=== PATIENT | male | born 1940 | race Caucasian/White ===

== ENCOUNTER 2022-12-09 07:28 | Day surgery (SDC) | payer MEDICARE, SELFPAY ==
[2022-12-09] MEDS: KETOROLAC OPHTH 0.5% 1 DROP EYE-LEFT ×2 (07:45→07:50)
[2022-12-09] MEDS: TETRACAINE 0.5% OPHTH 1 DROP EYE-LEFT ×2 (07:45→07:50)
[2022-12-09 07:49] VITALS: BMI 19.7
[2022-12-09 07:57] VITALS: BP 172/108; PULSE 64; RESP 16; TEMP 36.9; O2SAT 98
[2022-12-09] MEDS: SODIUM CHLORIDE 0.9 % (FLUSH) 10 ML SYRINGE IVF (08:00)
--- NOTE | 2022-12-09 08:11 | SUR.PREOP ---
The eye drops brought by the patient (Ketorolac and Prednisolone) are examined and I have determined they are labeled by the patient's pharmacy for this patient as prescribed by the surgeon. The bottles are intact, recently obtained and appear to be correct.
[2022-12-09] MEDS: TETRACAINE 0.5% OPHTH 2 DROP EYE-LEFT (08:41)
--- NOTE | 2022-12-09 08:42 | P.ANES_ITS ---
Anesthesia Charges Start Date/Time Anesthesia Start Date: 12/09/22 Anesthesia Start Time: 08:37 Stop Date/Time Anesthesia Stop Date: 12/09/22 Anesthesia Stop Time: 09:15 Summary Extremes of Age - Over 70 or under 1: OUTPATIENT PHYSICAL THERAPIST ASSISTANT
[2022-12-09] MEDS: BALANCED SALT IRRIG SOLN 15 ML EYE-LEFT (08:45)
--- NOTE | 2022-12-09 09:22 | W.ANESCHARGE ---
Anesthesia Charges Start Date/Time Anesthesia Start Date: 12/09/22 Anesthesia Start Time: 08:37 Stop Date/Time Anesthesia Stop Date: 12/09/22 Anesthesia Stop Time: 09:15
--- NOTE | 2022-12-09 09:23 | W.ANESCHARGE ---
Anesthesia Charges Start Date/Time Anesthesia Start Date: 12/09/22 Anesthesia Start Time: 08:37 Stop Date/Time Anesthesia Stop Date: 12/09/22 Anesthesia Stop Time: 09:15 Summary Extremes of Age - Over 70 or under 1: MDA
[2022-12-09 09:31] VITALS: BP 159/96; PULSE 69; RESP 16; TEMP 37.1; O2SAT 96
--- NOTE | 2022-12-09 10:15 | P.OPTPRC_ITS ---
Procedure Note Date of procedure: 12/09/22 Will [facility] bill your pro fee for this procedure?: Yes Procedure Description: SURGEON: Siria Alvarez MD PREOPERATIVE DIAGNOSIS: Nuclear sclerotic cataract, left eye. POSTOPERATIVE DIAGNOSIS: Nuclear sclerotic cataract, left eye. NAME OF OPERATION: Phacoemulsification of cataract with posterior chamber intraocular lens implantation in the left eye. ANESTHESIA: Topical. ESTIMATED BLOOD LOSS: Less than 2 cc. COMPLICATIONS: None. PATHOLOGY SPECIMEN: None. INDICATIONS: See consult note for details. The risks, benefits and alternatives of the procedure were explained to the patient, who elected to proceed and signed informed consent to do so. PROCEDURE: The patient was brought to the pre-holding area where the left eye was identified as the operative eye. I placed my initials above this eye. The patient received eye drops consisting of 0.5% tetracaine, 1% tropicamide, 10% phenylephrine, and 0.5% ketorolac. The patient was then brought to the operating room where the left eye was again identified as the operative eye. The eye was prepped with Betadine and draped in the usual sterile ophthalmic fashion. A #15 super-sharp blade was used to create a paracentesis site. 1% non-preserved intracameral lidocaine was injected into the anterior chamber. Endocoat was injected into the anterior chamber. A 2.4 mm keratome was used to create a three-plane self-sealing incision 1 mm anterior to the temporal limbus. A cystotome was used to create an anterior capsular leaflet. The Utrata forceps were used to extend this to form a continuous curvilinear capsulorrhexis. Hydrodissection was performed. The cataract was removed with phacoemulsification using the [id number] technique. The irrigation and aspiration tip was used to remove the remaining cortex. Healon was injected into the capsular bag. An COURTNEY ZCB00 intraocular lens of 18.5 diopters was injected into the capsular bag. The irrigation and aspiration tip was used to remove the remaining viscoelastic. Balanced salt solution on a cannula was used to hydrate the wound, and the wound was found to be watertight. The pupil was noted to be round. DISPOSITION: The patient was taken to the recovery room and discharged to home in stable condition. The patient was instructed to call me or go to the emergency department with any sudden change, including dramatic loss of vision, severe pain in the eye or eyebrow region, nausea, or vomiting. The patient will follow up in the clinic tomorrow morning.
== END 2022-12-09 10:00 | disposition home or self-care (01) ==
LOC: OR 07:30
PROVIDERS: PCP Family Medicine; Visit Provider Ophthalmology
PROC: (CPT 66984; principal; 2022-12-09 07:30)
DX: H25.12 Age-related nuclear cataract, left eye (principal)
CPT/HCPCS: 66984; 00142; 99100; A9270; J2250; J3010; V2632

== ENCOUNTER 2023-02-08 11:23 | Outpatient (CLI) | payer MEDICARE, SELFPAY | END 2023-02-08 11:24 | disposition home or self-care (01) | LOC: AMB 02-18 19:39 | PROVIDERS: PCP Family Medicine; Visit Provider Internal Medicine | DX: S59.901A Unspecified injury of right elbow, initial encounter (principal); W10.9XXA Fall (on) (from) unspecified stairs and steps, initial encounter; Y92.008 Other place in unspecified non-institutional (private) residence as the place of occurrence of the external cause | CPT/HCPCS: A0425; A0427 ==

== ENCOUNTER 2023-02-08 12:12 | Inpatient (IN) | payer MEDICARE, SELFPAY ==
[2023-02-08] VITALS (29 sets, daily range): BP systolic 122–150; BP diastolic 74–91; PULSE 72–82; RESP 16; TEMP 36.4–36.6; O2SAT 90–99; BMI 18.5; BMI 18.6
--- NOTE | 2023-02-08 | CRLHL7_ITS ---
For Patients: As a result of the Cures Act, medical imaging exams and procedure reports are released immediately into your electronic medical record. You may view this report before your referring provider. If you have questions, please contact your health care provider. INDICATION: Trauma. TECHNIQUE: CT cervical spine without contrast. COMPARISON: None. FINDINGS: Vertebrae: Alignment is normal. There are no fractures or suspicious bony lesions. Discs and facet joints: There are diffuse degenerative changes in the disc spaces and facet joints. Extraspinal findings: Paraspinous soft tissues are unremarkable. IMPRESSION: 1. No sign of acute injury. 2. Multilevel degenerative spondylosis. Please note that all CT scans at this facility use dose modulation, iterative reconstruction, and/or weight-based dosing when appropriate to reduce radiation dose to as low as reasonably achievable. Dictated by Jose Cruz Laurent MD @ 02/08/2023 1:27:41 PM (Electronically Signed)
--- NOTE | 2023-02-08 | CRLHL7_ITS ---
For Patients: As a result of the Century Cures Act, medical imaging exams and procedure reports are released immediately into your electronic medical record. You may view this report before your referring provider. If you have questions, please contact your health care provider. INDICATION: Trauma. TECHNIQUE: CT head without contrast. COMPARISON: None. FINDINGS: CSF spaces: Mild diffuse parenchymal volume loss. Brain parenchyma and extra-axial spaces: Moderate chronic white matter ischemic disease. The price-white differentiation is normal. No sign of mass, hemorrhage, or midline shift. No extra-axial fluid collection. Skull base and calvarium: The visualized paranasal sinuses and mastoid air cells demonstrate no acute or significant findings. The visualized orbits are grossly unremarkable. No skull fractures. IMPRESSION: No acute intracranial abnormality. Please note that all CT scans at this facility use dose modulation, iterative reconstruction, and/or weight-based dosing when appropriate to reduce radiation dose to as low as reasonably achievable. Dictated by Jose Cruz Laurent MD @ 02/08/2023 1:24:47 PM (Electronically Signed)
--- NOTE | 2023-02-08 | CRLHL7_ITS ---
For Patients: As a result of the 21st Century Cures Act, medical imaging exams and procedure reports are released immediately into your electronic medical record. You may view this report before your referring provider. If you have questions, please contact your health care provider. INDICATION: Trauma. TECHNIQUE: CT chest, abdomen and pelvis acquired with 74 cc Isovue 370 IV contrast. COMPARISON: CT abdomen/pelvis, December 19, 2017.. FINDINGS: CHEST: Cardiovascular structures: Heart size is normal. Coronary artery calcifications. Coronary artery calcifications. Thoracic aorta and main pulmonary artery are normal in caliber. Mediastinum and dillan: No mass or adenopathy. Lungs and pleura: Indeterminate 5.8 centimeter focal right upper lobe heterogeneous lesion, possibly loculated pleural effusion. Additional moderate right lower lobe loculated pleural effusion with pleural enhancement. Scattered atelectasis. No pneumothorax. Chest wall and axilla: No mass or adenopathy. Bones: Acute mild T12 compression fracture. ABDOMEN AND PELVIS: Liver: Unremarkable. No sign of acute injury. Gallbladder and bile ducts: Unremarkable. Pancreas: Unremarkable. Spleen: 10.1 centimeter cystic lesion arising from the superior aspect of the spleen Adrenal glands: Unremarkable. Kidneys: Tiny right renal cyst. GI tract: Unremarkable. Vascular structures: Unremarkable. Mesenteric arteries are patent. Lymph nodes: Unremarkable. Miscellaneous: Unremarkable. No free air or significant free fluid. Pelvic Organs: Moderately distended bladder. Bones: No acute fracture or dislocation. IMPRESSION: Acute mild T12 compression fracture. Recommend correlation with point tenderness. 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 Some internal hyperdensity which could suggest intracystic bleeding. Otherwise, no acute intra-abdominal/pelvic abnormality including large volume hemoperitoneum. Indeterminate 5.8 centimeter focal right upper lobe heterogeneous lesion, possibly loculated pleural effusion. Additional moderate right lower lobe loculated pleural effusion with pleural enhancement. Questionable connection between these TWO lesions which could suggest complex empyema. Sterility cannot be assessed by imaging. Right apical Pancoast tumor not entirely excluded. Recommend correlation with prior imaging if available. Consider outpatient non emergent PET CT or thoracentesis for tissue sampling if medically necessary. Case discussed with Hoang Blake at 1:50 p.m. on 02/08/2023. Please note that all CT scans at this facility use dose modulation, iterative reconstruction, and/or weight-based dosing when appropriate to reduce radiation dose to as low as reasonably achievable. Dictated by Jose Cruz Laurent MD @ 02/08/2023 1:48:26 PM (Electronically Signed)
[2023-02-08 13:00] LABS: Basophils Percent Auto 0.1 % (0.0-3.0); Eosinophils Percent Auto 0.2 % (0.0-7.0); Hematocrit 36.3 % (37.0-53.0); Hemoglobin* 12.5 gm/dL (13.5-17.5); Immature Granulocytes Pct Auto 0.4 %; Lymphocytes Percent Auto 50.4 % (20-44); Mean Corpuscular HGB Conc 34 gm/dL (32-36); Mean Corpuscular Hemoglobin 31 pg (26-34); Mean Corpuscular Volume 89 fL (80-100); Monocytes Percent Auto 2.8 % (0.0-11.0); Neutrophils Percent Auto 46.1 % (42.0-72.0); Platelet Count* 290 K/uL (140-440); RDW Coefficient of Variation % 13.7 % (11.5-15.5); Red Blood Count 4.06 m/uL (4.30-5.90); White Blood Count* 23.44 K/uL (4.50-11.00)
[2023-02-08 13:06] LABS: Slide Review Reflex Yes
[2023-02-08 13:11] LABS: Albumin* 3.9 g/dL (3.3-5.0)
[2023-02-08 13:12] LABS: Chloride* 83 mmol/L (96-114); Potassium* 3.9 mmol/L (3.6-5.1)
[2023-02-08 13:13] LABS: Prothrombin Time 13.8 Seconds
[2023-02-08 13:14] LABS: Anion Gap 9 mEq/L (7-15); Aspartate Amino Transferase* 37 U/L (12-35); Bilirubin Direct* 0.1 mg/dL (0.0-0.5); Bilirubin Total* 0.4 mg/dL (0.1-1.5); Carbon Dioxide* 30 mmol/L (20-32); Creatinine* 0.6 mg/dL (0.5-1.5); Est. Creatinine Clearance* 52.04; Estimated Glomerular Filt Rate 97 ml/min; Partial Thromboplastin Time* 32 Seconds (23-33); Total Protein* 6.4 g/dL (6.0-8.3)
[2023-02-08 13:15] LABS: Alanine Aminotransferase* 35 U/L (4-50); Alkaline Phosphatase* 94 U/L (40-150); Blood Urea Nitrogen* 12 mg/dL (7-30); Glucose* 88 mg/dL (60-115)
[2023-02-08 13:16] LABS: Ethanol* 0.25 % (0.01-0.03); Sodium* 122 mmol/L (135-149)
[2023-02-08 13:27] LABS: Troponin I* < 0.01 ng/mL (0.01-0.04)
[2023-02-08 13:28] LABS: Slide Review Acceptable Review (Acceptable)
[2023-02-08 13:28] LABS: Appearance Urine Clear (Clear); Bilirubin Urine Negative (Negative); Blood Urine 2+ (Negative); Color Urine Yellow (Yellow); Glucose Urine Negative (Negative); Ketones Urine Negative (Negative); Leukocyte Esterase Urine Negative (Negative); Nitrite Urine Negative (Negative); Protein Urine Trace (Negative); Urobilinogen Urine 0.2 (0.2-1.0)
[2023-02-08 13:55] LABS: RBC Urine 0-2 (0-2); WBC Urine 0-2 (0-5)
[2023-02-08 14:10] LABS: PCR FLU A Negative PCR FLU A (Negative); PCR FLU B Negative PCR FLU B (Negative); PCR RSV Negative PCR RSV (Negative)
[2023-02-08 14:13] LABS: SARS PCR* Negative SARS-CoV-2 (Negative)
--- NOTE | 2023-02-08 14:15 | ED_ITS ---
HPI - Fall General Date Seen: 02/08/23 Chief Complaint: Fall/Minor Trauma Stated Complaint: Fall down stairs Time Seen by Provider: 02/08/23 12:20 Source: patient, family and EMS Mode of arrival: EMS Limitations: no limitations History of Present Illness HPI Narrative: Patient is 83-year-old gentleman who presents here after a fall, he is brought in as a TTA be EMS. Patient has no complaints, tells me he is not in any pain. He by history slid down approximately 10-12 steps. Caught up and then was helped back up the stairs and then slid down the stairs also. He says he did really fall is more of a slide down the stairs. No loss of consciousness, but he has been very weak for the last 2-3 days, he has no history of fevers chills or sweats, no history of numbness tingling weakness, sore throat, diplopia double vision headaches. Or other issues. Is on aspirin, and on no other anticoagulants. He lives with his in the community, and there is son is also involved. Denies alcohol or drug use. MD complaint: fall Fall from: standing and down stairs (#) (10) Fall witnessed: yes, by family Place fall occurred: home Loss of consciousness: No Prolonged down time: no Symptoms prior to fall: other (Weakness) Associated symptoms (after fall): denies Related Data Home Medications Medication Instructions Recorded Confirmed aspirin 81 mg tablet,delayed 81 mg PO DAILY 11/24/22 02/08/23 release (Adult Low Dose Aspirin) chlorthalidone 25 mg tablet 25 mg PO DAILY 11/24/22 02/08/23 latanoprost 0.005 % eye drops 1 drp ophthalmic (eye) QPM 11/24/22 02/08/23 losartan 50 mg tablet 50 mg PO DAILY 11/24/22 02/08/23 lovastatin 40 mg tablet 20 mg PO HS 11/24/22 02/08/23 omeprazole 20 mg capsule,delayed 20 mg PO DAILY 11/24/22 02/08/23 release metoprolol succinate 100 mg 100 mg PO DAILY 02/08/23 02/08/23 tablet,extended release 24 hr timolol maleate 0.5 % eye drops 1 drp ophthalmic (eye) BID 02/08/23 02/08/23 Allergies Allergy/AdvReac Type Severity Reaction Status Date / Time No Known Drug Allergies Allergy Verified 02/08/23 13:13 Review of Systems Status of ROS: Reports: 10 or more systems reviewed and unremarkable except as noted in History and below [facility] Medical History Ganglion cyst ?M67.40 - Ganglion, unspecified site (ICD-10) Surgical History History of cataract extraction with lens replacement History of hernia repair ?Z98.890 - Other specified postprocedural states (ICD-10) ?Z87.19 - Personal history of other diseases of the digestive system (ICD-10) Social History Smoking Status: Never smoker Do you use any of these nicotine containing products: None How often do you have a drink containing alcohol: 2-3 times a week Alcohol type: beer How many standard drinks containing alcohol do you have on a typical day: 1 or 2 How often do you have six or more drinks on one occasion: Never AUDIT-C Alcohol total score: 3 Non-prescribed substance use: denies use Caffeine: Yes Little interest or pleasure in doing things: several days Feeling down, depressed, or hopeless: several days Exam Narrative: Exam Narrative: Patient is seen in room a, TT a is called. He is alert and oriented x3, GCS is 15/15 pupils equal round reactive to light there is no scleral icterus redness TMs normal no facial tenderness no swelling over his head or room back of his head. His neck is supple, he is in a C-collar, do not detect the alcohol on his breath. His chest is good air entry bilaterally with easy respirations he is very thin, heart sounds no clicks murmurs or gallops his abdomen is soft, there is no evidence of tenderness, is with his right posterior iliac crest, there is some bruising. Consistent with a very small external hematoma. Moves all extremities independently and well both right and left follows directions normally, proximal distal strength is assessed and normal, no palpable tenderness noted over his L-spine T-spine or C-spine on palpation percussion. Skin reveals no other petechiae rashes a not otherwise listed. Const: Vital Signs, click to edit/add: Vital Signs - 24 hr 02/08/23 12:24 02/08/23 12:53 Temperature 97.5 F L Pulse Rate [Left P ulse Oximeter] 72 Respiratory Rate 16 Blood Pressure [Le ft Upper Arm] 132/91 H Pulse Oximetry 95 95 Oxygen Delivery Me thod Room Air Documenting provider has reviewed patient's vital signs: yes Course Course ED Course: I spoke with the patient, his , son, he did want to stay in the hospital, but was unable to get out and walk. Given his safety concerns his strongly suggest he stay in the hospital, until he can at least ambulate on his own. I spoke to Inpatient physician who accepted him. 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 Which could be the reasoning behind his low-sodium. I also recommend the serial hemoglobins, to rule out a significant bleed. Vital Signs Vital signs: Initial Vital Signs Pulse Oximetry 95 02/08/23 12:24 Vital Signs Pulse Oximetry 95 02/08/23 12:24 Temperature 97.5 F L 02/08/23 12:53 Pulse Rate 72 02/08/23 12:53 Respiratory Rate 16 02/08/23 12:53 Blood Pressure 132/91 H 02/08/23 12:53 Pulse Oximetry 95 02/08/23 12:53 Oxygen Delivery Method Room Air 02/08/23 12:53 MDM - Fall MDM Narrative Medical decision making narrative: Life-threatening differential diagnosis is considered include: Subarachnoid hemorrhage, subdural hemorrhage, epidural hemorrhage. Other differential diagnosis considered include concussion, closed head injury, or neck fracture. Differential Diagnosis Differential diagnosis: Likely syncope Medical Records Attestation: I reviewed the patient's medical records. Lab Data Attestation: I reviewed the patient's lab results. Lab results narrative: Sodium is very low at 122, his white count is elevated which is consistent with his known chronic lymphocystic leukemia. Labs: Lab Results 02/08/23 02/08/23 02/08/23 Range/Units 12:52 13:20 Unknown WBC 23.44 H (4.50-11.00) K/uL RBC 4.06 L (4.30-5.90) m/uL Hgb 12.5 L (13.5-17.5) gm/dL Hct 36.3 L (37.0-53.0) % MCV 89 (80-100) fL MCH 31 (26-34) pg MCHC 34 (32-36) gm/dL RDW Coeff of Jocy 13.7 (11.5-15.5) % Plt Count 290 (140-440) K/uL Neut % (Auto) 46.1 (42.0-72.0) % Lymph % (Auto) 50.4 H (20-44) % [place] % (Auto) 2.8 (0.0-11.0) % Eos % (Auto) 0.2 (0.0-7.0) % Baso % (Auto) 0.1 (0.0-3.0) % Neut # (Auto) 10.80 H (1.7-7.0) K/uL Lymph # (Auto) 11.80 H (0.90-2.90) K/uL [place] # (Auto) 0.70 (0.00-0.90) K/UL Eos # (Auto) 0.00 (0.00-0.50) K/uL Baso # (Auto) 0.00 (0.00-0.30) K/uL Abs Immat Gran (auto) 0.10 (0.00-0.30) K/uL Imm/Tot Granulo (auto) 0.4 % Diff Slide Review Acceptable Review (Acceptable) INR 1.00 (0.91-1.10) APTT 32 (23-33) Seconds Sodium 122 L* (135-149) mmol/L Potassium 3.9 (3.6-5.1) mmol/L Chloride 83 L (96-114) mmol/L Carbon Dioxide 30 (20-32) mmol/L Anion Gap 9 (7-15) mEq/L BUN 12 (7-30) mg/dL Creatinine 0.6 (0.5-1.5) mg/dL Estimated Creat Clear 52.04 Estimated GFR 97 ml/min Glucose 88 (60-115) mg/dL Calcium 8.0 L (8.4-10.6) mg/dL Total Bilirubin 0.4 (0.1-1.5) mg/dL Direct Bilirubin 0.1 (0.0-0.5) mg/dL AST 37 H (12-35) U/L ALT 35 (4-50) U/L Alkaline Phosphatase 94 (40-150) U/L Troponin I < 0.01 L (0.01-0.04) ng/mL Total Protein 6.4 (6.0-8.3) g/dL Albumin 3.9 (3.3-5.0) g/dL Urine Color Yellow (Yellow) Urine Appearance Clear (Clear) Urine pH 7.0 (5.0-8.5) Ur Specific [place] 1.020 (1.000-1.030) Urine Protein Trace A (Negative) Urine Glucose (UA) Negative (Negative) Urine Ketones Negative (Negative) Urine Blood 2+ A (Negative) Urine Nitrite Negative (Negative) Urine Bilirubin Negative (Negative) Urine Urobilinogen 0.2 (0.2-1.0) Ur Leukocyte Esterase Negative (Negative) Urine RBC 0-2 (0-2) Urine WBC 0-2 (0-5) Ur Squamous Epith Cells None (None-Few) Urine Bacteria None (None) Urine Yeast Few A (None) Ethyl Alcohol 0.25 H (0.01-0.03) % SARS-CoV-2 (PCR) Negative SARS-CoV-2 (Negative) Influenza Type A (PCR) Negative PCR FLU A (Negative) Influenza Type B (PCR) Negative PCR FLU B (Negative) RSV (PCR) Negative PCR RSV (Negative) Imaging Data CT scan - head: Attestation: I have reviewed the pertinent imaging results. My impression: Patient: LEA SALAZAR Facility:?[facility] Patient ID:?[id number] Site Patient ID:?[id number]. Site :?[id number] Study:?CT Spine Cervical CODE TRAUMA - W/O-02/08/2023 12:43:41 PM Ordering Physician:Cristina Bolton Final Report: INDICATION: Trauma. TECHNIQUE: CT cervical spine without contrast. COMPARISON: None. FINDINGS: Vertebrae: Alignment is normal. There are no fractures or suspicious bony lesions. Discs and facet joints: There are diffuse degenerative changes in the disc spaces and facet joints. Extraspinal findings: Paraspinous soft tissues are unremarkable. IMPRESSION: 1. No sign of acute injury. 2. Multilevel degenerative spondylosis. Please note that all CT scans at this facility use dose modulation, iterative reconstruction, and/or weight-based dosing when appropriate to reduce radiation dose to as low as reasonably achievable. Dictated by Jose Cruz Laurent MD @ 02/08/2023 1:27:41 PM (Electronic Signature) Patient: [facility] Facility:?[facility] Patient ID:?[id number] Site Patient ID:?[id number]. Site :?[id number] Study:?CT Head CODE TRAUMA - W/O-02/08/2023 12:45:06 PM Ordering Physician:Cristina Bolton Final Report: INDICATION: Trauma. TECHNIQUE: CT head without contrast. COMPARISON: None. FINDINGS: CSF spaces: Mild diffuse parenchymal volume loss. Brain parenchyma and extra-axial spaces: Moderate chronic white matter ischemic disease. The price-white differentiation is normal. No sign of mass, hemorrhage, or midline shift. No extra-axial fluid collection. Skull base and calvarium: The visualized paranasal sinuses and mastoid air cells demonstrate no acute or significant findings. The visualized orbits are grossly unremarkable. No skull fractures. IMPRESSION: No acute intracranial abnormality. Please note that all CT scans at this facility use dose modulation, iterative reconstruction, and/or weight-based dosing when appropriate to reduce radiation dose to as low as reasonably achievable. Dictated by Jose Cruz Laurent MD @ 02/08/2023 1:24:47 PM (Electronic Signature) Patient: [facility] Facility:?[facility] Patient ID:?[id number] :?1940 Study:?CT Chest/Abd/Pelvis CODE TRAUMA - W/ 74CC [id number]/1/2024 12:45:56 PM Ordering Physician:Cristina Bolton Final Report: INDICATION: Trauma. TECHNIQUE: CT chest, abdomen and pelvis acquired with 74 cc Isovue 370 IV contrast. COMPARISON: CT abdomen/pelvis, December 19, 2017.. FINDINGS: CHEST: Cardiovascular structures: Heart size is normal. Coronary artery calcifications. Coronary artery calcifications. Thoracic aorta and main pulmonary artery are normal in caliber. Mediastinum and dillan: No mass or adenopathy. Lungs and pleura: Indeterminate 5.8 centimeter focal right upper lobe heterogeneous lesion, possibly loculated pleural effusion. Additional moderate right lower lobe loculated pleural effusion with pleural enhancement. Scattered atelectasis. No pneumothorax. Chest wall and axilla: No mass or adenopathy. Bones: Acute mild T12 compression fracture. ABDOMEN AND PELVIS: Liver: Unremarkable. No sign of acute injury. Gallbladder and bile ducts: Unremarkable. Pancreas: Unremarkable. Spleen: 10.1 centimeter cystic lesion arising from the superior aspect of the spleen Adrenal glands: Unremarkable. Kidneys: Tiny right renal cyst. GI tract: Unremarkable. Vascular structures: Unremarkable. Mesenteric arteries are patent. Lymph nodes: Unremarkable. Miscellaneous: Unremarkable. No free air or significant free fluid. Pelvic Organs: Moderately distended bladder. Bones: No acute fracture or dislocation. IMPRESSION: Acute mild T12 compression fracture. Recommend correlation with point tenderness. 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 Some internal hyperdensity which could suggest intracystic bleeding. Otherwise, no acute intra-abdominal/pelvic abnormality including large volume hemoperitoneum. Indeterminate 5.8 centimeter focal right upper lobe heterogeneous lesion, possibly loculated pleural effusion. Additional moderate right lower lobe loculated pleural effusion with pleural enhancement. Questionable connection between these TWO lesions which could suggest complex empyema. Sterility cannot be assessed by imaging. Right apical Pancoast tumor not entirely excluded. Recommend correlation with prior imaging if available. Consider outpatient non emergent PET CT or thoracentesis for tissue sampling if medically necessary. Case discussed with Hoang Blake at 1:50 p.m. on 02/08/2023. Please note that all CT scans at this facility use dose modulation, iterative reconstruction, and/or weight-based dosing when appropriate to reduce radiation dose to as low as reasonably achievable. Dictated by Jose Cruz Laurent MD @ 02/08/2023 1:48:26 PM (Electronic Signature) Discharge Plan Discharge Clinical Impression: Pleural effusion, Splenic cyst, Acute hyponatremia, Chronic lymphocytic leukemia, Weakness, Fall Patient Disposition: Admitted As Inpatient Condition: Guarded
[2023-02-08 17:43] LABS: Alanine Aminotransferase* 35 U/L (4-50); Creatine Kinase* 94 U/L (54-186)
[2023-02-08] MEDS: 0.9 % SODIUM CHLORIDE 1000 ml 1,000 ML 125 ML IV (17:46)
[2023-02-08] MEDS: THIAMINE 100 MG TABLET PO (17:46)
--- NOTE | 2023-02-08 18:43 | PM.IMHP1 ---
Hospitalist- H&P: HPI History of Present Illness Date Seen: 02/08/23 Chief complaint: Fall down stairs Narrative: Butch Musa is a 83 year old man presents to the hospital emergency department via EMS for evaluation of being unsteady on his feet in having slid down the stairs in his home. In his home he went upstairs to get some coffee in on his weight down he slipped and slid down the steps. Did not strike his head. No loss of consciousness. Right side of his arm and buttock area did strike the steps. No pain. insisted that he come in for further assessment. On assessment in the emergency department serum sodium is low at 122. CT scan of head and cervical spine is unremarkable. CT scan of chest, abdomen, pelvis also obtained and demonstrated from an acute mild T12 compression fracture, presumably from the fall. CT scan also demonstrated a 10 cm cystic lesion arising from the superior aspect of the spleen. Lastly the CT scan of the chest demonstrated an indeterminate 5.8 cm focal right upper lobe heterogeneous lesion possibly a loculated pleural effusion. Moderate right lower lobe loculated pleural effusion with pleural enhancement also suggested. There was concern whether not these 2 lesions could suggest a complex empyema. Mention is made that a right apical Pancoast tumor is not entirely excluded and that consideration be given to an outpatient nonemergent PET-CT or thoracentesis for tissue sampling. Toxicology testing in the emergency department demonstrates a blood alcohol level of 0.25. Patient tells me that he has been drinking about 3 shots of vodka daily since finding out his son was diagnosed with Parkinson's about 2-3 months ago. He tells me he is drinking this on the slide I, that his does not know he is drinking this. Denies drinking large volumes of water. Review of Systems Status of ROS: Reports: 10 or more systems reviewed and unremarkable except as noted in History and below Narrative: Denies fevers, rigors, diaphoresis. Denies night sweats or weight loss. Denies cough, dyspnea at rest, paroxysmal nocturnal dyspnea. Denies chest heaviness, pressure, tightness, or pain. Denies syncope or near-syncope. Denies loss of consciousness. Denies lower extremity edema. Denies nausea or vomiting. Denies abdominal pain. [facility] Medical History (Updated 02/08/23 @ 19:16 by Inocencio Palomino MD) Chronic lymphocytic leukemia ?C91.10 - Chronic lymphocytic leukemia of B-cell type not having achieved remission (ICD-10) Hyperlipidemia ?E78.5 - Hyperlipidemia, unspecified (ICD-10) GERD (gastroesophageal reflux disease) ?K21.9 - Gastro-esophageal reflux disease without esophagitis (ICD-10) HTN (hypertension) ?I10 - Essential (primary) hypertension (ICD-10) Cataract ?H26.9 - Unspecified cataract (ICD-10) Spleen hematoma ?S36.029A - Unspecified contusion of spleen, initial encounter (ICD-10) Ganglion cyst ?M67.40 - Ganglion, unspecified site (ICD-10) Surgical History History of cataract extraction with lens replacement History of hernia repair ?Z98.890 - Other specified postprocedural states (ICD-10) ?Z87.19 - Personal history of other diseases of the digestive system (ICD-10) Social History What is your current living situation?: I presently have a place to live Problems where you live: no known problems Problems where you live details: NA In the past 12 months, utilities in danger of being shut off: no In past 12 months, lack of transportation kept you from medical appts, meetings, work, or getting things needed for daily living: no In the past 12 mos, have been you worried that your food would run out before you had money to buy more?: never true In the past 12 mos, the food you bought just didn't last and you didn't have money to buy more?: never true Highest level of school completed/degree received: high school graduate Smoking Status: Never smoker Do you use any of these nicotine containing products: None Second hand tobacco smoke exposure: No How many standard drinks containing alcohol do you have on a typical day: 1 or 2 How often do you have six or more drinks on one occasion: Never AUDIT-C Alcohol total score: 0 Non-prescribed substance use: denies use Caffeine: Yes How often does anyone, including family, friends and others, physically hurt you: never How often does anyone, including family, friends and others, insult or talk down to you: never How often does anyone, including family, friends and others, threaten you with harm: never How often does anyone, including family, friends and others, scream or curse at you: never Little interest or pleasure in doing things: several days Feeling down, depressed, or hopeless: several days service: No Meds Home Medications and Allergies Home Medications Medication Instructions Recorded Confirmed Type aspirin 81 mg tablet,delayed 81 mg PO DAILY 11/24/22 02/08/23 History release (Adult Low Dose Aspirin) chlorthalidone 25 mg tablet 25 mg PO DAILY 11/24/22 02/08/23 History latanoprost 0.005 % eye drops 1 drp ophthalmic (eye) QPM 11/24/22 02/08/23 History losartan 50 mg tablet 50 mg PO DAILY 11/24/22 02/08/23 History lovastatin 40 mg tablet 20 mg PO HS 11/24/22 02/08/23 History omeprazole 20 mg capsule,delayed 20 mg PO DAILY 11/24/22 02/08/23 History release metoprolol succinate 100 mg 100 mg PO DAILY 02/08/23 02/08/23 History tablet,extended release 24 hr timolol maleate 0.5 % eye drops 1 drp ophthalmic (eye) BID 02/08/23 02/08/23 History Allergies Allergy/AdvReac Type Severity Reaction Status Date / Time No Known Drug Allergies Allergy Verified 02/08/23 13:13 Exam Narrative: Exam Narrative: Examined patient in the hospital room. He appears comfortable no acute distress. Vision and hearing are grossly normal. Alert and oriented to self, place, time. Asks me several times the same question including why he has a low-sodium, what can be done to treat the low-sodium, does he have a tumor, what can be done to further assess or treat that, and so forth. Friendly, articulate, cooperative. Cranial nerves 3-12 are grossly normal. Moves all 4 extremities. Lungs clear to auscultation. Heart tones with regular rhythm. Grade 2/6 systolic murmur across precordium. Abdomen is thin with active bowel sounds, soft, nontender. Skin with some ecchymoses noted in right arm and right side of torsum. Const: Vital Signs, click to edit/add: Vital Signs - 24 hr 02/08/23 12:24 02/08/23 12:50 02/08/23 12:51 Temperature Pulse Rate 78 Pulse Rate [Left P ulse Oximeter] Pulse Rate [Pulse Oximeter] Respiratory Rate 16 Blood Pressure 131/84 126/75 Blood Pressure [Le ft Upper Arm] Blood Pressure [Ri ght Arm] Pulse Oximetry 95 95 Oxygen Delivery [facility] Room Air 02/08/23 12:52 02/08/23 12:53 02/08/23 13:00 Temperature 97.5 F L Pulse Rate 78 78 Pulse Rate [Left P ulse Oximeter] 72 Pulse Rate [Pulse Oximeter] Respiratory Rate 16 Blood Pressure Blood Pressure [Le ft Upper Arm] 132/91 H Blood Pressure [Ri ght Arm] Pulse Oximetry 93 95 93 Oxygen Delivery [facility] Room Air 02/08/23 13:02 02/08/23 13:11 02/08/23 13:15 Temperature Pulse Rate 81 80 79 Pulse Rate [Left P ulse Oximeter] Pulse Rate [Pulse Oximeter] Respiratory Rate Blood Pressure 128/83 132/75 Blood Pressure [Le ft Upper Arm] Blood Pressure [Ri ght Arm] Pulse Oximetry 94 96 94 Oxygen Delivery [facility] 02/08/23 13:22 02/08/23 13:30 02/08/23 13:32 Temperature Pulse Rate 79 82 78 Pulse Rate [Left P ulse Oximeter] Pulse Rate [Pulse Oximeter] Respiratory Rate Blood Pressure 126/82 141/85 H Blood Pressure [Le ft Upper Arm] Blood Pressure [Ri ght Arm] Pulse Oximetry 95 99 94 Oxygen Delivery [facility] 02/08/23 13:42 02/08/23 13:45 02/08/23 13:52 Temperature Pulse Rate 79 76 Pulse Rate [Left P ulse Oximeter] Pulse Rate [Pulse Oximeter] Respiratory Rate Blood Pressure 126/79 135/84 Blood Pressure [Le ft Upper Arm] Blood Pressure [Ri ght Arm] Pulse Oximetry 94 92 Oxygen Delivery [facility] 02/08/23 14:00 02/08/23 14:01 02/08/23 14:11 Temperature Pulse Rate 80 81 80 Pulse Rate [Left P ulse Oximeter] Pulse Rate [Pulse Oximeter] Respiratory Rate Blood Pressure 140/80 H 127/86 Blood Pressure [Le ft Upper Arm] Blood Pressure [Ri ght Arm] Pulse Oximetry 95 95 94 Oxygen Delivery [facility] 02/08/23 14:15 02/08/23 14:22 02/08/23 14:30 Temperature Pulse Rate 80 79 82 Pulse Rate [Left P ulse Oximeter] Pulse Rate [Pulse Oximeter] Respiratory Rate Blood Pressure 122/74 Blood Pressure [Le ft Upper Arm] Blood Pressure [Ri ght Arm] Pulse Oximetry 93 95 95 Oxygen Delivery Vt thod 02/08/23 14:31 02/08/23 14:42 02/08/23 14:51 Temperature Pulse Rate 78 78 Pulse Rate [Left P ulse Oximeter] Pulse Rate [Pulse Oximeter] Respiratory Rate 16 Blood Pressure 127/77 129/84 122/74 Blood Pressure [Le ft Upper Arm] Blood Pressure [Ri ght Arm] Pulse Oximetry 95 93 [facility] 02/08/23 15:30 02/08/23 15:30 02/08/23 16:27 Temperature 97.9 F 97.9 F Pulse Rate Pulse Rate [Left P ulse Oximeter] Pulse Rate [Pulse Oximeter] 77 77 Respiratory Rate 16 16 16 Blood Pressure Blood Pressure [Le ft Upper Arm] Blood Pressure [Ri ght Arm] 147/84 H 147/84 H Pulse Oximetry 90 90 90 [facility] Room Air Room Air Hospitalist - H&P: Result Labs Labs: Short CBC 02/08/23 Range/Units 12:52 WBC 23.44 H (4.50-11.00) K/uL Hgb 12.5 L (13.5-17.5) gm/dL Hct 36.3 L (37.0-53.0) % Plt Count 290 (140-440) K/uL BMP 02/08/23 12:52 Sodium 122 L* Potassium 3.9 Chloride 83 L Carbon Dioxide 30 BUN 12 Creatinine 0.6 Glucose 88 Calcium 8.0 L Cardiac Enzymes 02/08/23 02/08/23 Range/Units 12:52 12:53 Total Creatine Kinase 94 (54-186) U/L Troponin I < 0.01 L (0.01-0.04) ng/mL Liver Function 02/08/23 02/08/23 Range/Units 12:52 12:53 Total Bilirubin 0.4 (0.1-1.5) mg/dL Direct Bilirubin 0.1 (0.0-0.5) mg/dL AST 37 H (12-35) U/L ALT 35 35 (4-50) U/L Alkaline Phosphatase 94 (40-150) U/L Albumin 3.9 (3.3-5.0) g/dL Urine 02/08/23 Range/Units Unknown Urine Color Yellow (Yellow) Urine Appearance Clear (Clear) Urine pH 7.0 (5.0-8.5) Ur Specific [place] 1.020 (1.000-1.030) Urine Protein Trace A (Negative) Urine Glucose (UA) Negative (Negative) Assessment and Plan Assessment and plan (1) Fall: Status: Acute (2) Weakness: Problem comment: -physical therapy to assess and treat Status: Acute (3) Acute hyponatremia: Problem comment: -most likely related to alcohol abuse -stop the chlorthalidone -2000 mL fluid restriction -normal saline IV -monitor serum sodium Status: Acute (4) Alcohol intoxication: Status: Acute (5) Alcohol abuse: Problem comment: -he tells me he is drinking 3 shots of vodka daily, unbeknownst to his , and does not want his medical providers to tell his -monitor for alcohol withdrawal in cover with [facility] protocol Status: Acute (6) Chronic lymphocytic leukemia: Status: Acute (7) Pleural effusion: Problem comment: -CT scan of chest on 02/08/2023 demonstrates: Indeterminate 5.8 centimeter focal right upper lobe heterogeneous lesion, possibly loculated pleural effusion. Additional moderate right lower lobe loculated pleural effusion with pleural enhancement. Questionable connection between these TWO lesions which could suggest complex empyema. Sterility cannot be assessed by imaging. Right apical Pancoast tumor not entirely excluded. Recommend correlation with prior imaging if available. Consider outpatient non emergent PET CT or thoracentesis for tissue sampling if medically necessary. 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 Some internal hyperdensity which could suggest intracystic bleeding. Otherwise, no acute intra-abdominal/pelvic abnormality including large volume hemoperitoneum. Status: Acute (9) Impaired cognition: Problem comment: -he asks the same question multiple times. -unclear if this is acute or chronic -OT to assess cognition Status: Acute (10) T12 compression fracture: Problem comment: -possible, based on CT scan findings from 02/08/2023 but without symptoms on the patient's part: Acute mild T12 compression fracture. Status: Acute Plan 1. Reviewed impression with patient. Answered his questions. 2. Patient is agreeable with above stated plans and recommendations.
[2023-02-08 20:13] LABS: Sodium* 121 mmol/L (135-149)
[2023-02-08] MEDS: GABAPENTIN 300 MG CAPSULE PO (20:30)
[2023-02-08] MEDS: LATANOPROST 0.005% OPHTH 1 DROP EYE-BOTH (20:30)
[2023-02-08] MEDS: SODIUM CHLORIDE 0.9 % (FLUSH) 10 ML SYRINGE 5 ML IVF (20:30)
[2023-02-08] MEDS: timoloL maleate 0.5 % 1 DROP EYE-BOTH (20:34)
[2023-02-08] MEDS: SODIUM CHLORIDE 1 GM TABLET PO (21:33)
--- NOTE | 2023-02-08 22:21 | PC.NURSE ---
Pt arrived to floor at 1500 from ED.?Pt alert and oriented. Pt pleasant and cooperative. Pt had no complaints of pain. Pt has bruises throughout body; mainly on the right side. Pt is SBA with gait belt and walker. Pt using call light appropriately. Pt is currently on Q4 CWAW?s; scores as follows: 1,0,0.?
[2023-02-09] VITALS (9 sets, daily range): BP systolic 131–165; BP diastolic 90–115; PULSE 63–115; RESP 16–18; TEMP 36.7–36.8; O2SAT 92–96; BMI 18.7
[2023-02-09] MEDS: MELATONIN 3 MG TABLET PO ×2 (00:09→20:08)
[2023-02-09] MEDS: ACETAMINOPHEN 325 MG TABLET 650 MG PO ×2 (00:27→20:07)
[2023-02-09] MEDS: 0.9 % SODIUM CHLORIDE 1000 ml 1,000 ML 125 ML IV ×3 (01:41→17:15)
[2023-02-09] MEDS: OMEPRAZOLE 20 MG CAPSULE DR PO (07:01)
[2023-02-09 07:12] LABS: Hematocrit 35.4 % (37.0-53.0); Hemoglobin* 12.6 gm/dL (13.5-17.5); Mean Corpuscular HGB Conc 36 gm/dL (32-36); Mean Corpuscular Hemoglobin 31 pg (26-34); Mean Corpuscular Volume 87 fL (80-100); Platelet Count* 284 K/uL (140-440); Red Blood Count 4.07 m/uL (4.30-5.90); White Blood Count* 17.64 K/uL (4.50-11.00)
[2023-02-09 07:28] LABS: Albumin* 3.9 g/dL (3.3-5.0); Chloride* 84 mmol/L (96-114); Potassium* 3.1 mmol/L (3.6-5.1); Slide Review Reflex No
[2023-02-09 07:30] LABS: Creatinine* 0.5 mg/dL (0.5-1.5); Est. Creatinine Clearance* 52.78; Estimated Glomerular Filt Rate 102 ml/min
[2023-02-09 07:31] LABS: Anion Gap 13 mEq/L (7-15); Aspartate Amino Transferase* 36 U/L (12-35); Blood Urea Nitrogen* 11 mg/dL (7-30); Calcium* 8.2 mg/dL (8.4-10.6); Carbon Dioxide* 25 mmol/L (20-32); Creatine Kinase* 129 U/L (54-186); Glucose* 79 mg/dL (60-115); Phosphorus* 3.3 mg/dL (2.5-4.5)
--- NOTE | 2023-02-09 07:39 | PC.NURSE ---
Pt alert and oriented x3. Afebrile. Pt reports 3/10 pain in lower back pain managed with PRN medications. Pt CIWA scores 0-1. Pt denies SOB, chest pain, and N/V. Pt is up SBA with walker and gait belt. Pt slept poorly overnight, PRN melatonin given with little relief.
[2023-02-09 07:44] LABS: Sodium* 122 mmol/L (135-149)
[2023-02-09] MEDS: MULTIVITAMIN/MINERALS 1 TABLET 1 TAB PO (09:26)
[2023-02-09] MEDS: SODIUM CHLORIDE 0.9 % (FLUSH) 10 ML SYRINGE 5 ML IVF ×2 (09:26→20:10)
[2023-02-09] MEDS: GABAPENTIN 300 MG CAPSULE PO ×2 (09:26→20:08)
[2023-02-09] MEDS: LOSARTAN POTASSIUM 50 MG TABLET PO (09:26)
[2023-02-09] MEDS: SODIUM CHLORIDE 1 GM TABLET PO ×3 (09:26→17:14)
[2023-02-09] MEDS: METOPROLOL SUCCINATE (XL) 100 MG TAB PO (09:26)
[2023-02-09] MEDS: FOLIC ACID 1 MG TABLET PO (09:26)
[2023-02-09] MEDS: timoloL maleate 0.5 % 1 DROP EYE-BOTH ×2 (09:27→20:10)
--- NOTE | 2023-02-09 13:59 | PC.NURSE ---
End of shift: Patient has been up with assist of 1 and walker a few times today. PIV intact. Lung sounds clear. Denies nausea/vomiting. CIWAs are 0-4 range. Has mentioned many times I don't want my to know about the blood alcohol result. I am going to stop drinking. I have just had a lot of things going on in my life and this helps take the edge off. Patient also requested some Ativan for anxiety. MD was notified of this. Patient voiding. LBM was a few days ago but states that is normal and does not feel uncomfortable. Pt on a 2L fluid restriction and regular diet. Appetite is poor but forcing himself to eat. PT/OT following patient. Will do a MOCA once sodium is better. Patient concerned about the spot that was found on his lung. Patient aware that this will be looked more into in the outpatient setting. and daughter in law were here this morning but gone now.
--- NOTE | 2023-02-09 14:39 | PM.IMPN1 ---
Progress Note: A&P Assessment and plan (1) Fall: Problem details: -while intoxicated, resulting in to T12 fracture -PT/OT Status: Acute (2) Weakness: Problem details: -in setting of alcohol use and hyponatremia -physical therapy to assess and treat Status: Acute (3) Acute hyponatremia: Problem details: -most likely related to alcohol abuse -stop the chlorthalidone -decrease to 1800 mL fluid restriction -normal saline IV as he appears a bit dry -monitor serum sodium Status: Acute (4) Alcohol intoxication: Problem details: -blood alcohol 0.25 on admission. CIWA protocol Status: Acute (5) Alcohol abuse: Problem details: -he tells me he is drinking 3 shots of vodka daily, unbeknownst to his , and does not want his medical providers to tell his -monitor for alcohol withdrawal in cover with CIWA protocol Status: Acute (6) Chronic lymphocytic leukemia: Problem details: -noted. Stable leukocytosis Status: Acute (7) Pleural effusion: Problem details: -CT scan of chest on 02/08/2023 demonstrates: Indeterminate 5.8 centimeter focal right upper lobe heterogeneous lesion, possibly loculated pleural effusion. Additional moderate right lower lobe loculated pleural effusion with pleural enhancement. Questionable connection between these TWO lesions which could suggest complex empyema. Sterility cannot be assessed by imaging. Right apical Pancoast tumor not entirely excluded. Recommend correlation with prior imaging if available. Consider outpatient non emergent PET CT or thoracentesis for tissue sampling if medically necessary. -patient very anxious about incidental finding. Daughter would like to assist in setting up outpatient PET scan. Discussed follow up with PCP Status: Acute (8) Splenic cyst: Problem details: -CT scan of abdomen on 02/08/2023 demonstrates: Large 10.1 centimeter cystic lesion arising from the superior aspect of the spleen, possibly chronic hematoma in this patient with splenic hematoma seen on prior CT performed December 19, 2017. Some internal hyperdensity which could suggest intracystic bleeding. Otherwise, no acute intra-abdominal/pelvic abnormality including large volume hemoperitoneum. -outpatient follow up with PCP Status: Acute (9) Impaired cognition: Problem details: -he asks the same question multiple times. -unclear if this is acute or chronic -OT to assess cognition -1/2: Hard to assess if improving. Patient very focused on incidental pulmonary findings, repeating same questions regarding plan of care moving forward Status: Acute (10) T12 compression fracture: Problem details: -possible, based on CT scan findings from 02/08/2023 but without symptoms on the patient's part: Acute mild T12 compression fracture. Status: Acute (11) Hypokalemia: Problem details: -potassium 3.1 today. Replace with oral potassium b.i.d. times 6 doses, monitoring daily, adjusting as necessary Status: Acute (12) Anxiety: Problem details: -Patient reports using alcohol to cope with anxiety over son's current state of health. Told nurse he could give up drinking but requesting Ativan instead. Tells her his has some at home -no ativan recommended, except what is needed during CIWA scoring Status: Acute Time Spent With Patient Total time spent: Total time spent caring for the patient today was 45 minutes. This includes time spent for the visit reviewing the chart, time spent during the visit, time spent after the visit and documentation and planning in coordination of care. Subjective Date Seen: 02/09/23 Exam Const: Vital Signs, click to edit/add: Vital Signs - 24 hr 02/08/23 14:42 02/08/23 14:51 02/08/23 15:30 Temperature 97.9 F Pulse Rate 78 Pulse Rate [Pulse Oximeter] 77 Pulse Rate [orthos tatic lying Pulse Oximeter] Pulse Rate [orthos tatic sitting Puls e Oximeter] Pulse Rate [orthos tatic standing Pul se Oximeter] Respiratory Rate 16 16 Blood Pressure 129/84 122/74 Blood Pressure [Ri ght Arm] 147/84 H Blood Pressure [or thostatic lying Le ft Arm] Blood Pressure [or thostatic sitting Left Arm] Blood Pressure [or thostatic standing Left Arm] Pulse Oximetry 93 90 Oxygen Delivery Me thod Room Air Room Air 02/08/23 15:30 02/08/23 16:27 02/08/23 17:30 Temperature 97.9 F 97.9 F Pulse Rate Pulse Rate [Pulse Oximeter] 77 77 Pulse Rate [orthos tatic lying Pulse Oximeter] Pulse Rate [orthos tatic sitting Puls e Oximeter] Pulse Rate [orthos tatic standing Pul se Oximeter] Respiratory Rate 16 16 16 Blood Pressure Blood Pressure [Ri ght Arm] 147/84 H 147/84 H Blood Pressure [or thostatic lying Le ft Arm] Blood Pressure [or thostatic sitting Left Arm] Blood Pressure [or thostatic standing Left Arm] Pulse Oximetry 90 90 95 Oxygen Delivery Me thod Room Air Room Air Room Air 02/08/23 19:00 02/08/23 23:20 02/08/23 23:20 Temperature 97.8 F 97.6 F Pulse Rate Pulse Rate [Pulse Oximeter] 78 75 72 Pulse Rate [orthos tatic lying Pulse Oximeter] Pulse Rate [orthos tatic sitting Puls e Oximeter] Pulse Rate [orthos tatic standing Pul se Oximeter] Respiratory Rate 16 16 16 Blood Pressure Blood Pressure [Ri ght Arm] 150/89 H 148/79 H Blood Pressure [or thostatic lying Le ft Arm] Blood Pressure [or thostatic sitting Left Arm] Blood Pressure [or thostatic standing Left Arm] Pulse Oximetry 95 90 Oxygen Delivery Or thod Room Air Room Air 02/08/23 23:20 02/09/23 03:30 02/09/23 08:10 Temperature 98.3 F 98.1 F Pulse Rate Pulse Rate [Pulse Oximeter] 80 96 Pulse Rate [orthos tatic lying Pulse Oximeter] Pulse Rate [orthos tatic sitting Puls e Oximeter] Pulse Rate [orthos tatic standing Pul se Oximeter] Respiratory Rate 16 18 16 Blood Pressure Blood Pressure [Ri ght Arm] 152/90 H 163/95 H Blood Pressure [or thostatic lying Le ft Arm] Blood Pressure [or thostatic sitting Left Arm] Blood Pressure [or thostatic standing Left Arm] Pulse Oximetry 93 92 94 Oxygen Delivery Or thod Room Air Room Air Room Air 02/09/23 08:44 02/09/23 10:47 02/09/23 11:50 Temperature 98.1 F Pulse Rate Pulse Rate [Pulse Oximeter] 79 Pulse Rate [orthos tatic lying Pulse Oximeter] 100 Pulse Rate [orthos tatic sitting Puls e Oximeter] 105 H Pulse Rate [orthos tatic standing Pul se Oximeter] 115 H Respiratory Rate 16 Blood Pressure Blood Pressure [Ri ght Arm] 157/94 H Blood Pressure [or thostatic lying Le ft Arm] 163/95 H Blood Pressure [or thostatic sitting Left Arm] 165/104 H Blood Pressure [or thostatic standing Left Arm] 144/115 H Pulse Oximetry 96 94 Oxygen Delivery Me thod Room Air Room Air Labs Labs: Laboratory Results - last 24 hr 02/08/23 02/08/23 02/08/23 12:52 12:53 17:05 WBC RBC Hgb Hct MCV MCH MCHC Plt Count Sodium Potassium Chloride Carbon Dioxide Anion Gap BUN Creatinine Estimated Creat Clear Estimated GFR Glucose Calcium Phosphorus AST ALT 35 Total Creatine Kinase 94 Albumin Lab Acknowledgement Test Added Blood Type O Positive Antibody Screen NEGATIVE 02/08/23 02/09/23 19:48 06:20 WBC 17.64 H RBC 4.07 L Hgb 12.6 L Hct 35.4 L MCV 87 MCH 31 MCHC 36 Plt Count 284 Sodium 121 L* 122 L* Potassium 3.1 L Chloride 84 L Carbon Dioxide 25 Anion Gap 13 BUN 11 Creatinine 0.5 Estimated Creat Clear 52.78 Estimated GFR 102 Glucose 79 Calcium 8.2 L Phosphorus 3.3 AST 36 H ALT Total Creatine Kinase 129 Albumin 3.9 Lab Acknowledgement Blood Type Antibody Screen
[2023-02-09] MEDS: POTASSIUM CHLORIDE 10 MEQ CAPSULE ER 20 MEQ PO (17:12)
[2023-02-09] MEDS: THIAMINE 100 MG TABLET PO (17:14)
[2023-02-09 18:16] LABS: Alanine Aminotransferase* 28 U/L (4-50)
[2023-02-09] MEDS: LATANOPROST 0.005% OPHTH 1 DROP EYE-BOTH (20:09)
--- NOTE | 2023-02-09 23:00 | PC.NURSE ---
End of shift [id number] - Pt alert, oriented, cooperative, and soft spoken. Pt using urinal at bedside appropriately. Up to chair with standby assistance. Tolerating RA, regular diet, fluid restriction. VSS, afebrile. Pt denies SOB, nausea, dizziness. PT scored 1 on CIWA rating, no tremors noted, pt denies perspiration, sensory/tactile disruptions. Pt reported difficulty sleeping. During conversation about sleep, pt asked RN for lorazepam, specifically, to help with sleep because he has a lot on his mind. RN provided emotional support and education regarding patient's feelings, current stressors, and coping mechanisms. RN explained that melatonin was available as a sleep aid and pt agreed to try it. RN recommended pt follow up with regular doctor upon d/c for continued concerns regarding his sleep and stress. Pt observed to sleep, appears to be resting comfortably at end of shift.
[2023-02-10] VITALS (7 sets, daily range): BP systolic 126–152; BP diastolic 77–93; PULSE 63–76; RESP 16–20; TEMP 36.8–37.2; O2SAT 90–93
[2023-02-10] MEDS: 0.9 % SODIUM CHLORIDE 1000 ml 1,000 ML 125 ML IV ×3 (00:40→16:27)
[2023-02-10] MEDS: OMEPRAZOLE 20 MG CAPSULE DR PO (05:55)
--- NOTE | 2023-02-10 06:36 | PC.NURSE ---
SHIFT NOTE : Pt pleasant and cooperative, A&O, CIWA score 4 overnight, no Ativan needed per protocol. Pt denies pain, SOB, CP, and N/V. His only concern was inability to sleep, PRN Melatonin given without relief, updated for possible PRN sleeping med, no new orders received. Pt using urinal in bed, otherwise up SBA. VSS on RA.
[2023-02-10 07:21] LABS: Hematocrit 33.4 % (37.0-53.0); Hemoglobin* 11.5 gm/dL (13.5-17.5); Mean Corpuscular HGB Conc 34 gm/dL (32-36); Mean Corpuscular Hemoglobin 31 pg (26-34); Mean Corpuscular Volume 90 fL (80-100); Platelet Count* 228 K/uL (140-440); White Blood Count* 14.09 K/uL (4.50-11.00)
[2023-02-10 07:24] LABS: Slide Review Reflex No
[2023-02-10 07:40] LABS: Chloride* 90 mmol/L (96-114)
[2023-02-10 07:41] LABS: Albumin* 3.2 g/dL (3.3-5.0); Potassium* 3.3 mmol/L (3.6-5.1); Sodium* 126 mmol/L (135-149)
[2023-02-10 07:43] LABS: Anion Gap 6 mEq/L (7-15); Blood Urea Nitrogen* 10 mg/dL (7-30); Carbon Dioxide* 30 mmol/L (20-32); Creatinine* 0.5 mg/dL (0.5-1.5); Est. Creatinine Clearance* 53.71; Estimated Glomerular Filt Rate 102 ml/min
[2023-02-10 07:44] LABS: Aspartate Amino Transferase* 29 U/L (12-35); Calcium* 8.1 mg/dL (8.4-10.6); Glucose* 94 mg/dL (60-115); Phosphorus* 2.7 mg/dL (2.5-4.5)
[2023-02-10] MEDS: LOSARTAN POTASSIUM 50 MG TABLET PO (08:42)
[2023-02-10] MEDS: MULTIVITAMIN/MINERALS 1 TABLET 1 TAB PO (08:42)
[2023-02-10] MEDS: SODIUM CHLORIDE 1 GM TABLET PO ×3 (08:42→18:18)
[2023-02-10] MEDS: FOLIC ACID 1 MG TABLET PO (08:42)
[2023-02-10] MEDS: GABAPENTIN 300 MG CAPSULE PO ×2 (08:43→20:56)
[2023-02-10] MEDS: METOPROLOL SUCCINATE (XL) 100 MG TAB PO (08:43)
[2023-02-10] MEDS: POTASSIUM CHLORIDE 10 MEQ CAPSULE ER 20 MEQ PO ×2 (08:43→18:18)
[2023-02-10] MEDS: SODIUM CHLORIDE 0.9 % (FLUSH) 10 ML SYRINGE 5 ML IVF (08:44)
[2023-02-10] MEDS: timoloL maleate 0.5 % 1 DROP EYE-BOTH ×2 (08:44→20:56)
[2023-02-10] MEDS: THIAMINE 100 MG TABLET PO (16:27)
--- NOTE | 2023-02-10 16:44 | PM.IMPN1 ---
Progress Note: A&P Assessment and plan (1) Fall: Problem details: -while intoxicated, resulting in T12 fracture -PT/OT Status: Acute (2) Weakness: Problem details: -in setting of alcohol use and hyponatremia -physical therapy to assess and treat, walking with walker Status: Acute (3) Acute hyponatremia: Problem details: -most likely related to alcohol abuse -stop the chlorthalidone -decrease to 1800 mL fluid restriction, continue gentle IV hydration with normal saline -monitor serum sodium, improved to 126 from 122, appropriately so Status: Acute (4) Alcohol intoxication: Problem details: -blood alcohol 0.25 on admission. CIWA protocol, score 4 overnight Status: Acute (5) Alcohol abuse: Problem details: -he tells me he is drinking 3 shots of vodka daily, unbeknownst to his , and does not want his medical providers to tell his -monitor for alcohol withdrawal in cover with CIWA protocol -patient does admit to drinking 1 pint vodka prior to admission. States he has no plan to return to drinking Status: Acute (6) Chronic lymphocytic leukemia: Problem details: -noted. Stable leukocytosis Status: Acute (7) Pleural effusion: Problem details: -CT scan of chest on 02/08/2023 demonstrates: Indeterminate 5.8 centimeter focal right upper lobe heterogeneous lesion, possibly loculated pleural effusion. Additional moderate right lower lobe loculated pleural effusion with pleural enhancement. Questionable connection between these TWO lesions which could suggest complex empyema. Sterility cannot be assessed by imaging. Right apical Pancoast tumor not entirely excluded. Recommend correlation with prior imaging if available. Consider outpatient non emergent PET CT or thoracentesis for tissue sampling if medically necessary. -patient very anxious about incidental finding. Daughter would like to assist in setting up outpatient PET scan. Discussed follow up with PCP Status: Acute (8) Splenic cyst: Problem details: -CT scan of abdomen on 02/08/2023 demonstrates: Large 10.1 centimeter cystic lesion arising from the superior aspect of the spleen, possibly chronic hematoma in this patient with splenic hematoma seen on prior CT performed December 19, 2017. Some internal hyperdensity which could suggest intracystic bleeding. Otherwise, no acute intra-abdominal/pelvic abnormality including large volume hemoperitoneum. -outpatient follow up with PCP Status: Acute (9) Impaired cognition: Problem details: -he asks the same question multiple times. -unclear if this is acute or chronic -OT to assess cognition -/2: Hard to assess if improving. Patient very focused on incidental pulmonary findings, repeating same questions regarding plan of care moving forward Status: Acute (10) T12 compression fracture: Problem details: -possible, based on CT scan findings from 02/08/2023 but without symptoms on the patient's part: Acute mild T12 compression fracture. Status: Acute (11) Hypokalemia: Problem details: -potassium 3.3 today. Replace with oral potassium b.i.d. times 6 doses, monitoring daily, adjusting as necessary Status: Acute (12) Anxiety: Problem details: -Patient reports using alcohol to cope with anxiety over son's current state of health. Told nurse he could give up drinking but requesting Ativan instead. Tells her his has some at home -no ativan recommended, except what is needed during CIWA scoring -suggested outpatient managment but patient not currently interested Status: Acute Subjective Date Seen: 02/10/23 Interval history: Patient continues to feel better. Still a bit tired. Sodium slowly, appropriately, coming up. Ambulating. Tolerating orals. No nausea, vomiting. Tells me he no longer wants to drink. Isn't sure how to manage his current worries but is not interested in outpatient help. Exam Narrative: Exam Narrative: PHYSICAL EXAM General: Pleasant, conversant, NAD HEENT: Normocephalic, atraumatic, sclera white, EOMI, oral mucosa moist Cardiovascular: RRR, S1S2. No pitting edema Pulmonary: CTA bilaterally without rhonchi, rales, expiratory wheezes. No dyspnea Abdominal: Soft, nondistended, NTTP Neurological: Alert, answering questions appropriately, cranial nerves intact, no focal findings Extremities: No gross joint deformity or swelling. AROMI. Neurovascularly intact Skin: Warm, dry. Const: Vital Signs, click to edit/add: Vital Signs - 24 hr 02/09/23 19:00 02/09/23 19:00 02/09/23 23:00 Temperature 98.1 F 98.1 F 98.1 F Pulse Rate [Pulse Oximeter] 75 75 63 Respiratory Rate 16 16 16 Blood Pressure [Ri ght Arm] 145/94 H 145/94 H 131/93 H Pulse Oximetry 94 94 93 Oxygen Delivery Me thod Room Air Room Air Room Air 02/10/23 00:20 02/10/23 00:20 02/10/23 03:00 Temperature 98.3 F Pulse Rate [Pulse Oximeter] 63 69 Respiratory Rate 16 16 16 Blood Pressure [Ri ght Arm] 152/85 H Pulse Oximetry 93 90 Oxygen Delivery Me thod Room Air Room Air 02/10/23 03:00 02/10/23 08:06 02/10/23 08:06 Temperature 98.3 F 98.3 F Pulse Rate [Pulse Oximeter] 69 71 Respiratory Rate 16 20 Blood Pressure [Ri ght Arm] 152/85 H 144/81 H Pulse Oximetry 90 91 91 Oxygen Delivery Me thod Room Air Room Air Room Air 02/10/23 08:06 02/10/23 12:44 02/10/23 15:24 Temperature 99.0 F 98.7 F Pulse Rate [Pulse Oximeter] 76 70 Respiratory Rate 16 16 Blood Pressure [Ri ght Arm] 126/77 135/93 H Pulse Oximetry 91 90 92 Oxygen Delivery Me thod Room Air Room Air 02/10/23 15:24 Temperature Pulse Rate [Pulse Oximeter] Respiratory Rate Blood Pressure [Ri ght Arm] Pulse Oximetry 92 Oxygen Delivery Me thod Room Air Labs Labs: Laboratory Results - last 24 hr 02/09/23 02/10/23 17:30 05:50 WBC 14.09 H RBC 3.70 L Hgb 11.5 L Hct 33.4 L MCV 90 MCH 31 MCHC 34 Plt Count 228 Sodium 126 L Potassium 3.3 L Chloride 90 L Carbon Dioxide 30 Anion Gap 6 L BUN 10 Creatinine 0.5 Estimated Creat Clear 53.71 Estimated GFR 102 Glucose 94 Calcium 8.1 L Phosphorus 2.7 AST 29 ALT 28 Albumin 3.2 L
[2023-02-10 18:12] LABS: Alanine Aminotransferase* 25 U/L (4-50)
[2023-02-10] MEDS: LATANOPROST 0.005% OPHTH 1 DROP EYE-BOTH (20:56)
[2023-02-10] MEDS: MELATONIN 3 MG TABLET PO (21:02)
[2023-02-11] MEDS: 0.9 % SODIUM CHLORIDE 1000 ml 1,000 ML 125 ML IV (01:04)
[2023-02-11 03:00] VITALS: BP 171/108; PULSE 77; RESP 16; TEMP 36.9; O2SAT 91
--- NOTE | 2023-02-11 05:50 | PC.NURSE ---
Shift note: CIWA 0, pt is up with SBA, he is voiding. Pt denies pain, afebrile, no c/o of nausea, lightheadedness or dizziness.
[2023-02-11] MEDS: OMEPRAZOLE 20 MG CAPSULE DR PO (06:30)
[2023-02-11 06:35] LABS: Hematocrit 32.8 % (37.0-53.0); Mean Corpuscular HGB Conc 34 gm/dL (32-36); Mean Corpuscular Hemoglobin 31 pg (26-34); Mean Corpuscular Volume 93 fL (80-100); Platelet Count* 217 K/uL (140-440); Red Blood Count 3.54 m/uL (4.30-5.90); White Blood Count* 13.38 K/uL (4.50-11.00)
[2023-02-11 06:41] LABS: Slide Review Reflex No
[2023-02-11 06:50] LABS: Albumin* 3.3 g/dL (3.3-5.0); Chloride* 97 mmol/L (96-114); Sodium* 131 mmol/L (135-149)
[2023-02-11 06:51] LABS: Potassium* 3.9 mmol/L (3.6-5.1)
[2023-02-11 06:53] LABS: Anion Gap 5 mEq/L (7-15); Aspartate Amino Transferase* 24 U/L (12-35); Blood Urea Nitrogen* 10 mg/dL (7-30); Carbon Dioxide* 29 mmol/L (20-32); Creatinine* 0.4 mg/dL (0.5-1.5); Est. Creatinine Clearance* 55.45; Estimated Glomerular Filt Rate 110 ml/min; Glucose* 104 mg/dL (60-115); Phosphorus* 2.2 mg/dL (2.5-4.5)
[2023-02-11 06:54] LABS: Calcium* 8.2 mg/dL (8.4-10.6)
[2023-02-11 07:57] VITALS: RESP 16; O2SAT 92
[2023-02-11] MEDS: SODIUM CHLORIDE 1 GM TABLET PO (08:00)
[2023-02-11] MEDS: POTASSIUM CHLORIDE 10 MEQ CAPSULE ER 20 MEQ PO (08:00)
[2023-02-11] MEDS: MULTIVITAMIN/MINERALS 1 TABLET 1 TAB PO (08:51)
[2023-02-11] MEDS: GABAPENTIN 300 MG CAPSULE PO (08:51)
[2023-02-11] MEDS: LOSARTAN POTASSIUM 50 MG TABLET PO (08:51)
[2023-02-11] MEDS: METOPROLOL SUCCINATE (XL) 100 MG TAB PO (08:51)
[2023-02-11] MEDS: FOLIC ACID 1 MG TABLET PO (08:51)
[2023-02-11] MEDS: SODIUM CHLORIDE 0.9 % (FLUSH) 10 ML SYRINGE 5 ML IVF (08:52)
[2023-02-11] MEDS: timoloL maleate 0.5 % 1 DROP EYE-BOTH (08:52)
--- NOTE | 2023-02-11 16:30 | P.DS_ITS ---
DS: Providers Provider Date Seen: 02/11/23 Date of admission: 02/08/23 16:17 Primary care physician: Sebastien Pollock MD Admitting Clinician: Marisol Alvares MD Consults: 02/08/23 16:22 Consult to Nutrition [CONS] Routine Comment: Reason for consult:: Miscellaneous Comment: hyponatremia Consult to Physical Therapy [CONS] Routine Comment: Reason(s) for PT Consult:: Evaluate and Treat Any Restrictions?:: No Restrictions 02/08/23 16:26 Consult to Occupational Therapy [CONS] Routine Comment: Reason(s) for OT Consult:: Evaluate and Treat Any Restrictions?:: No Restrictions Comment: cognition... 02/08/23 18:33 Consult to Occupational Therapy [CONS] Routine Comment: Reason(s) for OT Consult:: Evaluate and Treat Any Restrictions?:: No Restrictions Consult to Physical Therapy [CONS] Routine Comment: Reason(s) for PT Consult:: Evaluate and Treat Any Restrictions?:: No Restrictions Attending Physician on discharge: Rhiannon Stearns [facility] Date of Discharge: 02/11/23 DS: Diagnosis Discharge Diagnosis (1) Fall: Status: Acute Problem details: -while intoxicated, resulting in T12 fracture. Symptomatic management (2) Weakness: Status: Acute Problem details: -in setting of alcohol use and hyponatremia Improved back to baseline with therapy. (3) Acute hyponatremia: Status: Acute Problem details: -most likely related to alcohol abuse Chlorthalidone was held during hospitalization to be resumed on discharge. Improved to 131 prior to discharge. Follow-up with PCP (4) Alcohol intoxication: Status: Acute Problem details: -blood alcohol 0.25 on admission Discussed abstinence with patient including consideration of other coping mechanisms for his current worries, pain. (5) Alcohol abuse: Status: Acute Problem details: -he tells me he is drinking 3 shots of vodka daily, unbeknownst to his , and does not want his medical providers to tell his -patient does admit to drinking 1 pint vodka prior to admission. States he has no plan to return to drinking (6) Chronic lymphocytic leukemia: Status: Acute Problem details: -noted. Stable leukocytosis (7) Pleural effusion: Status: Acute Problem details: -CT scan of chest on 02/08/2023 demonstrates: Indeterminate 5.8 centimeter focal right upper lobe heterogeneous lesion, possibly loculated pleural effusion. Additional moderate right lower lobe loculated pleural effusion with pleural enhancement. Questionable connection between these TWO lesions which could suggest complex empyema. Sterility cannot be assessed by imaging. Right apical Pancoast tumor not entirely excluded. Recommend correlation with prior imaging if available. Consider outpatient non emergent PET CT or thoracentesis for tissue sampling if medically necessary. -patient very anxious about incidental finding. Daughter would like to assist in setting up outpatient PET scan. Discussed follow up with PCP 0 patient follow-up with PCP for further diagnostic imaging and evaluation. (8) Splenic cyst: Status: Acute Problem details: -CT scan of abdomen on 02/08/2023 demonstrates: Large 10.1 centimeter cystic lesion arising from the superior aspect of the spleen, possibly chronic hematoma in this patient with splenic hematoma seen on prior CT performed December 19, 2017. Some internal hyperdensity which could suggest intracystic bleeding. Otherwise, no acute intra-abdominal/pelvic abnormality including large volume hemoperitoneum. -outpatient follow up with PCP for further workup (9) Impaired cognition: Status: Acute Problem details: Improving back towards baseline prior to discharge. I think he would benefit from neurocognitive testing however as there may be an underlying impairment. (10) T12 compression fracture: Status: Acute Problem details: Acute mild T12 compression fracture. Symptomatic cares (11) Hypokalemia: Status: Acute Problem details: Resolved following oral supplement (12) Anxiety: Status: Acute Problem details: -Patient reports using alcohol to cope with anxiety over son's current state of health. Told nurse he could give up drinking but requesting Ativan instead. Tells her his has some at home -suggested outpatient management but patient not currently interested DS: Summary Hospital Course Hospital Course: [age] year old male past medical history significant for hypertension, GERD, sciatic pain was admitted to the medical floor for further management during acute intoxication. Course of care and details as noted above. Remainder of chronic medical comorbidities were monitored and managed with home medications. Status at Discharge Overall status at discharge: patient is progressing back to baseline Time Spent with Patient Time attestation: Total time spent providing and/or coordinating discharge services: Time spent: Greater than 30 minutes Exam Narrative: Exam Narrative: PHYSICAL EXAM General: Pleasant, conversant, NAD Cardiovascular: RRR Pulmonary: No dyspnea Neurological: Alert, answering questions appropriately Skin: Warm, dry. Const: Vital Signs, click to edit/add: Vital Signs - 24 hr 02/10/23 19:00 02/10/23 23:00 02/10/23 23:00 Temperature Pulse Rate [Pulse Oximeter] 70 68 72 Respiratory Rate 16 16 16 Blood Pressure [Ri ght Arm] 135/93 H Pulse Oximetry 92 92 Oxygen Delivery Me thod Room Air Room Air 02/10/23 23:00 02/11/23 03:00 02/11/23 07:57 Temperature 98.4 F Pulse Rate [Pulse Oximeter] 77 Respiratory Rate 16 16 16 Blood Pressure [Ri ght Arm] 171/108 H Pulse Oximetry 90 91 92 Oxygen Delivery Me thod Room Air Room Air Room Air 02/11/23 07:57 Temperature Pulse Rate [Pulse Oximeter] Respiratory Rate Blood Pressure [Ri ght Arm] Pulse Oximetry 92 Oxygen Delivery Me thod DS: Data Data Completed and Pending Labs on day of discharge: Labs from last 24 hours 02/11/23 02/10/23 06:01 16:45 WBC 13.38 H RBC 3.54 L Hgb 11.0 L Hct 32.8 L MCV 93 MCH 31 MCHC 34 Plt Count 217 Sodium 131 L Potassium 3.9 Chloride 97 Carbon Dioxide 29 Anion Gap 5 L BUN 10 Creatinine 0.4 L Estimated Creat Clear 55.45 Estimated GFR 110 Glucose 104 Calcium 8.2 L Phosphorus 2.2 L AST 24 ALT 25 Albumin 3.3 Discharge Plan Discharge Disposition: Home, Self-Care Date of Admission: 02/08/23 16:17 Attending Provider on Discharge: Rhiannon Stearns Primary Care Provider: Sebastien Pollock Condition: Guarded Anticipated Discharge Date/Time: 02/11/23 12:10 Discharge Medications: New gabapentin 300 mg Capsule 300 mg PO BID Qty: 60 0RF Continued losartan 50 mg tablet 50 mg PO DAILY chlorthalidone 25 mg tablet 25 mg PO DAILY aspirin [Adult Low Dose Aspirin] 81 mg tablet,delayed release (DR/EC) 81 mg PO DAILY omeprazole 20 mg capsule,delayed release(DR/EC) 20 mg PO DAILY latanoprost 0.005 % drops 1 drp ophthalmic (eye) QPM lovastatin 40 mg tablet 20 mg PO HS metoprolol succinate 100 mg tablet extended release 24 hr 100 mg PO DAILY timolol maleate 0.5 % drops 1 drp ophthalmic (eye) BID Discharge Orders: Discharge Order (Routine); Ordered 02/11/23 Ordered By: Rhiannon Stearns Patient Education: Gabapentin (By mouth), Hyponatremia (DC), Fall Prevention (DC) Additional Instructions: Follow up with PCP on 03/01/2023 as previously scheduled. Follow up hyponatremia, pain - sciatica. Continue gabapentin. Continue a regular diet. We discussed abstaining from alcohol use. Recommend outpatient follow up for more effective coping mechanisms. Follow up for further imaging or work up of CT findings. Activity Level: Activity as Tolerated Discharge Diet: Regular Follow Up Appointments: Sebastien Pollock MD [Primary Care Provider] - (Previously scheduled on 03/01: Follow up for chronic pain - sciatica, pleural effusion with further studies, anxiety - coping mechanisms. F/u CT findings: Indeterminate 5.8 centimeter focal right upper lobe heterogeneous lesion, possibly loculated pleural effusion. Additional moderate right lower lobe loculated pleural effusion with pleural enhancement. Questionable connection between these TWO lesions which could suggest complex empyema. Sterility cannot be assessed by imaging. Right apical Pancoast tumor not entirely excluded. Recommend correlation with prior imaging if available. Consider outpatient non emergent PET CT or thoracentesis for tissue sampling if medically necessary) Forms: [facility] Inst[facility]
== END 2023-02-11 12:40 | disposition home or self-care (01) | DRG 897 ==
LOC: ED 14:00 → MEDSURG 15:00
PROVIDERS: Admitting Provider Internal Medicine; Emergency Provider Family Medicine; PCP Family Medicine; Visit Provider Family Medicine
DX: F10.129 Alcohol abuse with intoxication, unspecified (principal); E87.1 Hypo-osmolality and hyponatremia; S22.080A Wedge compression fracture of T11-T12 vertebra, initial encounter for closed fracture; J90 Pleural effusion, not elsewhere classified; C91.10 Chronic lymphocytic leukemia of B-cell type not having achieved remission; Z68.1 Body mass index [BMI] 19.9 or less, adult; Y90.8 Blood alcohol level of 240 mg/100 ml or more; F41.9 Anxiety disorder, unspecified; E87.6 Hypokalemia; M54.30 Sciatica, unspecified side; J98.4 Other disorders of lung; G31.84 Mild cognitive impairment of uncertain or unknown etiology; R53.1 Weakness; W10.9XXA Fall (on) (from) unspecified stairs and steps, initial encounter; Y92.018 Other place in single-family (private) house as the place of occurrence of the external cause; D73.4 Cyst of spleen; I10 Essential (primary) hypertension; K21.9 Gastro-esophageal reflux disease without esophagitis; E78.5 Hyperlipidemia, unspecified
CPT/HCPCS: 36415; 70450; 71260; 72125; 74177; 80048; 80069; 80076; 81001; 82077; 82550; 84295; 84450; 84460; 84484; 85025; 85027; 85610; 85730; 86850; 86900; 86901; 87631; 93005; 94761; 97110; 97116; 97161; 97165; 97530; 97535; 99284; 99285; 99291; A9153; A9270; G0390; J7030; Q9967

== ENCOUNTER 2024-06-01 11:26 | Emergency (ER) | payer MEDICARE, SELFPAY ==
--- OUTSIDE RECORDS SUMMARY | 2024-06-01 11:29 | XMS_ITS | Clinical Summary ---
Author Organization [facility] [facility] Address [facility] [place] [address] Care Team Providers Care Ordnance Keeper Name Role Phone Ashlie Andrew Butch Pack DO Primary Care Provid er Allergies No known active allergies Medications ascorbic acid, vitamin C, (VITAMIN C) 500 mg tablet Take 1 tablet by mouth once daily. 09/04/2009 Active cholecalciferol (VITAMIN D3) 1,000 unit tablet Take 1,000 Units by mouth once daily. 09/04/2009 Active Cinnamon Bark 500 mg capsule Take 1 capsule by mouth once daily. 12/07/2014 Active lovastatin (MEVACOR) 40 mg tablet TAKE ONE-HALF TABLET BY MOUTH EVERY DAY 05/26/2017 Active pyridoxine, vitamin B6, (VITAMIN B6) 100 mg tablet Take 1 tablet by mouth once daily. 09/04/2009 Active selenium 200 mcg tab Take 200 mcg by mouth once daily. 09/04/2009 Active Zinc Gluconate 30 mg tablet Take 30 mg by mouth once daily. 09/04/2009 Active chlorthalidone (HYGROTON) 25 mg tablet Take 25 mg by mouth once daily. 11/22/2018 8 Active metoprolol succinate (TOPROL XL) 100 mg Sustained-Relea se tablet Take 100 mg by mouth once daily. 02/14/2019 Active omeprazole (PRILOSEC) 20 mg Delayed-Release capsule Take 20 mg by mouth once daily before a meal. 10/31/2018 Active aspirin chewable 81 mg chewable tablet Take 81 mg by mouth once daily. Active sennosides-docu sate, 8.6-50 mg, (SENOKOT S) 8.6-50 mg tabletIndicatio ns:S/P left inguinal hernia repair Take 1 tablet by mouth 2 times daily if needed for Constipation . 20 tablet 09/22/2019 Active Active Problems Problem Noted Date Diagnosed Date Splenic hemorrhage 12/20/2017 CLL (chronic lymphocytic leukemia) 12/20/2017 HTN (hypertension) 12/20/2017 Impaired fasting glucose 12/20/2017 Leukocytosis Tachycardia Immunizations Immunization Administration Dates Next Due Influenza, High-dose Inactivated 11/20/2017,11/08,11/20/2015,12/07/2014 Social History Tobacco Use Types Packs/Day Years Used Date Smoking Tobacco: Former Smokeless Tobacco: Never Alcohol Use Standard Drinks/Week Comments Yes 0 (1 standard drink = 0.6 oz pur e alcohol) 1 beer 4x week Sex and Gender Information Value Date Recorded Sex Assigned at Not on file Legal Sex Male 6:53 AM [employer]ILD[employer] Gender Identity Not on file Sexual Orientation Not on file Obstetrics History Last Filed Vital Signs Vital Sign Reading Time Taken Comments Blood Pressure 140/80 09/22/2019 1:45 PM CDT Pulse 82 09/22/2019 1:45 PM CDT Temperature 36.8 C (98.2 F) 09/22/2019 1:45 PM CDT Respiratory Rate 16 09/22/2019 1:45 PM CDT Oxygen Saturation 98% 09/22/2019 1:45 PM CDT Inhaled Oxygen Concentration - - Weight 68.4 kg (150 lb 11.2 oz) 09/22/2019 8:26 AM CDT Height 188 cm (6' 2) 09/22/2019 8:28 AM CDT Body Mass Index 19.35 09/22/2019 8:26 AM CDT Plan of Treatment Health Maintenance Due Date Last Done Comments Tdap 1951 Depression screening for age 12+ 1954 BMI (ht and wt on same day) for age 18+ 01/02/1960 Pneumococcal series for age 50+ (1 of 2 - PCV) 1961 Zoster (shingles) series for age 50+ (1 of 2) 1961 Tetanus booster 1962 RSV vaccine for adults or (1 - 1-dose 75+ series) 2017 COVID-19 vaccine series ( season) 2023 10/03/2020, 04/22/2020, 03/29/2020 Influenza Vaccine (Season Ended) 2024 11/20/2017, 11/18/2016, 11/20/2015, Additional history exists Medical Devices Implanted Type Area Prison Classification Counselor Device Identifier Shelf Expiration Date Model / Serial / Lot Parietex Hydrophilic Anatomical Mesh Implanted:Qty: 1 on 09/22/2019 by Marlo Albert MD at [facility] General Surgery Implants Left: Inguinal COVIDIEN 04/07/2024 [id number] / / [id number] Insurance MEDICARE PART A HB ONLY [employer] MED[employer]ARE ADVANTAGE Advance Directives * Full Code (Latest Code Status on File) Date Activated Date Inactivated Comments 09/22/2019 7:59 AM 09/22/2019 4:21 PM * Full Code Date Activated Date Inactivated Comments 12/19/2017 6:37 PM 12/24/2017 4:23 PM * Full Code Date Activated Date Inactivated Comments 12/14/2017 10:58 AM 12/14/2017 4:00 PM Care Teams Ordnance Keeper Relationship Specialty Start Date End Date Andrew Dailey DO [address] [place] [id number] PCP - General Internal Medicine 12/08/17
[2024-06-01 11:36] VITALS: BP 157/86; PULSE 74; RESP 16; TEMP 37.2; O2SAT 94; BMI 20.7
--- NOTE | 2024-06-01 14:22 | ED_ITS ---
HPI - General Adult General Date Seen: 06/01/24 Chief complaint: Back Injury/Pain Stated complaint: back pain Time Seen by Provider: 06/01/24 14:03 History of Present Illness HPI narrative: A 84-year-old male presenting to the ER today for evaluation of low back pain. Patient reports that he fell last year and had a lumbar fracture. About 10 days ago his pain worsened. He has been trying to take Tylenol and Aleve but is not helping. 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 He notes that he had his fall last year with the resulting T12 fracture but mostly that fracture is healed. He does not really have long-term back problem. He does recall that a history of sciatica a year to ago but is not having any symptoms of pain or numbness radiating down his legs currently. He notes for about the past 10 days he has developed a new pain located more low in his back, just above the sacrum in the midline. This does not really radiate from there. Bowel and bladder function have been normal. He has not had any fevers. No weight loss. He does have a history of CLL, 1st diagnosed in 1994, but is not on active treatment for that. No other known cancer. Per medical record he was seen in the ER on 02/08/[address] head of his head and C-spine were normal. CT of his chest/abdomen/pelvis showed an acute mild T12 compression fracture. Also a large 10 cm cystic lesion on the superior spleen (possibly a chronic hematoma). Also showed a possible complex right upper lobe lesion (possibly loculated pleural effusion) and a right lower lobe loculated pleural effusion). Related Data Home Medications ?Medication ?Instructions ?Recorded ?Confirmed aspirin 81 mg tablet,delayed 81 mg PO DAILY 11/24/22 06/01/24 release (Adult Low Dose Aspirin) chlorthalidone 25 mg tablet 25 mg PO DAILY 11/24/22 06/01/24 latanoprost 0.005 % eye drops 1 drp ophthalmic (eye) QPM 11/24/22 06/01/24 losartan 50 mg tablet 50 mg PO DAILY 11/24/22 06/01/24 lovastatin 40 mg tablet 20 mg PO HS 11/24/22 06/01/24 omeprazole 20 mg capsule,delayed 20 mg PO DAILY 11/24/22 06/01/24 release metoprolol succinate 100 mg 100 mg PO DAILY 02/08/23 06/01/24 tablet,extended release 24 hr timolol maleate 0.5 % eye drops 1 drp ophthalmic (eye) BID 02/08/23 06/01/24 Previous Rx's ?Medication ?Instructions ?Recorded gabapentin 300 mg capsule 300 mg PO BID #60 caps 02/11/23 furosemide 20 mg tablet 20 mg PO DAILY #3 tabs 06/01/24 hydrocodone 5 mg-acetaminophen 325 1 tab PO Q6H PRN pain #10 tabs 06/01/24 mg tablet Allergies Allergy/AdvReac Type Severity Reaction Status Date / Time No Known Drug Allergies Allergy Verified 06/01/24 11:41 [facility] Medical History (Updated 06/01/24 @ 17:15 by Jordon Schaeffer MD) Anxiety ?F41.9 - Anxiety disorder, unspecified (ICD-10) Alcohol abuse ?F10.10 - Alcohol abuse, uncomplicated (ICD-10) Fall ?W19.XXXA - Unspecified fall, initial encounter (ICD-10) Splenic cyst ?D73.4 - Cyst of spleen (ICD-10) Chronic lymphocytic leukemia ?C91.10 - Chronic lymphocytic leukemia of B-cell type not having achieved remission (ICD-10) Hyperlipidemia ?E78.5 - Hyperlipidemia, unspecified (ICD-10) GERD (gastroesophageal reflux disease) ?K21.9 - Gastro-esophageal reflux disease without esophagitis (ICD-10) HTN (hypertension) ?I10 - Essential (primary) hypertension (ICD-10) Cataract ?H26.9 - Unspecified cataract (ICD-10) Spleen hematoma ?S36.029A - Unspecified contusion of spleen, initial encounter (ICD-10) Ganglion cyst ?M67.40 - Ganglion, unspecified site (ICD-10) Surgical History History of cataract extraction with lens replacement History of hernia repair ?Z98.890 - Other specified postprocedural states (ICD-10) ?Z87.19 - Personal history of other diseases of the digestive system (ICD-10) Social History What is your current living situation?: I presently have a place to live Problems where you live: no known problems Problems where you live details: NA In the past 12 months, utilities in danger of being shut off: no In past 12 months, lack of transportation kept you from medical appts, meetings, work, or getting things needed for daily living: no In the past 12 mos, have been you worried that your food would run out before you had money to buy more?: never true In the past 12 mos, the food you bought just didn't last and you didn't have money to buy more?: never true Highest level of school completed/degree received: high school graduate Smoking Status: Never smoker Do you use any of these nicotine containing products: None Second hand tobacco smoke exposure: No How many standard drinks containing alcohol do you have on a typical day: 1 or 2 How often do you have six or more drinks on one occasion: Never AUDIT-C Alcohol total score: 0 Non-prescribed substance use: denies use Caffeine: Yes How often does anyone, including family, friends and others, physically hurt you : never How often does anyone, including family, friends and others, insult or talk down to you: never How often does anyone, including family, friends and others, threaten you with harm: never How often does anyone, including family, friends and others, scream or curse at you: never service: No Exam Narrative: Exam Narrative: Constitutional: Appears well-developed and well-nourished. Alert. Conversant. Very polite . Non toxic. HENT: Head: Atraumatic. Nose: Nose normal. Mouth/Throat: Oral mucosa is clear and moist. no trismus. Pharynx normal. Tonsils symmetric. Eyes: Conjunctivae normal. EOM normal. Pupils equal, round, and reactive to light. No scleral icterus. Neck: Normal range of motion. Neck supple. No tracheal deviation present. Cardiovascular: Normal rate, regular rhythm. No gallop. No friction rub. No murmur heard. Pulmonary/Chest: Effort normal. No stridor. No respiratory distress. No wheezes. No rales. No rhonchi . Abdominal: Soft. Bowel sounds normal. No distension. No mass. No tenderness. No rebound. No guarding. Musculoskeletal: RUE: Normal range of motion. No tenderness. No deformity LUE: Normal range of motion. No tenderness. No deformity RLE: Normal range of motion. No edema. No tenderness. No deformity LLE: Normal range of motion. No edema. No tenderness. No deformity Neurological: Alert and oriented to person, place, and time. Normal strength. CN II-VII intact. No sensory deficit. GCS eye subscore is 4. GCS verbal subscore is 5. GCS motor subscore is 6. Normal coordination Sensory: Normal light touch sensation bilaterally on the anteromedial thigh (L3), medial malleolus (L4), dorsal first web space (L5), lateral malleolus (S1). Strength: 5/5 strength hip flexors (L3) on the rig ht and left 5/5 strength in the quadriceps (L4) on t he right and left 5/5 strength in the tibialis anterior 5/5 strength in the EHL (L5) on the righ t and left 5/5 strength in the gastrocnemius (S1) o n the right and left 5/5 strength in the hamstring on the rig ht and left Negative straight leg raise bilaterally. Skin: Skin is warm and dry. No rash noted. No pallor. Normal capillary refill. Psychiatric: Normal mood. Normal affect. Const: Vital Signs, click to edit/add: Vital Signs - 24 hr 06/01/24 11:36 06/01/24 15:27 06/01/24 15:29 Temperature 98.9 F Pulse Rate 71 Pulse Rate [Pulse Oximeter] 74 74 Respiratory Rate 16 16 Blood Pressure 149/81 H Blood Pressure [Ri ght Upper Arm] 157/86 H 148/87 H Pulse Oximetry 94 96 95 Oxygen Delivery Me thod Room Air Room Air Course Vital Signs Vital signs: Initial Vital Signs Temperature 98.9 F 06/01/24 11:36 Temperature Source Temporal Artery Scan 06/01/24 11:36 Pulse Rate 74 06/01/24 11:36 Respiratory Rate 16 06/01/24 11:36 Blood Pressure 157/86 H 06/01/24 11:36 Blood Pressure Mean 109 H 06/01/24 11:36 Blood Pressure Position Sitting 06/01/24 11:36 Pulse Oximetry 94 06/01/24 11:36 Oxygen Delivery Method Room Air 06/01/24 11:36 Vital Signs Temperature 98.9 F 06/01/24 11:36 Pulse Rate 74 06/01/24 11:36 Respiratory Rate 16 06/01/24 11:36 Blood Pressure 157/86 H 06/01/24 11:36 Pulse Oximetry 94 06/01/24 11:36 Oxygen Delivery Method Room Air 06/01/24 11:36 Temperature 98.9 F 06/01/24 11:36 Pulse Rate 71 06/01/24 15:29 Respiratory Rate 16 06/01/24 15:27 Blood Pressure 149/81 H 06/01/24 15:29 Pulse Oximetry 95 06/01/24 15:29 Oxygen Delivery Method Room Air 06/01/24 15:27 Medical Decision Making MDM Narrative Medical decision making narrative: This patient presented with back pain. Broad differential considered. Although he has no recent trauma, he does have a history of compression fractures. Given age and history of CLL, we did feel that imaging was indicated. Unfortunately I do not have access to get an emergent MRI today. I did order CT scan of his lumbar spine as well as abdomen and bony pelvis. CT scans do show evidence for the previous T12 fracture and also a new lumbar for fracture which I think would correlate anatomically with his symptoms. Fortunately he is neurologically inta ct. No evidence for spinal cord injury, lumbar radiculopathy. The patient has not had a fever, saddle/perineal anesthesia, bilateral foot numbness, or bowel or bladder dysfunction. There is no clinical evidence of cauda equina syndrome, discitis, spinal/epidural space hematoma or epidural abscess. At this point I do not think he needs to be admitted for MR imaging. He is eager to be discharged home. He declines pain meds here in the ER. 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 Will provide him with a prescription for [place]. We reviewed opiate precautions. The patient will be discharged with pain medications to use as directed. Ice or heat to the back and stretching exercises. No heavy lifting, bending or twisting. Return if increasing pain, numbness, weakness, or bowel or bladder dysfunction. Incidentally he notes a history of bilateral lower extremity edema for which he wears compression stockings chronically. He has gotten worse over the past few days any asks for short prescription for diuretic. I felt it is reasonable to provide that so will provide a prescription for Lasix 20 mg daily for 3 days. However, patient advised he should follow up with PCP for recheck within 2-3 days to make sure the edema is getting better and for potential further workup with labs to look at kidney function. The patient was advised to schedule follow-up with their primary doctor within 2-3 days to re-assess symptoms. Return precautions reviewed and questions answered. Imaging Data CT scan - abdomen: Attestation: I have reviewed the pertinent imaging results. Radiologist's impression: IMPRESSION: 1. T12 and L4 compression fractures as above. These are new since 02/08/2023. There is some mild retropulsion of the posterior cortex at L4 without central canal stenosis. 2. Very large stool burden. 3. Several other chronic findings detailed above. Discharge Plan Discharge Clinical Impression: Closed compression fracture of L4 vertebra, Edema, peripheral Patient Disposition: Home, Self-Care Condition: Stable Instructions: Vertebral Compression Fracture (ED), Leg Edema (ED) Additional Instructions: As we discussed, please follow-up with your regular doctor for a checkup by Wednesday. If you have worsening symptoms such as uncontrolled pain, new numbness or weakness or pain radiating down her legs, fever, worsening swelling in her legs or trouble breathing, please come back to the ER right away Use the prescription pain killer, [place], as needed for your back pain. Be careful because [place] causes dizziness, drowsiness, constipation and can be addictive. Use the water pill (furosemide) once daily in the morning to help reduce the swelling in your legs. Prescriptions: New hydrocodone-acetaminophen 5-325 mg tablet 1 tab PO Q6H PRN (Reason: pain) Qty: 10 0RF furosemide 20 mg tablet 20 mg PO DAILY Qty: 3 0RF No Action losartan 50 mg tablet 50 mg PO DAILY chlorthalidone 25 mg tablet 25 mg PO DAILY aspirin [Adult Low Dose Aspirin] 81 mg tablet,delayed release (DR/EC) 81 mg PO DAILY omeprazole 20 mg capsule,delayed release(DR/EC) 20 mg PO DAILY latanoprost 0.005 % drops 1 drp ophthalmic (eye) QPM lovastatin 40 mg tablet 20 mg PO HS metoprolol succinate 100 mg tablet extended release 24 hr 100 mg PO DAILY timolol maleate 0.5 % drops 1 drp ophthalmic (eye) BID gabapentin 300 mg Capsule 300 mg PO BID Qty: 60 0RF Follow Up/Referrals: Sebastien Pollock MD [Primary Care Provider] - Stand Alone Forms: [employer] Instructions
--- NOTE | 2024-06-01 14:34 | CRLHL7_ITS ---
For Patients: As a result of the Century Cures Act, medical imaging exams and procedure reports are released immediately into your electronic medical record. You may view this report before your referring provider. If you have questions, please contact your health care provider. INDICATION: Lower back pain, posterior pelvic and sacral pain. COMPARISON: Same day CT of the abdomen and pelvis and prior CT of the abdomen and pelvis 02/08/2023 TECHNIQUE: CT of the lumbar spine without contrast. Multiplanar axial, coronal, and sagittal reformats were reconstructed. FINDINGS: There are 5 [id number] lumbar type vertebral bodies. There is a T12 compression fracture with almost complete loss of the vertebral body height. The posterior cortex is intact without retropulsion. There is an L4 vertebral body fracture. There is 4 millimeters retropulsion of the superior endplate. There is effacement of the thecal sac but not any severe central canal narrowing. Normal alignment. Multilevel disc degenerative change. Multilevel facet arthritis. No severe osseous neural foraminal narrowing. No severe central canal stenosis. No focally destructive bone lesions. Bone mineralization appears low. Consider correlation with DEXA if not previously performed. Please see same day CT of the abdomen and pelvis for soft tissue details. IMPRESSION: T12 and L4 compression fractures as above. Please note that all CT scans at this facility use dose modulation, iterative reconstruction, and/or weight-based dosing when appropriate to reduce radiation dose to as low as reasonably achievable. Dictated by Mimi Bullard MD @ 06/01/2024 3:46:17 PM (Electronically Signed)
--- NOTE | 2024-06-01 14:34 | CRLHL7_ITS ---
For Patients: As a result of the 21st Century Cures Act, medical imaging exams and procedure reports are released immediately into your electronic medical record. You may view this report before your referring provider. If you have questions, please contact your health care provider. INDICATION: Posterior pelvic and sacral pain. COMPARISON: 02/08/2023, 12/19/2017 TECHNIQUE: CT of the abdomen and pelvis without intravenous contrast. Multiplanar axial, coronal, and sagittal reformats were reconstructed. Contrast: None. FINDINGS: Lung bases: Chronic loculated right pleural effusion appears about the same as the previous exam. Chronic scarring and distortion in the right lung is also unchanged. Mild left basilar atelectasis or scarring is similar. Liver: Normal noncontrast liver. Gallbladder and bile ducts: Normal gallbladder. Bile ducts not well evaluated. Pancreas: Limited assessment of the pancreas on noncontrast exam. Spleen: There is a large thick walled irregular splenic collection that is unchanged. Internal hyperdensity/calcification. Measures 10 x 8.5 x 8.5 centimeters. Embolization coils at the splenic hilum. Adrenal glands: No right adrenal mass. Left adrenal gland not well seen. Kidneys: Normal renal size and position. Right lower pole renal cyst. No calculi. No urinary tract dilation. Urinary bladder: Partially filled. Pelvis: No cyst or mass. Vessels: Atherosclerosis. Bowel: No dilated small bowel. The appendix is not discretely seen. Large hyperdense inspissated stool burden. Lymph nodes: There are some mildly enlarged inguinal lymph nodes that are similar to previous exams. Peritoneum: No ascites. No free air. Abdominal wall: No hernia. No abdominal wall collection. Bones: T12 compression fracture with vertebra plana. This is new since 02/08/2023. Posterior cortex is not significantly retropulsed. L4 superior endplate compression fracture with significant endplate disruption and mild retropulsion of the posterior cortex is also new since 02/08/2023. Multilevel disc and facet degeneration. Bilateral hip and sacroiliac osteoarthritis. No focal worrisome bone lesions. IMPRESSION: 1. T12 and L4 compression fractures as above. These are new since 02/08/2023. There is some mild retropulsion of the posterior cortex at L4 without central canal stenosis. 2. Very large stool burden. 3. Several other chronic findings detailed above. Please note that all CT scans at this facility use dose modulation, iterative reconstruction, and/or weight-based dosing when appropriate to reduce radiation dose to as low as reasonably achievable. Dictated by Mimi Bullard MD @ 06/01/2024 3:40:51 PM (Electronically Signed)
[2024-06-01 15:27] VITALS: BP 148/87; PULSE 74; RESP 16; O2SAT 96
[2024-06-01 15:29] VITALS: BP 149/81; PULSE 71; O2SAT 95
--- OUTSIDE RECORDS SUMMARY | 2024-06-01 16:20 | XMS_ITS | Clinical Summary ---
Author Organization [facility] Address [facility] [place] [address] Care Team Providers Care Chief Of Surgery Name Role Phone Ashlie Andrew Butch Pack [...] on file Legal Sex Male 6:53 AM [employer] Gender Identity Not on file Sexual Orientation [...] history exists Medical Devices Implanted Type Area Coin Box Inspector Device Identifier Shelf Expiration Date Model / Serial / Lot Parietex Hydrophilic Anatomical Mesh Implanted:Qty: 1 on 09/22/2019 by Marlo Albert MD at [facility] General Surgery Implants Left: Inguinal COVIDIEN 04/07/2024 [id number] / / [id number] Insurance MEDICARE PART A HB ONLY [employer] MED[employer]ARE ADVANTAGE Advance Directives * Full Code (Latest Code Status on File) Date Activated Date Inactivated Comments 09/22/2019 7:59 AM 09/22/2019 4:21 PM * Full Code Date Activated Date Inactivated Comments 12/19/2017 6:37 PM 12/24/2017 4:23 PM * Full Code Date Activated Date Inactivated Comments 12/14/2017 10:58 AM 12/14/2017 4:00 PM Care Teams Chief Of Surgery Relationship Specialty Start Date End Date Andrew Dailey DO [address] [place] [id number] PCP - General Internal Medicine 12/08/17
== END 2024-06-01 17:30 | disposition home or self-care (01) ==
PROVIDERS: Emergency Provider Emergency Medicine; PCP Family Medicine
DX: S32.049A Unspecified fracture of fourth lumbar vertebra, initial encounter for closed fracture (principal); R60.9 Edema, unspecified; W19.XXXA Unspecified fall, initial encounter
CPT/HCPCS: 72131; 74176; 99283; 99284

== ENCOUNTER 2024-07-12 14:23 | Outpatient (CLI) | payer MEDICARE, SELFPAY | END 2024-07-12 14:24 | disposition home or self-care (01) | LOC: AMB 07-13 12:55 | PROVIDERS: PCP Family Medicine; Visit Provider Family Medicine | DX: R53.1 Weakness (principal); R10.9 Unspecified abdominal pain; M54.9 Dorsalgia, unspecified | CPT/HCPCS: A0425; A0427 ==

== ENCOUNTER 2024-07-12 14:48 | Inpatient (IN) | payer MEDICARE, SELFPAY ==
[2024-07-12] VITALS (52 sets, daily range): BP systolic 77–119; BP diastolic 46–94; PULSE 69–120; RESP 5–25; TEMP 36.3–36.4; O2SAT 81–94; BMI 19.9
--- OUTSIDE RECORDS SUMMARY | 2024-07-12 14:50 | XMS_ITS | Clinical Summary ---
Author Organization [facility] Address [facility] [place] [address] Care Team Providers Care Asphalt Engineer Name Role Phone Andrew Dailey DO Primary Care Provid er Allergies No known active allergies Medications ascorbic acid, vitamin C, (VITAMIN C) 500 mg tablet Take 1 tablet by mouth once daily. 0 Active cholecalciferol (VITAMIN D3) 1,000 unit tablet Take 1,000 Units by mouth once daily. 0 Active Cinnamon Bark 500 mg capsule Take 1 capsule by mouth once daily. 5 Active lovastatin (MEVACOR) 40 mg tablet TAKE ONE-HALF TABLET BY MOUTH EVERY DAY 8 Active pyridoxine, vitamin B6, (VITAMIN B6) 100 mg tablet Take 1 tablet by mouth once daily. 0 Active selenium 200 mcg tab Take 200 mcg by mouth once daily. 0 Active Zinc Gluconate 30 mg tablet Take 30 mg by mouth once daily. 0 Active chlorthalidone (HYGROTON) 25 mg tablet Take 25 mg by mouth once daily. 9 01/03/20 28 Active metoprolol succinate (TOPROL XL) 100 mg Sustained-Relea se tablet Take 100 mg by mouth once daily. 0 Active omeprazole (PRILOSEC) 20 mg Delayed-Release capsule Take 20 mg by mouth once daily before a meal. 9 Active aspirin chewable 81 mg chewable tablet Take 81 mg by mouth once daily. Active sennosides-docu sate, 8.6-50 mg, (SENOKOT S) 8.6-50 mg tabletIndicatio ns:S/P left inguinal hernia repair Take 1 tablet by mouth 2 times daily if needed for Constipation . 20 tablet 0 Active mirtazapine 7.5 mg tablet Take 7.5 mg by mouth at bedtime. Active losartan 50 mg tablet Take 50 mg by mouth once daily. Active amLODIPine 10 mg tablet Take 10 mg by mouth once daily. Active torsemide 20 mg tabletIndicatio ns:Bilateral lower extremity edema Take 1 Tablet (20 mg) by mouth once daily. 30 Tablet 5 Active celecoxib 200 mg capsuleIndicati ons:Severe back pain Take 1 Capsule (200 mg) by mouth once daily with a meal. 90 Capsule 5 Active cyclobenzaprine 10 mg tabletIndicatio ns:Severe back pain Take 1 Tablet (10 mg) by mouth at bedtime if needed for Muscle Spasm. 30 Tablet 5 Active furosemide 20 mg tablet Take 1 Tablet by mouth once daily. 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 Thrombocythemia 01/30/2020 Other specified postprocedural states 09/29/2019 High serum ferritin 09/12/2019 Other diseases of spleen 12/20/2017 HTN (hypertension) 12/20/2017 Impaired fasting glucose 12/20/2017 Asymptomatic varicose veins of right lower extre mity 03/28/2014 Dyspepsia 05/06/2013 Overview (07/04/2024): Dyspepsia and other specified disorders of function of stomach Hypertensive chronic kidney disease with stage 1 through stage 4 chronic kidney disease, or unspecified chronic kidney disease 05/06/2013 Overview (07/04/2024): Benign Essential Hypertension Essential hypertension, benign Anxiety 02/24/2011 Erectile dysfunction 02/25/2010 Hyperglycemia 04/13/2008 Hypercholesterolemia 08/13/2006 Overview (07/04/2024): Pure hypercholesterolemia 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 Overview (07/04/2024): 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 Tachycardia Encounters Date Type Department Care Team Description 07/04/2024 2:05 PM CDT Office Visit [facility] [address] [place] [address] Nestor Schwab, Back Pain (Was seen at [facility] and they did CT scan - wondering about pain medication ); Leg Swelling (Has been having bilateral leg swelling - was on 3 days of lasix ) 07/04/2024 Travel from Last 3 Months Immunizations Immunization Administration Dates Next Due INFLUENZA, IIV3 PF (AGE >= 6 MO) 020,11/06/2008,12/15/2007,12/13 Influenza A (H1N1), Inactiva katie (Age 6-35 Mos) 01/25/2009 Influenza Virus, Unspecified 11/14/2013, 11/22/2012,11/17/2011,11/23,12/03/2000,12/09/1998,11/21/1997 ,12/06/1995 Influenza, High-dose Inactivated 024,11/20/2017,11/18/2016,11/19,12/07/2014 Influenza, High-dose Quadriv alent Inactivated 12/15/2022,11/26/2021,11/25/2020 Influenza, IIV3 (Age >=3 years) 11/25/19 11,11/29/2009,11/26/2005,11/18,11/16/2003,12/13/2002,11/23/2001 ,12/03/2000 Influenza, IIV4 11/10/2012 Influenza, Inactivated AIIV4 (Age 65+ Years) Preserv Free 11/24/2019 Influenza, Inactivated IIV3 (Age 65+ Years) Preserv Free 11/18/2018 Influenza, split (incl. giovani fied surface antigen) 11/26/2005,11/18/2004,11/16/2003,12/13 Pneumococcal Conj 20-valent (Prevnar 20) 01/31/2024 Pneumococcal Poly,23-Valent (Pneumovax) 11/20/2015,04/03/2002 Pneumococcal conj 13-Valent (Prevnar 13) 04/05/2014 RSV, Recombinant ADJ Reconst ituted (Arexvy 120MCG/0.5mL) 01/31/2024 TD, UNSPECIFIED 02/21/2008 Td, Preservative Free (age >= 7 Years) 9 Tdap 10/03/2014 Zoster (Shingrix-RZV, recombinant) 07/11/2021, Zoster (Zostavax-ZVL, live) 08/17/2007 Social History Tobacco Use Types Packs/Day Years Used Date Smoking Tobacco: Former Smokeless Tobacco: Never Tobacco Cessation:Counseling Given: Yes Alcohol Use Standard Drinks/Week Comments Yes 0 (1 standard drink = 0.6 oz pur e alcohol) 1 beer 4x week Sex and Gender Information Value Date Recorded Sex Assigned at Not on file 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 Gender Identity Not on file Sexual Orientation Not on file Obstetrics History Last Filed Vital Signs Vital Sign Reading Time Taken Comments Blood Pressure 146/87 07/04/2024 2:25 PM CDT Pulse 74 07/04/2024 2:25 PM CDT Temperature 36.8 C (98.2 F) 09/22/2019 1:45 PM CDT Respiratory Rate 16 09/22/2019 1:45 PM CDT Oxygen Saturation 97% 07/04/2024 2:25 PM CDT Inhaled Oxygen Concentration - - Weight 66.7 kg (147 lb 1.6 oz) 07/04/2024 2:25 P M CDT Height 188 cm (6' 2) 09/22/2019 8:28 AM CDT Body Mass Index 18.89 09/22/2019 8:28 AM CDT Plan of Treatment Health Maintenance Due Date Last Done Comments Depression screening for age 12+ 1954 BMI (ht and wt on same day) for age 18+ 01/02/1960 Medicare Wellness for age 65+ 2007 COVID-19 vaccine series (10 - Pfizer risk season) 2024 01/04/2024, 07/07/2023, 12/15/2022, Additional history exists Tetanus booster 10/03/2024 10/03/2014, 02/08, 02/21/2008 Tdap Completed 10/03/2014 Zoster (shingles) series for age 50+ Completed 07/11/2021, 03/05/2021, 08/17/2007 Influenza Vaccine Completed 01/04/2024, , 11/20/2019, Additional history exists Pneumococcal series for age 50+ Completed 01/31/2024, 11/20/2015, 04/05/2014, Additional history exists RSV vaccine for adults or Completed 01/31/2024 Hepatitis B series for 19+ Aged Out N o longer eligible based on patient's age to complete this topic Medical Devices Implanted Type Area Athletic Equipment Custodian Device Identifier Shelf Expiration Date Model / Serial / Lot Parietex Hydrophilic Anatomical Mesh Implanted:Qty: 1 on 09/22/2019 by Marlo Albert MD at [facility] General Surgery Implants Left: Inguinal COVIDIEN 04/07/2024 [id number] / / [id number] Insurance MEDICARE PART A HB ONLY [employer] MEDICARE ADVANTAGE Advance Directives * Full Code (Latest Code Status on File) Date Activated Date Inactivated Comments 09/22/2019 7:59 AM 09/22/2019 4:21 PM * Full Code Date Activated Date Inactivated Comments 12/19/2017 6:37 PM 12/24/2017 4:23 PM * Full Code Date Activated Date Inactivated Comments 12/14/2017 10:58 AM 12/14/2017 4:00 PM Care Teams Asphalt Engineer Relationship Specialty Start Date End Date Andrew Dailey DO [address] [place] [phone] PCP - General Internal Medicine 12/08/17
--- OUTSIDE RECORDS SUMMARY | 2024-07-12 14:50 | XMS_ITS | Encounter Summary ---
Author Organization [facility] Address [address] [place] [address] Care Team Providers Care Plaque Maker Name Role Phone Andrew Dailey D.O. Primary Care Provider [phone]- [phone] Reason for Visit * Reason Comments Med Refill [facility] Encounter Details Date Type Department Care Team (Late st Contact Info) Description 06/15/2024 Refill Department of Internal Medicine in [place], [place] [address] [phone] Lizzie Gonzalez APRN, C.N.P., D.N.P., M.S.N. [address] [phone] Med Refill ([facility] ) Social History Tobacco Use Types Packs/Day Years Used Date Smoking Tobacco: Former Cigarettes Q uit: 12/23/1978 Passive Smoke Exposure: Past Smokeless Tobacco: Never Alcohol Use Standard Drinks/Week Comments Yes 1 (1 standard drink = 0.6 oz pur e alcohol) occasional beer [facility] Utilities Answer Date Recorded In the past 12 months has e electric, gas, oil, or water company threatened to shut off services in your home? No 04/23/2023 Humiliation, Afraid, Rape, and Kick questionnair e Answer Date Recorded Within the last year, have y ou been afraid of your partner or ex-partner? No 04/23/2023 Within the last year, have y ou been humiliated or emotionally abused in other ways by your partner or ex-partner? No Within the last year, have y ou been kicked, hit, slapped, or otherwise physically hurt by your partner or ex-partner? No 04/23/2023 Within the last year, have y ou been raped or forced to have any kind of sexual activity by your partner or ex-partner? No 04/23/2023 PHQ-2 Answer Date Recorded PHQ-2 Score 0 04/23/2023 Exercise Vital Sign Answer Date Recorde d On average, how many days pe r week do you engage in moderate to strenuous exercise (like a brisk walk)? 2 days 04/23/2023 On average, how many minutes do you engage in exercise at this level? 20 min 04/23/2023 Hunger Vital Sign Answer Date Recorded Within the past 12 months, y ou worried that your food would run out before you got the money to buy more. Never true 04/23/19 Within the past 12 months, t he food you bought just didn't last and you didn't have money to get more. Never true 04/23/2023 PRAPARE - Transportation Answer Date Re corded In the past 12 months, has l ack of transportation kept you from medical appointments or from getting medications? No 04/08 In the past 12 months, has l ack of transportation kept you from meetings, work, or from getting things needed for daily living? No 04/23/2023 Nutrition Answer Date Recorded On average, how many serving s of fruits and vegetables do you eat per day (serving size is equal to 1 cup or approximately the size of a tennis ball)? 3-5 04/23/2023 Dental Answer Date Recorded Dental: Regular Dentist Yes 04/23/19 Employment Answer Date Recorded Employment status Retired 04/23/2023 Housing Stability Answer Date Recorded What is your living situation today? 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 - 06/20/2024 4:15 PM CDT SUBJECTIVE CHIEF COMPLAINT / REASON FOR CALL Questions/Recommendations INFORMATION DISCUSSED Relayed providers recommendations as noted below: we typically try to wean narcotic type medications the farther out from the injury. Given that it has been a couple of weeks since the initial scan and probably longer since the injury I think we should be able to get him off of the narcotics. If he does not think he can do this then he should be coming in for another appointment to further evaluate. PLAN Disposition/Recommendation: N/A Information: patient/caller able to repeat back in their own words Caller agreeable to plan of care: yes The following references were used: provider Dr Dailey * Telephone Encounter - Xin Swann LKennedyP.N. - 06/19/2024 1:05 PM CDT SUBJECTIVE CHIEF COMPLAINT / REASON FOR CALL Med Refill ([facility] ) Information Discussed Patient contacted and stated my back is so painful especially in the AM when getting out of bed. It's devastating to get up. The pain is 6/10 all the time but with movement it will get worse. They did a CT at the [facility] and said it was something with a vertebra or something like that. 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 I keep my legs up but right now I am not using the compression socks because they are to hard to get on. I don't think the pain pill that was given to me is strong enough and I really think maybe I need something a little stronger or a different pain pill PLAN Disposition/Recommendation: notified provider and awaiting recommendations Information/Education: patient/caller able to teach back Caller agreeable to plan of care: yes The following references were used: other per patient * Telephone Encounter - Adam Nicole - 06/19/2024 11:56 AM CDT Needs Review: Med Refill Team is unable to forward request to provider. Controlled Substance - Rx prescribed for acute pain Primary Provider: Andrew Dailey D.O. Requested Prescriptions Pending Prescriptions Disp Refills HYDROcodone-acetaminophen ([facility]) 5-325 mg per tablet [Pharmacy Med Name: HYDROcodone-AcetaminophenOral Tablet 5-325 MG] 10 tablet 0 Sig: TAKE ONE TABLET BY MOUTH EVERY SIX HOURS NEEDED FOR PAIN documented in this encounter Plan of Treatment Not on file documented as of this encounter Visit Diagnoses Not on filedocumented in this encounter Additional Health Concerns Assessment Noted Time PHQ-9 Depression Total Score: 0 09/02/19 12 9:09 AM CDT documented as of this encounter Care Teams Plaque Maker Relationship Specialty Start Date End Date Andrew Dailey D.O. [address] [phone] PCP - General 07/23/16 documented as of this encounter
--- OUTSIDE RECORDS SUMMARY | 2024-07-12 14:50 | XMS_ITS | Encounter Summary ---
Author Organization [facility] Address [address] [place] [address] Care Team Providers Care Yard Caller Name Role Phone Andrew Dailey D.O. Primary Care Provider [phone]- [phone] Encounter Details Date Type Department Care Team (Late st Contact Info) Description 05/19/2024 Clinical Communication Department of Internal Medicine in [place], [place] [address] [phone] Andrew Dailey D.O. [address] [place] [phone] Social History Tobacco Use Types Packs/Day Years Used Date Smoking Tobacco: Former Cigarettes Q uit: 12/23/1978 Passive Smoke Exposure: Past Smokeless Tobacco: Never Alcohol Use Standard Drinks/Week Comments Yes 1 (1 standard drink = 0.6 oz pur e alcohol) occasional beer [facility] Utilities Answer Date Recorded In the past 12 months has [place], oil, or water [employer] threatened to shut off services in your [...] your living situation today? 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 [address] [place] [phone] PCP - General 07/23/16 documented as of this encounter
--- OUTSIDE RECORDS SUMMARY | 2024-07-12 14:50 | XMS_ITS | Clinical Summary ---
Author Organization [facility] Address [address] [place] [address] Care Team Providers Care Hand Alterations Tailor Name Role Phone Andrew Dailey D.O. Primary Care Provider [phone]- [phone] Source Comments Patient records contain information from all sites at [facility]. For routine questions regarding patient records, call [phone] during business hours, M-F 8:00 AM - 5:00 PM Central Time. Record requests for emergency care only can be directed to [phone] at any time.[facility] Allergies No known active allergies Medications blood sugar diagnostic strips 1 test. Checks occasionally 3 Active aspirin 81 mg chewable tablet Chew 81 mg daily. Active latanoprost (XALATAN) 0.005 % ophthalmic solution Administer 1 drop into both eyes at bedtime. 3 Active ibuprofen (ADVIL,MOTRIN) 200 mg tablet Take 400 mg by mouth every 6 (six) hours as needed for pain. Active timolol (TIMOPTIC) 0.5 % ophthalmic solution INSTILL ONE DROP INTO EACH EYE TWICE DAILY* 3 Active mirtazapine (Remeron) 7.5 mg tablet take one tablet by mouth one time daily at bedtime 90 tablet 3 4 Active omeprazole (PriLOSEC) [address] capsule take one capsule by mouth one time daily 90 capsule 3 4 Active metoprolol succinate (Toprol XL) 100 mg 24 hr tablet TAKE ONE TABLET BY MOUTH ONE TIME DAILY 90 tablet 3 4 Active losartan (Cozaar) 50 mg tablet TAKE ONE TABLET BY MOUTH ONE TIME DAILY 90 tablet 3 5 Active amLODIPine (Norvasc) 10 mg tablet TAKE ONE TABLET BY MOUTH ONE TIME DAILY 90 tablet 3 5 Active lovastatin (Mevacor) 40 mg tablet TAKE HALF TABLET BY MOUTH DAILY 45 tablet 3 5 Active HYDROcodone-stacia taminophen ([place]) 5-325 mg per tabletIndicatio ns:Acute Pain Exception Take 1 tablet by mouth every 6 (six) hours as needed for pain Indication: Acute Pain Exception. 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 Disease, Or Unspecified Chronic Kidney Disease 05/06/2013 Overview (06/30/2016): Benign Essential Hypertension Essential hypertension, benign Dyspepsia 05/06/2013 Overview (07/14/2019): Dyspepsia and other specified disorders of function of stomach Anxiety 02/24/2011 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 Hyperglycemia 04/13/2008 Hypercholesterolemia 08/13/2006 Overview (07/14/2019): Pure hypercholesterolemia 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 Overview (07/14/2019): 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 Med Refill ([place] ) 06/05/2024 Refill Department of Internal Medicine in [place], [place] [address] [place] [address], [place] [address] Andrew Dailey D.O. Med Refill 05/29/2024 Clinical Communication Department of Internal Medicine in [place], [place] [address] [place] [address], [place] [address] Andrew Dailey D.O. Urgent Appt Request 05/19/2024 Clinical Communication Department of Internal Medicine in [address] [place] [address] Andrew Dailey D.O. 05/17/2024 Orders Only [facility] Andrew Dailey D.O. 05/10/2024 Refill Department of Internal Medicine in [place], [place] [address] [place] [address], [place] [address] Andrew Dailey D.O. Med Refill from Last 3 Months Immunizations Immunization Administration Dates Next Due HZV (ZOSTAVAX) 08/17/2007 Influenza Split 11/26/2005, 5,11/16/2003,2002 Influenza TIV (IM) 11/18/2018 Influenza high dose QV(65 ye ars or older) (PF) 12/15/2022,11/26/2021,11/25/2020 Influenza, Seasonal, Injectable 11/25/19 11,11/29/2009,11/26/2005,2004,11/16/2003,12/13/2002,11/23/2001,1 Influenza, Unspecified 11/14/2013,2012,11/17/2011,2001,12/03/2000,12/09/1998,11/21/1997,1 PCV13 04/05/2014 PPSV23 11/20/2015,04/03/2002 RZV (SHINGRIX) 07/11/2021,03/05/2021 SARS-COV-2 (COVID-19) - PFIZ ER (Discontinued)(12 years or older) 10/03/2020,04/22/2020,03/29/2020 Td (Adult), adsorbed 02/21/2008,08/03/2001,03/01 Td, (Adult) Unspecified 02/21/2008 Tdap 10/03/2014 influenza trivalent high dos e (HD)(PF) 11/20/2017,11/18/2016,11/20/2015,2014 influenza trivalent vaccine (6 months and older)(PF) 11/20/2019,11/06/2008,12/15/2007,2006 influenza vaccine quad (FLUZONE/FLUARIX) (6 months and older)(PF) 11/24/2019,11/20/2019,11/18/2018,2017,11/14/2013,11/22/2012,11/24/2010,1 ,01/25/2009,11/06/2008, 008,12/13/2006,11/26/2005,11/18/2004,,12/13/2002,11/23/2001,12/04/19 01 Family History Medical History Relation Name Comments Hypertension Brother Curt Prostate cancer Brother Curt Leukemia Mother minimal details known Hypertension Son David Anesthesia problems Neg Hx Relation Name Status Comments Brother Curt Father Mother Son David Social History Tobacco Use Types Packs/Day Years Used Date Smoking Tobacco: Former Cigarettes Q uit: 12/23/1978 Passive Smoke Exposure: Past Smokeless Tobacco: Never Tobacco Cessation:Counseling Given: Not Answered Alcohol Use Standard Drinks/Week Comments Yes 1 (1 standard drink = 0.6 oz pur e alcohol) occasional beer [employer] Utilities Answer Date Recorded In the past 12 months has [employer], oil, or water [employer] threatened to shut off services in your [...] your living situation today? 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 on file Not on file Last Filed Vital Signs Vital Sign Reading Time Taken Comments Blood Pressure 131/77 09/03/2023 3:56 PM CDT Pulse 74 09/03/2023 3:56 PM CDT Temperature 36.7 C (98.1 F) 09/03/2023 3:56 PM CDT Respiratory Rate 16 04/23/2023 1:57 PM CDT Oxygen Saturation 94% 09/03/2023 3:56 PM CDT Inhaled Oxygen Concentration - - Weight 69.6 kg (153 lb 7 oz) 09/03/2023 3:56 PM CDT Height 179.8 cm (5' 10.79) 08/03/2023 3:43 PM C DT Body Mass Index 21.53 08/03/2023 3:43 PM CDT Plan of Treatment Health Maintenance Due Date Last Done Comments Depression Screening (Annual PHQ-2) 02/09/2024 Fall Risk Screen (Annual) 02/09/2024 Visit: Medicare Annual Wellness 04/23/2024 04/23/2023 COVID-19 Vaccine ( season) 2024 01/04/2024, 07/07/2023, 12/15/2022, Additional history exists Visit: Chronic Disease, age 18+ 08/02/2024 08/03/2023 Office Visit for Blood Pressure Check / Re-check 09/02/2024 09/03/2023 DTaP,Tdap,and Td Vaccines (2 - Td or Tdap) 10/03/2024 10/03/2014, 02/21/2008, 02/21/2008, Additional history exists Creatinine Level (Kidney Function Test) 03/01/2025 03/01/2024, 09/01/2023, 04/08/2023, Additional history exists Fasting Glucose for Diabetes Screening 03/01/2025 03/01/2024, 09/01/2023, 03/25/2023, Additional history exists Potassium Level 03/01/2025 03/01/2024, 08/09, 04/08/2023, Additional history exists Sodium Level 03/01/2025 03/01/2024, 08/09, 04/08/2023, Additional history exists Colonoscopy Discontinued 12/13/2017, 10/24/2007 Colorectal Cancer Surveillance Discontinued Zoster Vaccines Completed 07/11/2021, 02/09, 08/17/2007 Influenza Vaccine Completed 01/04/2024, , 11/26/2021, Additional history exists Pneumococcal vaccine (50+ years) Completed 01/31/2024, 11/20/2015, 04/05/2014, Additional history exists RSV vaccine - (32-36 weeks) or 60+ years Completed 01/31/2024 CT Colonography Discontinued Cologuard Discontinued HPV Vaccines Aged Out No longer eligi ble based on patient's age to complete this topic IPV Vaccines Aged Out No longer eligi ble based on patient's age to complete this topic Procedures Procedure Name Priority Date/Time Associated Diagnosis Comments BASIC METABOLIC PANEL, S/P Routine 03/01/2024 12:12 PM CAN HANDLER Hypertensive Chronic Kidney Disease With Stage 1 Through Stage 4 Chronic Kidney Disease, Or Unspecified Chronic Kidney Disease 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 (HCC) from Last 3 Months or Most Recently Relevant to Health Maintenance Results * (ABNORMAL) Basic Metabolic Panel (03/01/2024 12:12 PM CAN HANDLER) Potassium, P 4.6 3.6 - 5.2 mmol/L 03/01/2024 4:10 PM CAN HANDLER AUST Sodium, P 140 135 - 145 mmol/L 03/01/2024 4:10 PM CAN HANDLER AUST Chloride, P 101 98 - 107 mmol/L 03/01/2024 4:10 PM CAN HANDLER AUST Bicarbonate, P 30(H) 22 - 29 mmol/L 03/01/2024 4:10 PM CAN HANDLER AUST Anion Gap, P 9 7 - 15 03/01/2024 4:10 PM CAN HANDLER AUST BUN (Blood Urea Nitrogen), P 15 8 - 24 mg/dL 03/01/2024 4:10 PM CAN HANDLER AUST Creatinine 0.80 0.74 - 1.35 mg/dL 03/01/2024 4:10 PM CAN HANDLER AUST Estimated GFR (eGFR) 88 >=60 mL/min/BSA 03/01/2024 4:10 PM CAN HANDLER AUST Comment: Estimated GFR calculated using the 2020 CKD_EPI creatinine equation. Calcium, Total, P 9.4 8.8 - 10.2 mg/dL 03/01/2024 4:10 PM CAN HANDLER AUST Glucose, P 105 70 - 140 mg/dL 03/01/2024 4:10 PM CAN HANDLER AUST Blood (Blood, Venous) 03/01/2024 12:12 PM CAN HANDLER 03/01/2024 12:15 PM CAN HANDLER us Andrew Dailey D.O. LAB BLOOD ADD-ON Final Res ult [facility] [address] [place] [address], [facility] [address] [place] [address] from Last 3 Months or Most Recently Relevant to Health Maintenance Insurance [facility] Advance Directives For more information, please contact: [phone] Documents on File Type Date Recorded Patient Mowing Machine Operator Expl anation Advance Directives 09/07/2011 12:00 AM Leg acy document. See document viewer. Care Teams Hand Alterations Tailor Relationship Specialty Start Date End Date Andrew Dailey D.O. [address] [place] [address] [phone] (work) [facility] - General 07/23/16
--- OUTSIDE RECORDS SUMMARY | 2024-07-12 14:50 | XMS_ITS | Encounter Summary ---
Author Organization [facility] Address [address] [place] [address] Care Team Providers Care Metallurgical Engineer Name Role Phone Andrew Dailey D.O. Primary Care Provider [phone]- [phone] Reason for Visit * Reason Onset Date Comments Urgent Appt Request 05/29/2024 Encounter Details Date Type Department Care Team (Latest Contact Info) Description 05/29/2024 Clinical Communication Department of Internal Medicine in [place], [place] [address] [address] Andrew Dailey D.O. [address] [address] Urgent Appt Request Social History Tobacco Use Types Packs/Day Years Used Date Smoking Tobacco: Former Cigarettes Q uit: 12/23/1978 Passive Smoke Exposure: Past Smokeless Tobacco: Never Alcohol Use Standard Drinks/Week Comments Yes 1 (1 standard drink = 0.6 oz pur e alcohol) occasional beer [employer] Utilities Answer Date Recorded In the past 12 months has [employer], gas, oil, or water [employer] threatened to shut off services in your [...] your living situation today? 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 - 05/31/2024 2:53 PM CDT SUBJECTIVE CHIEF COMPLAINT / REASON FOR CALL Questions PLAN The following information was provided: Per Summer, pt was going to go to ER tomorrow possibly. She is going to try to get him to go see a provider in [place]. If anything further is needed from us she will let us know. Information/Education: patient/caller able to teach back The following references were used: nursing clinical judgement documented in this encounter Plan of Treatment Not on file documented as of this encounter Visit Diagnoses Not on filedocumented in this encounter Additional Health Concerns Assessment Noted Time PHQ-9 Depression Total Score: 0 09/02/19 12 9:09 AM CDT documented as of this encounter Care Teams Metallurgical Engineer Relationship Specialty Start Date End Date Andrew Dailey D.O. [address] [address] PCP - General 07/23/16 documented as of this encounter
--- OUTSIDE RECORDS SUMMARY | 2024-07-12 14:50 | XMS_ITS | Encounter Summary ---
Author Organization [facility] Address [address] [place] [address] Care Team Providers Care Hall Porter Name Role Phone Andrew Dailey D.O. Primary Care Provider +1- [phone] Reason for Visit * Reason Comments Med Refill Encounter Details Date Type Department Care Team (Late st Contact Info) Description 06/05/2024 Refill Department of Internal Medicine in [place], [place] [address] [address] Andrew Dailey D.O. [address], [place] [address] Med Refill Social History Tobacco Use Types Packs/Day Years Used Date Smoking Tobacco: Former Cigarettes Q uit: 12/23/1978 Passive Smoke Exposure: Past Smokeless Tobacco: Never Alcohol Use Standard Drinks/Week Comments Yes 1 (1 standard drink = 0.6 oz pur e alcohol) occasional beer [facility] Utilities Answer Date Recorded In the past 12 months has [employer], gas, oil, or water [employer] threatened to shut off services in your [...] your living situation today? I have a [facility] place to live 04/23/2023 Sex and Gender Information Value Date Recorded Sex Assigned at Not on file Legal Sex Male 5:17 PM HOP PICKER Gender Identity Not on file Sexual Orientation [...] documented as of this encounter Care Teams Hall Porter Relationship Specialty Start Date End Date Andrew Dailey D.O. [address] [place] [address] PCP - General 07/23/16 documented as of this encounter
--- NOTE | 2024-07-12 15:16 | CRLHL7_ITS ---
For Patients: As a result of the Century Cures Act, medical imaging exams and procedure reports are released immediately into your electronic medical record. You may view this report before your referring provider. If you have questions, please contact your health care provider. INDICATION: ABD PAIN, WEAKNESS, FALL. TECHNIQUE: CT abdomen and pelvis acquired with 66 cc Isovue 370 IV contrast. COMPARISON: June 01, 2024. FINDINGS: Lower chest: Loculated right-sided pleural effusion, stable from prior. Liver: Punctate enhancement in the right hepatic lobe (2/30), may be flash filling hemangioma. Otherwise, no suspicious hepatic lesions identified. Gallbladder and bile ducts: Unremarkable. No stones or inflammation. No biliary dilatation. Pancreas: Unremarkable. No mass or inflammation. Spleen: Stable thick-walled splenic collection, unchanged. Otherwise, spleen is unremarkable. Splenic embolization coils are noted. Adrenal glands: Unremarkable. No nodules. Kidneys: Unremarkable. No suspicious masses, stones, or hydronephrosis. GI tract: Large stool burden. No bowel obstruction. Appendix is not visualized. Vasculature: Abdominal aorta is normal in caliber. Mesenteric arteries are patent. Lymph nodes: No lymphadenopathy. Peritoneum/Abdominal Wall: Postsurgical changes in the left anterior abdominal wall in the region of the pelvis. No sign of mass or infiltration. No free air or significant free fluid. Pelvis: Unremarkable. Bones: Stable near complete compression of the T12 vertebral body. L4 vertebral body demonstrates increased compression compared to the prior exam from June 01 now with mid vertebral height of approximately 1 centimeter, previously 1.6 centimeters. Diffuse demineralization of the visualized bones. Minimal increased retropulsion of the fracture fragment into the spinal canal. IMPRESSION: 1. Interval increase in height loss at the L4 vertebral body now measuring approximately 1 centimeter, previously 1.6 centimeter. Stable T12 compression fracture. 2. Redemonstrated elevated stool burden. 3. Other stable chronic findings. Please note that all CT scans at this facility use dose modulation, iterative reconstruction, and/or weight-based dosing when appropriate to reduce radiation dose to as low as reasonably achievable. Dictated by Hilda Vail MD @ 07/12/2024 4:57:56 PM (Electronically Signed)
--- NOTE | 2024-07-12 15:16 | CRLHL7_ITS ---
For Patients: As a result of the Cures Act, medical imaging exams and procedure reports are released immediately into your electronic medical record. You may view this report before your referring provider. If you have questions, please contact your health care provider. INDICATION: : Weakness COMPARISON: CT chest/abdomen/pelvis on February 08, 2023 TECHNIQUE: One view(s) of the chest FINDINGS/IMPRESSION: Cardiomegaly. Medial right lung apex opacity and right mid to lower lung zone opacity, favored to represent loculated pleural effusion as seen on prior CT exam. The left lung is clear. No pneumothorax. No displaced fractures. Dictated by Bo Nicole MD @ 07/12/2024 4:56:13 PM (Electronically Signed)
--- NOTE | 2024-07-12 15:20 | CRLHL7_ITS ---
For Patients: As a result of the Cures Act, medical imaging exams and procedure reports are released immediately into your electronic medical record. You may view this report before your referring provider. If you have questions, please contact your health care provider. INDICATION: Weakness. Fall. TECHNIQUE: Lumbar spine two views. COMPARISON: CT lumbar spine 06/01/2024. FINDINGS: Bone demineralization. Compression fractures of the T12 and L4 vertebra with associated loss of vertebral body height has not significantly changed. No radiographic evidence of acute lumbar spine fracture. Multilevel degenerative changes, as before. Coil embolization material in the left abdomen, as before. Surgical clips in the left pelvis. IMPRESSION: T12 and L4 compression fractures appear unchanged. Dictated by Miguel Zhong MD @ 07/12/2024 4:57:19 PM (Electronically Signed)
--- NOTE | 2024-07-12 15:20 | ED.GENADULT ---
HPI - General Adult General Chief complaint: Weakness <Bharat Hinton MD - Last Filed: 07/15/24 15:53> Stated complaint: Weakness <Bharat Hinton MD - Last Filed: 07/15/24 15:53> Time Seen by Provider: 07/12/24 15:11 <Bharat Hinton MD - Last Filed: 07/15/24 15:53> History of Present Illness HPI narrative: [age] male lives with his independently, he was brought in by ambulance today for generalized weakness. Apparently fell recently had T12 compression fracture noted on his chart as well as a history of pleural effusion. He notices the last couple of days he has been little more weak and today has been more weak than normal. Generally diffuse weakness not specific. He has had no dysuria no cough. No rigors or chills. He has had no chest pain. No headache. No stroke-like symptoms. Reviewing his chart he has had a history of T12 and L4 compression fracture. He has also had CLL and a splenic cyst. He is not exactly sure why he is more she weak than normal. His heart rate is slightly elevated and appears irregular, his EKG by my interpretation independently shows atrial fib with ventricular response of 107 beats per minute no obvious marked ischemic changes. He has some swelling of his ankles bilaterally by his report. No dysuria or hematuria. He has a history of alcohol abuse. <Bharat Hinton MD - Last Filed: 07/15/24 15:53> Patient here with increased weakness over the past couple days and feeling short of breath. Recent fall with back pain a couple of days ago. 84 year old white male lives with his independently, he was brought in by ambulance today for generalized weakness. Apparently fell recently had T12 compression fracture noted on his chart as well as a history of pleural effusion. He notices the last couple of days he has been little more weak and today has been more weak than normal. Generally diffuse weakness not specific. He has had no dysuria no cough. No rigors or chills. He has had no chest pain. No headache. No stroke-like symptoms. Reviewing his chart he has had a history of T12 and L4 compression fracture. He has also had CLL and a splenic cyst. He is not exactly sure why he is more she weak than normal. His heart rate is slightly elevated and appears irregular, his EKG by my interpretation independently shows atrial fib with ventricular response of 107 beats per minute no obvious marked ischemic changes. He has some swelling of his ankles bilaterally by his report. No dysuria or hematuria. He has a history of alcohol abuse. <Cameron Marshall MD - Last Filed: 07/14/24 13:13> Related Data Home medications: Home Medications ?Medication ?Instructions ?Recorded ?Confirmed aspirin 81 mg tablet,delayed 81 mg PO DAILY 11/24/22 07/12/24 release (Adult Low Dose Aspirin) latanoprost 0.005 % eye drops 1 drp ophthalmic (eye) QPM 11/24/22 07/12/24 losartan 50 mg tablet 50 mg PO DAILY 11/24/22 07/12/24 lovastatin 40 mg tablet 20 mg PO HS 11/24/22 07/12/24 omeprazole 20 mg capsule,delayed 20 mg PO DAILY 11/24/22 07/12/24 release cyclobenzaprine 10 mg tablet 10 mg PO QPM PRN muscle spasm 07/12/24 07/12/24 dorzolamide-timolol (PF) 2 %-0.5 % 1 drp ophthalmic (eye) BID 07/12/24 07/12/24 eye drops in a dropperette mirtazapine 7.5 mg tablet 7.5 mg PO QPM 07/12/24 07/12/24 torsemide 20 mg tablet 20 mg PO DAILY 07/12/24 07/12/24 Previous Rx's ?Medication ?Instructions ?Recorded hydrocodone 5 mg-acetaminophen 325 1 tab PO Q6H PRN pain #10 tabs 06/01/24 mg tablet escitalopram oxalate 10 mg tablet 10 mg PO DAILY #30 tabs 07/15/24 metoprolol succinate 100 mg 50 mg (1/2 x 100 mg) PO DAILY #30 07/15/24 tablet,extended release 24 hr tabs <Bharat Hinton MD - Last Filed: 07/15/24 15:53> Allergies/adverse reactions: Allergies Allergy/AdvReac Type Severity Reaction Status Date / Time No Known Drug Allergies Allergy Verified 07/12/24 18:14 <Bharat Hinton MD - Last Filed: 07/15/24 15:53> Review of Systems Status of ROS: Reports: 6 or more systems reviewed and unremarkable except as noted in History and below <Bharat Hinton MD - Last Filed: 07/15/24 15:53> [facility] Medical History: Medical History (Updated 07/14/24 @ 14:29 by Tulio aHwkins MD) Discharge planning issues ?Z75.8 - Other problems related to medical facilities and other health care (ICD-10) Anemia ?D64.9 - Anemia, unspecified (ICD-10) Lower extremity edema ?R60.0 - Localized edema (ICD-10) Tricuspid regurgitation ?I07.1 - Rheumatic tricuspid insufficiency (ICD-10) Pulmonary hypertension ?I27.20 - Pulmonary hypertension, unspecified (ICD-10) Non-STEMI (non-ST elevated myocardial infarction) ?I21.4 - Non-ST elevation (NSTEMI) myocardial infarction (ICD-10) Anxiety ?F41.9 - Anxiety disorder, unspecified (ICD-10) Chronic lymphocytic leukemia ?C91.10 - Chronic lymphocytic leukemia of B-cell type not having achieved remission (ICD-10) HTN (hypertension) ?I10 - Essential (primary) hypertension (ICD-10) Alcohol abuse ?F10.10 - Alcohol abuse, uncomplicated (ICD-10) Fall ?W19.XXXA - Unspecified fall, initial encounter (ICD-10) Splenic cyst ?D73.4 - Cyst of spleen (ICD-10) Hyperlipidemia ?E78.5 - Hyperlipidemia, unspecified (ICD-10) GERD (gastroesophageal reflux disease) ?K21.9 - Gastro-esophageal reflux disease without esophagitis (ICD-10) Cataract ?H26.9 - Unspecified cataract (ICD-10) Spleen hematoma ?S36.029A - Unspecified contusion of spleen, initial encounter (ICD-10) Ganglion cyst ?M67.40 - Ganglion, unspecified site (ICD-10) <Bharat Hinton MD - Last Filed: 07/15/24 15:53> Surgical History: Surgical History History of cataract extraction with lens replacement History of hernia repair ?Z98.890 - Other specified postprocedural states (ICD-10) ?Z87.19 - Personal history of other diseases of the digestive system (ICD-10) <Bharat Hinton MD - Last Filed: 07/15/24 15:53> Social History: Social History What is your current living situation?: I presently have a place to live Problems where you live: no known problems Problems where you live details: na In the past 12 months, utilities in danger of being shut off: no In past 12 months, lack of transportation kept you from medical appts, meetings, work, or getting things needed for daily living: no In the past 12 mos, have been you worried that your food would run out before you had money to buy more?: never true In the past 12 mos, the food you bought just didn't last and you didn't have money to buy more?: never true Highest level of school completed/degree received: high school graduate Smoking Status: Never smoker Do you use any of these nicotine containing products: None Second hand tobacco smoke exposure: No How many standard drinks containing alcohol do you have on a typical day: 1 or 2 How often do you have six or more drinks on one occasion: Never AUDIT-C Alcohol total score: 0 Non-prescribed substance use: opiods/painkillers Non-prescribed substance use details: Pt admitted to [facility] he was taking wifes hospice meds Caffeine: Yes How often does anyone, including family, friends and others, physically hurt you: never How often does anyone, including family, friends and others, insult or talk down to you: never How often does anyone, including family, friends and others, threaten you with harm: never How often does anyone, including family, friends and others, scream or curse at you: never service: No <Bharat Hinton MD - Last Filed: 07/15/24 15:53> Exam Narrative: Exam Narrative: Objective: The patient is a frail cachectic male, he is alert orient x3, complains of some ringing in his ears but otherwise complains of some intermittent abdominal pain. He has no scleral icterus Neck is supple Chest diminished air exchange bilaterally at the bases Heart rate and rhythm regular 2/6 systolic murmur occasional ectopic beat noted abdomen benign soft nontender no masses does complain of a little bit a right-sided lateral abdominal tenderness with palpation but there is no palpable mass, negative CVA tenderness Extremities show it 1+ edema of his ankles bilaterally he has stasis dermatitic changes in his shins Neurologic is grossly nonfocal in upper extremity <Bharat Hinton MD - Last Filed: 07/15/24 15:53> Const: Vital Signs, click to edit/add: Vital Signs - 24 hr 07/12/24 14:48 07/12/24 15:00 07/12/24 15:11 Temperature 97.5 F L Pulse Rate 103 H Pulse Rate [Pulse Oximeter] 106 H Respiratory Rate 22 Blood Pressure Blood Pressure [Ri ght Upper Arm] 91/78 Pulse Oximetry 81 L Oxygen Delivery Me thod Room Air Oxygen Flow Rate 07/12/24 15:30 07/12/24 15:30 07/12/24 15:32 Temperature Pulse Rate 108 H 102 H Pulse Rate [Pulse Oximeter] Respiratory Rate Blood Pressure 83/64 L Blood Pressure [Ri ght Upper Arm] Pulse Oximetry 90 90 90 Oxygen Delivery Me thod Nasal Cannula Oxygen Flow Rate 4 07/12/24 15:45 07/12/24 15:47 07/12/24 16:00 Temperature Pulse Rate 113 H 108 H 114 H Pulse Rate [Pulse Oximeter] Respiratory Rate 20 Blood Pressure 89/76 L Blood Pressure [Ri ght Upper Arm] Pulse Oximetry 90 90 90 Oxygen Delivery Me thod Oxygen Flow Rate 07/12/24 16:01 07/12/24 16:02 07/12/24 16:10 Temperature Pulse Rate 120 H 119 H Pulse Rate [Pulse Oximeter] Respiratory Rate 17 Blood Pressure 83/69 L Blood Pressure [Ri ght Upper Arm] Pulse Oximetry 91 89 94 Oxygen Delivery Me thod Nasal Cannula Oxygen Flow Rate 4 07/12/24 16:33 07/12/24 16:34 07/12/24 16:45 Temperature Pulse Rate 116 H Pulse Rate [Pulse Oximeter] Respiratory Rate 12 21 20 Blood Pressure 108/65 Blood Pressure [Ri ght Upper Arm] Pulse Oximetry 93 Oxygen Delivery Me thod Oxygen Flow Rate 07/12/24 16:47 07/12/24 16:48 07/12/24 17:00 Temperature Pulse Rate 105 H 101 H 117 H Pulse Rate [Pulse Oximeter] Respiratory Rate 23 Blood Pressure 118/94 H Blood Pressure [Ri ght Upper Arm] Pulse Oximetry 93 90 Oxygen Delivery Me thod Nasal Cannula Oxygen Flow Rate 4 07/12/24 17:02 07/12/24 17:15 07/12/24 17:16 Temperature Pulse Rate 113 H 98 97 Pulse Rate [Pulse Oximeter] Respiratory Rate 15 Blood Pressure 92/67 92/68 Blood Pressure [Ri ght Upper Arm] Pulse Oximetry 90 93 92 Oxygen Delivery Me thod Nasal Cannula Oxygen Flow Rate 4 07/12/24 17:17 07/12/24 17:30 07/12/24 17:32 Temperature Pulse Rate 99 109 H 102 H Pulse Rate [Pulse Oximeter] Respiratory Rate 5 L Blood Pressure 85/73 L Blood Pressure [Ri ght Upper Arm] Pulse Oximetry 89 93 92 Oxygen Delivery Me thod Oxygen Flow Rate 07/12/24 17:45 07/12/24 17:46 07/12/24 17:47 Temperature Pulse Rate 96 106 H 102 H Pulse Rate [Pulse Oximeter] Respiratory Rate 18 18 23 Blood Pressure 86/63 L Blood Pressure [Ri ght Upper Arm] Pulse Oximetry 92 91 93 Oxygen Delivery Me thod Oxygen Flow Rate 07/12/24 18:13 07/12/24 18:19 07/12/24 18:24 Temperature Pulse Rate 99 100 Pulse Rate [Pulse Oximeter] Respiratory Rate 16 17 Blood Pressure 78/46 L 77/58 L Blood Pressure [Ri ght Upper Arm] Pulse Oximetry 92 93 Oxygen Delivery Me thod Oxygen Flow Rate 07/12/24 18:30 07/12/24 18:32 07/12/24 18:33 Temperature Pulse Rate 96 95 91 Pulse Rate [Pulse Oximeter] Respiratory Rate 9 L Blood Pressure Blood Pressure [Ri ght Upper Arm] Pulse Oximetry 94 93 93 Oxygen Delivery Me thod Oxygen Flow Rate 07/12/24 18:38 07/12/24 18:38 07/12/24 18:45 Temperature Pulse Rate 93 90 Pulse Rate [Pulse Oximeter] Respiratory Rate 15 Blood Pressure 92/69 Blood Pressure [Ri ght Upper Arm] 92/69 Pulse Oximetry 93 92 Oxygen Delivery Me thod Oxygen Flow Rate 07/12/24 18:46 07/12/24 18:47 07/12/24 19:00 Temperature Pulse Rate 97 94 94 Pulse Rate [Pulse Oximeter] Respiratory Rate 18 19 16 Blood Pressure 87/63 L Blood Pressure [Ri ght Upper Arm] Pulse Oximetry 93 93 92 Oxygen Delivery Me thod Oxygen Flow Rate 07/12/24 19:01 07/12/24 19:15 07/12/24 19:16 Temperature Pulse Rate 90 89 98 Pulse Rate [Pulse Oximeter] Respiratory Rate 18 Blood Pressure 89/66 L 88/58 L Blood Pressure [Ri ght Upper Arm] Pulse Oximetry 93 91 93 Oxygen Delivery Me thod Oxygen Flow Rate 07/12/24 19:30 07/12/24 19:32 07/12/24 19:33 Temperature Pulse Rate 71 69 69 Pulse Rate [Pulse Oximeter] Respiratory Rate 25 H 22 Blood Pressure 102/66 Blood Pressure [Ri ght Upper Arm] Pulse Oximetry 91 93 92 Oxygen Delivery Me thod Oxygen Flow Rate 07/12/24 19:47 07/12/24 20:02 07/12/24 20:15 Temperature Pulse Rate 73 Pulse Rate [Pulse Oximeter] Respiratory Rate 14 18 20 Blood Pressure 87/72 L 119/68 Blood Pressure [Ri ght Upper Arm] Pulse Oximetry 92 Oxygen Delivery Me thod Oxygen Flow Rate 07/12/24 20:17 07/12/24 20:32 07/12/24 20:45 Temperature Pulse Rate 73 Pulse Rate [Pulse Oximeter] Respiratory Rate 25 H 17 21 Blood Pressure 91/63 96/67 Blood Pressure [Ri ght Upper Arm] Pulse Oximetry 83 L Oxygen Delivery Me thod Oxygen Flow Rate 07/12/24 20:47 Temperature Pulse Rate Pulse Rate [Pulse Oximeter] Respiratory Rate 22 Blood Pressure 91/66 Blood Pressure [Ri ght Upper Arm] Pulse Oximetry Oxygen Delivery Me thod Oxygen Flow Rate <Bharat Hinton MD - Last Filed: 07/15/24 15:53> Vital Signs, click to edit/add: Vital Signs - 24 hr 07/12/24 14:48 07/12/24 15:00 07/12/24 15:11 Temperature 97.5 F L Pulse Rate 103 H Pulse Rate [Pulse Oximeter] 106 H Respiratory Rate 22 Blood Pressure Blood Pressure [Ri ght Upper Arm] 91/78 Pulse Oximetry 81 L Oxygen Delivery Me thod Room Air Oxygen Flow Rate 07/12/24 15:30 07/12/24 15:30 07/12/24 15:32 Temperature Pulse Rate 108 H 102 H Pulse Rate [Pulse Oximeter] Respiratory Rate Blood Pressure 83/64 L Blood Pressure [Ri ght Upper Arm] Pulse Oximetry 90 90 90 Oxygen Delivery Me thod Nasal Cannula Oxygen Flow Rate 4 07/12/24 15:45 07/12/24 15:47 07/12/24 16:00 Temperature Pulse Rate 113 H 108 H 114 H Pulse Rate [Pulse Oximeter] Respiratory Rate 20 Blood Pressure 89/76 L Blood Pressure [Ri ght Upper Arm] Pulse Oximetry 90 90 90 Oxygen Delivery Me thod Oxygen Flow Rate 07/12/24 16:01 07/12/24 16:02 07/12/24 16:10 Temperature Pulse Rate 120 H 119 H Pulse Rate [Pulse Oximeter] Respiratory Rate 17 Blood Pressure 83/69 L Blood Pressure [Ri ght Upper Arm] Pulse Oximetry 91 89 94 Oxygen Delivery Me thod Nasal Cannula Oxygen Flow Rate 4 07/12/24 16:33 07/12/24 16:34 07/12/24 16:45 Temperature Pulse Rate 116 H Pulse Rate [Pulse Oximeter] Respiratory Rate 12 21 20 Blood Pressure 108/65 Blood Pressure [Ri ght Upper Arm] Pulse Oximetry 93 Oxygen Delivery Me thod Oxygen Flow Rate 07/12/24 16:47 07/12/24 16:48 07/12/24 17:00 Temperature Pulse Rate 105 H 101 H 117 H Pulse Rate [Pulse Oximeter] Respiratory Rate 23 Blood Pressure 118/94 H Blood Pressure [Ri ght Upper Arm] Pulse Oximetry 93 90 Oxygen Delivery Me thod Nasal Cannula Oxygen Flow Rate 4 07/12/24 17:02 07/12/24 17:15 07/12/24 17:16 Temperature Pulse Rate 113 H 98 97 Pulse Rate [Pulse Oximeter] Respiratory Rate 15 Blood Pressure 92/67 92/68 Blood Pressure [Ri ght Upper Arm] Pulse Oximetry 90 93 92 Oxygen Delivery Me thod Nasal Cannula Oxygen Flow Rate 4 07/12/24 17:17 07/12/24 17:30 07/12/24 17:32 Temperature Pulse Rate 99 109 H 102 H Pulse Rate [Pulse Oximeter] Respiratory Rate 5 L Blood Pressure 85/73 L Blood Pressure [Ri ght Upper Arm] Pulse Oximetry 89 93 92 Oxygen Delivery Me thod Oxygen Flow Rate 07/12/24 17:45 07/12/24 17:46 07/12/24 17:47 Temperature Pulse Rate 96 106 H 102 H Pulse Rate [Pulse Oximeter] Respiratory Rate 18 18 23 Blood Pressure 86/63 L Blood Pressure [Ri ght Upper Arm] Pulse Oximetry 92 91 93 Oxygen Delivery Me thod Oxygen Flow Rate 07/12/24 18:13 07/12/24 18:19 07/12/24 18:24 Temperature Pulse Rate 99 100 Pulse Rate [Pulse Oximeter] Respiratory Rate 16 17 Blood Pressure 78/46 L 77/58 L Blood Pressure [Ri ght Upper Arm] Pulse Oximetry 92 93 Oxygen Delivery Me thod Oxygen Flow Rate 07/12/24 18:30 07/12/24 18:32 07/12/24 18:33 Temperature Pulse Rate 96 95 91 Pulse Rate [Pulse Oximeter] Respiratory Rate 9 L Blood Pressure Blood Pressure [Ri ght Upper Arm] Pulse Oximetry 94 93 93 Oxygen Delivery Me thod Oxygen Flow Rate 07/12/24 18:38 07/12/24 18:38 07/12/24 18:45 Temperature Pulse Rate 93 90 Pulse Rate [Pulse Oximeter] Respiratory Rate 15 Blood Pressure 92/69 Blood Pressure [Ri ght Upper Arm] 92/69 Pulse Oximetry 93 92 Oxygen Delivery Me thod Oxygen Flow Rate 07/12/24 18:46 07/12/24 18:47 07/12/24 19:00 Temperature Pulse Rate 97 94 94 Pulse Rate [Pulse Oximeter] Respiratory Rate 18 19 16 Blood Pressure 87/63 L Blood Pressure [Ri ght Upper Arm] Pulse Oximetry 93 93 92 Oxygen Delivery Me thod Oxygen Flow Rate 07/12/24 19:01 07/12/24 19:15 07/12/24 19:16 Temperature Pulse Rate 90 89 98 Pulse Rate [Pulse Oximeter] Respiratory Rate 18 Blood Pressure 89/66 L 88/58 L Blood Pressure [Ri ght Upper Arm] Pulse Oximetry 93 91 93 Oxygen Delivery Me thod Oxygen Flow Rate 07/12/24 19:30 07/12/24 19:32 07/12/24 19:33 Temperature Pulse Rate 71 69 69 Pulse Rate [Pulse Oximeter] Respiratory Rate 25 H 22 Blood Pressure 102/66 Blood Pressure [Ri ght Upper Arm] Pulse Oximetry 91 93 92 Oxygen Delivery Me thod Oxygen Flow Rate 07/12/24 19:47 07/12/24 20:02 07/12/24 20:15 Temperature Pulse Rate 73 Pulse Rate [Pulse Oximeter] Respiratory Rate 14 18 20 Blood Pressure 87/72 L 119/68 Blood Pressure [Ri ght Upper Arm] Pulse Oximetry 92 Oxygen Delivery Me thod Oxygen Flow Rate 07/12/24 20:17 07/12/24 20:32 07/12/24 20:45 Temperature Pulse Rate 73 Pulse Rate [Pulse Oximeter] Respiratory Rate 25 H 17 21 Blood Pressure 91/63 96/67 Blood Pressure [Ri ght Upper Arm] Pulse Oximetry 83 L Oxygen Delivery Me thod Oxygen Flow Rate 07/12/24 20:47 Temperature Pulse Rate Pulse Rate [Pulse Oximeter] Respiratory Rate 22 Blood Pressure 91/66 Blood Pressure [Ri ght Upper Arm] Pulse Oximetry Oxygen Delivery Me thod Oxygen Flow Rate <Cameron Marshall MD - Last Filed: 07/14/24 13:13> Course Vital Signs Vital signs: Initial Vital Signs Pulse Oximetry 81 L 07/12/24 14:48 Oxygen Delivery Method Room Air 07/12/24 14:48 Vital Signs Pulse Oximetry 81 L 07/12/24 14:48 Oxygen Delivery Method Room Air 07/12/24 14:48 Temperature 98.3 F 07/15/24 13:00 Pulse Rate 89 07/15/24 13:00 Respiratory Rate 18 07/15/24 13:00 Blood Pressure 143/86 H 07/15/24 13:00 Pulse Oximetry 94 07/15/24 14:00 Oxygen Delivery Method Room Air 07/15/24 13:00 Oxygen Flow Rate 1 07/15/24 11:00 <Bharat Hinton MD - Last Filed: 07/15/24 15:53> Initial Vital Signs Pulse Oximetry 81 L 07/12/24 14:48 Oxygen Delivery Method Room Air 07/12/24 14:48 Vital Signs Pulse Oximetry 81 L 07/12/24 14:48 Oxygen Delivery Method Room Air 07/12/24 14:48 Temperature 98.3 F 07/15/24 13:00 Pulse Rate 89 07/15/24 13:00 Respiratory Rate 18 07/15/24 13:00 Blood Pressure 143/86 H 07/15/24 13:00 Pulse Oximetry 94 07/15/24 14:00 Oxygen Delivery Method Room Air 07/15/24 13:00 Oxygen Flow Rate 1 07/15/24 11:00 <Cameron Marshall MD - Last Filed: 07/14/24 13:13> Medications Administered Medications: Discontinued Medications Generic Name Dose Route Start Last Admin Trade Name Freq PRN Reason Stop Dose Admin Acetaminophen 975 mg 07/12/24 22:25 07/15/24 11:00 Acetaminophen 325 Mg Tablet PO Not Given Q6H FIDE Aspirin 81 mg 07/13/24 09:00 07/15/24 09:38 Aspirin 81 Mg Tablet Ec PO 81 mg DAILY FIDE Administration Dorzolamide/Timolol 1 drop 07/13/24 09:00 07/14/24 21:39 Dorzolamide/Timolol 2-0.5% Ophth EYE-BOTH 1 drop BID FIDE Administration Enoxaparin Sodium 40 mg 07/13/24 21:00 07/14/24 21:32 Enoxaparin 40 Mg/0.4 Ml Inj SUBCUT 40 mg HS FIDE Administration Escitalopram Oxalate 10 mg 07/14/24 13:45 07/15/24 09:38 Escitalopram 10 Mg Tablet PO 10 mg DAILY FIDE Administration Sodium Chloride 500 mls @ 500 mls/hr 07/12/24 15:16 07/12/24 19:32 0.9 % Sodium Chloride 500 Ml IV 07/12/24 16:15 Infused .Q1H ONE Infusion Latanoprost 1 drop 07/13/24 21:00 07/14/24 21:35 Latanoprost 0.005% Ophth EYE-BOTH 1 drop HS FIDE Administration Lidocaine 1 patch 07/12/24 22:25 07/14/24 22:19 Lidocaine 5% Patch TRANSDERMA 1 patch Q24H FIDE Administration Protocol Losartan Potassium 50 mg 07/14/24 10:25 07/15/24 09:37 Losartan Potassium 50 Mg Tablet PO 50 mg DAILY FIDE Administration Lovastatin 20 mg 07/13/24 21:00 07/14/24 21:33 Lovastatin 20 Mg Tablet PO 20 mg HS FIDE Administration Mirtazapine 7.5 mg 07/13/24 18:00 07/14/24 17:40 Mirtazapine 15 Mg Tablet PO 7.5 mg QPM FIDE Administration Omeprazole 20 mg 07/13/24 09:00 07/15/24 07:34 Omeprazole [address] PO 20 mg DAILY FIDE Administration Polyethylene Glycol 17 gm 07/13/24 13:25 07/15/24 09:38 Polyethylene Glycol 3350 17 Gm Pack PO Not Given DAILY FIDE Senna/Docusate Sodium 1 tab 07/13/24 13:30 07/15/24 09:39 Sennosides/Docusate Tablet PO Not Given DAILY FIDE Sodium Chloride 5 ml 07/13/24 09:00 07/15/24 09:39 Sodium Chloride 0.9 % (Flush) 10 Ml Syringe IVF 5 ml BID FIDE Administration Torsemide 20 mg 07/14/24 10:25 07/15/24 07:34 Torsemide 20 Mg Tablet PO 20 mg DAILY@0800 FIDE Administration <Bharat Hinton MD - Last Filed: 07/15/24 15:53> Discontinued Medications Generic Name Dose Route Start Last Admin Trade Name Joycelyn PRN Reason Stop Dose Admin Acetaminophen 975 mg 07/12/24 22:25 07/15/24 11:00 Acetaminophen 325 Mg Tablet PO Not Given Q6H FIDE Aspirin 81 mg 07/13/24 09:00 07/15/24 09:38 Aspirin 81 Mg Tablet Ec PO 81 mg DAILY FIDE Administration Dorzolamide/Timolol 1 drop 07/13/24 09:00 07/14/24 21:39 Dorzolamide/Timolol 2-0.5% Ophth EYE-BOTH 1 drop BID FIDE Administration Enoxaparin Sodium 40 mg 07/13/24 21:00 07/14/24 21:32 Enoxaparin 40 Mg/0.4 Ml Inj SUBCUT 40 mg HS FIDE Administration Escitalopram Oxalate 10 mg 07/14/24 13:45 07/15/24 09:38 Escitalopram 10 Mg Tablet PO 10 mg DAILY FIDE Administration Sodium Chloride 500 mls @ 500 mls/hr 07/12/24 15:16 07/12/24 19:32 0.9 % Sodium Chloride 500 Ml IV 07/12/24 16:15 Infused .Q1H ONE Infusion Latanoprost 1 drop 07/13/24 21:00 07/14/24 21:35 Latanoprost 0.005% Ophth EYE-BOTH 1 drop HS FIDE Administration Lidocaine 1 patch 07/12/24 22:25 07/14/24 22:19 Lidocaine 5% Patch TRANSDERMA 1 patch Q24H FIDE Administration Protocol Losartan Potassium 50 mg 07/14/24 10:25 07/15/24 09:37 Losartan Potassium 50 Mg Tablet PO 50 mg DAILY FIDE Administration Lovastatin 20 mg 07/13/24 21:00 07/14/24 21:33 Lovastatin 20 Mg Tablet PO 20 mg HS FIDE Administration Mirtazapine 7.5 mg 07/13/24 18:00 07/14/24 17:40 Mirtazapine 15 Mg Tablet PO 7.5 mg QPM FIDE Administration Omeprazole 20 mg 07/13/24 09:00 07/15/24 07:34 Omeprazole [address] PO 20 mg DAILY FIDE Administration Polyethylene Glycol 17 gm 07/13/24 13:25 07/15/24 09:38 Polyethylene Glycol 3350 17 Gm Pack PO Not Given DAILY FIDE Senna/Docusate Sodium 1 tab 07/13/24 13:30 07/15/24 09:39 Sennosides/Docusate Tablet PO Not Given DAILY FIDE Sodium Chloride 5 ml 07/13/24 09:00 07/15/24 09:39 Sodium Chloride 0.9 % (Flush) 10 Ml Syringe IVF 5 ml BID FIDE Administration Torsemide 20 mg 07/14/24 10:25 07/15/24 07:34 Torsemide 20 Mg Tablet PO 20 mg DAILY@0800 FIDE Administration <Cameron Marshall MD - Last Filed: 07/14/24 13:13> Medical Decision Making MDM Narrative Medical decision making narrative: [age] year white male with a history of generalized weakness. He does appear to have AFib on his EKG which she does not describe having had a history of. He does state that intermittently gets ?fluid around his lungs ?and that can affect his heart. I think he probably is talking about his pleural effusion. He may have an element of heart failure. I think until we know that I am going to give him a small fluid bolus, because of his weakness. Will check him for viral studies, will get a CT scan of his abdomen and pelvis with contrast because of his complaint of abdominal discomfort, will get a lumbar spine x-ray to recheck his spine. Will check a urinalysis, get electrolytes and blood work. Suspect the patient may need admission for observation due to his generalized weakness, PT and further assessment. Will discuss with Dr. marshall at change of shift who will assume care at this point. <Bharat Hinton MD - Last Filed: 07/15/24 15:53> [age] white male with a history of generalized weakness. He does appear to have AFib on his EKG which she does not describe having had a history of. He does state that intermittently gets ?fluid around his lungs ?and that can affect his heart. I think he probably is talking about his pleural effusion. He may have an element of heart failure. I think until we know that I am going to give him a small fluid bolus, because of his weakness. Will check him for viral studies, will get a CT scan of his abdomen and pelvis with contrast because of his complaint of abdominal discomfort, will get a lumbar spine x-ray to recheck his spine. Will check a urinalysis, get electrolytes and blood work. Suspect the patient may need admission for observation due to his generalized weakness, PT and further assessment. Will discuss with Dr. marshall at change of shift who will assume care at this point. Rolando -- in here to this patient at change of shift. pending labs and imaging. Discussed notably elevated troponin 1.28 though in the setting of quite high BNP. Chronically elevated white count With a history of CLL. However lactate elevated 2.6 and CRP 8.5. creatinine has increased from 0.4 5 months ago to 1.9 today . BUN also elevated from . looks to be experiencing some degree of dehydration. Did receive a fluid bolus. I do discuss with Mr. Musa and his daughter. Was diuresed during clinic visit earlier in the week. Looks like initiated on torsemide for lower extremity edema which admittedly has improved. Reviewing EKG is well looks to show likely new onset atrial fibrillation at a rate of [address] images of abdomen pelvis. Can appreciate a pleural effusion. CT abdomen and pelvis over-read below INDICATION: ABD PAIN, WEAKNESS, FALL. TECHNIQUE: CT abdomen and pelvis acquired with 66 cc Isovue 370 IV contrast. COMPARISON: June 01, 2024. FINDINGS: Lower chest: Loculated right-sided pleural effusion, stable from prior. Liver: Punctate enhancement in the right hepatic lobe (), may be flash filling hemangioma. Otherwise, no suspicious hepatic lesions identified. Gallbladder and bile ducts: Unremarkable. No stones or inflammation. No biliary dilatation. Pancreas: Unremarkable. No mass or inflammation. Spleen: Stable thick-walled splenic collection, unchanged. Otherwise, spleen is unremarkable. Splenic embolization coils are noted. Adrenal glands: Unremarkable. No nodules. Kidneys: Unremarkable. No suspicious masses, stones, or hydronephrosis. GI tract: Large stool burden. No bowel obstruction. Appendix is not visualized. Vasculature: Abdominal aorta is normal in caliber. Mesenteric arteries are patent. Lymph nodes: No lymphadenopathy. Peritoneum/Abdominal Wall: Postsurgical changes in the left anterior abdominal wall in the region of the pelvis. No sign of mass or infiltration. No free air or significant free fluid. Pelvis: Unremarkable. Bones: Stable near complete compression of the T12 vertebral body. L4 vertebral body demonstrates increased compression compared to the prior exam from June 01 now with mid vertebral height of approximately 1 centimeter, previously 1.6 centimeters. Diffuse demineralization of the visualized bones. Minimal increased retropulsion of the fracture fragment into the spinal canal. IMPRESSION: 1. Interval increase in height loss at the L4 vertebral body now measuring approximately 1 centimeter, previously 1.6 centimeter. Stable T12 compression fracture. 2. Redemonstrated elevated stool burden. 3. Other stable chronic findings. Please note that all CT scans at this facility use dose modulation, iterative reconstruction, and/or weight-based dosing when appropriate to reduce radiation dose to as low as reasonably achievable. Dictated by Hilda Vail MD @ 07/12/2024 4:57:56 PM INDICATION: : Weakness COMPARISON: CT chest/abdomen/pelvis on February 08, 2023 TECHNIQUE: One view(s) of the chest FINDINGS/IMPRESSION: Cardiomegaly. Medial right lung apex opacity and right mid to lower lung zone opacity, favored to represent loculated pleural effusion as seen on prior CT exam. The left lung is clear. No pneumothorax. No displaced fractures. Dictated by Bo Nicole MD @ 07/12/2024 4:56:13 PM INDICATION: Weakness. Fall. TECHNIQUE: Lumbar spine two views. COMPARISON: CT lumbar spine 06/01/2024. FINDINGS: Bone demineralization. Compression fractures of the T12 and L4 vertebra with associated loss of vertebral body height has not significantly changed. No radiographic evidence of acute lumbar spine fracture. Multilevel degenerative changes, as before. Coil embolization material in the left abdomen, as before. Surgical clips in the left pelvis. IMPRESSION: T12 and L4 compression fractures appear unchanged. Dictated by Miguel Zhong MD @ 07/12/2024 4:57:19 PM Arrived with newly significant hypoxia and stable pleural effusion. New onset atrial fibrillation apparently although he recounts history of rapid heart rate with feeling of gas around his heart historically but I do not know that there has actually been a diagnosis of atrial fibrillation. Think will need to check CT chest for pulmonary embolus Back in February looks to have had a similar appearing effusion with concern of empyema at that point. I had been recommended for follow-up PET scan as possible thoracentesis On review has spontaneously converted from atrial fibrillation. Blood pressure improved Will check oximetry needs. With but looks to be heart failure, cardiomyopathy possibly, does have soft pressures but concern of fluid overload as well. Appears to have sustained an acute kidney injury though, possibly iatrogenic. Discussing history further with Mr. Musa -- this effusion is of chronic duration and has been discussed with oncology was recommended against tap or intervention. Did discuss with hospitalist for admission. Due to chronicity of these issues I think it would be okay to admit here. They are concerned about medication ingestion as perhaps contributing to lower blood pressures. Again looks to have improved once no longer in atrial fibrillation as well. <Cameron Marshall MD - Last Filed: 07/14/24 13:13> Medical Records Medical records reviewed: Yes I reviewed the patient's medical records <Cameron Marshall MD - Last Filed: 07/14/24 13:13> Lab Data Lab results reviewed: Yes I reviewed the patient's lab results <Cameron Marshall MD - Last Filed: 07/14/24 13:13> Labs: Lab Results 07/12/24 07/12/24 07/12/24 Range/Units 15:25 15:40 16:45 WBC 15.78 H (4.50-11.00) K/uL RBC 3.87 L (4.30-5.90) m/uL Hgb 11.3 L (13.5-17.5) gm/dL Hct 35.9 L (37.0-53.0) % MCV 93 (80-100) fL MCH 29 (26-34) pg MCHC 32 (32-36) gm/dL RDW Coeff of Jocy 13.8 (11.5-15.5) % Plt Count 239 (140-440) K/uL Neut % (Auto) 60.5 (42.0-72.0) % Lymph % (Auto) 35.6 (20-44) % Hettinger % (Auto) 3.2 (0.0-11.0) % Eos % (Auto) 0.1 (0.0-7.0) % Baso % (Auto) 0.2 (0.0-3.0) % Neut # (Auto) 9.50 H (1.7-7.0) K/uL Lymph # (Auto) 5.60 H (0.90-2.90) K/uL Hettinger # (Auto) 0.50 (0.00-0.90) K/UL Eos # (Auto) 0.00 (0.00-0.50) K/uL Baso # (Auto) 0.00 (0.00-0.30) K/uL Abs Immat Gran (auto) 0.10 (0.00-0.30) K/uL Imm/Tot Granulo (auto) 0.4 % INR 1.34 H (0.91-1.10) APTT 32 (23-33) Seconds VBG pH 7.366 (7.32-7.43) VBG pCO2 49 (40-50) mmHG VBG pO2 < 30.1 (25-47) mmHG VBG HCO3 28 (21-28) mmol/L Sodium 133 L (135-149) mmol/L Potassium 5.0 (3.6-5.1) mmol/L Chloride 95 L (96-114) mmol/L Carbon Dioxide 28 (20-32) mmol/L Anion Gap 10 (7-15) mEq/L BUN 32 H (7-30) mg/dL Creatinine 1.9 H (0.5-1.5) mg/dL Estimated Creat Clear 25.96 Estimated GFR 35 ml/min Glucose 138 H (60-115) mg/dL Lactate 2.6 H (0.5-1.9) mmol/L Calcium 9.1 (8.4-10.6) mg/dL Magnesium 2.8 H (1.5-2.6) mg/dL Troponin I 1.28 H* (0.01-0.04) ng/mL C-Reactive Protein 8.5 H (0.5-1.0) mg/dL NT-Pro-B Natriuret Pep 37118 H (See Note) pg/mL Procalcitonin 2.26 H (<0.50) ng/mL Urine Color Yellow (Yellow) Urine Appearance Clear (Clear) Urine pH 7.0 (5.0-8.5) Ur Specific Ravenel 1.015 (1.000-1.030) Urine Protein 2+ A (Negative) Urine Glucose (UA) Negative (Negative) Urine Ketones Negative (Negative) Urine Blood 1+ A (Negative) Urine Nitrite Negative (Negative) Urine Bilirubin Negative (Negative) Urine Urobilinogen 0.2 (0.2-1.0) Ur Leukocyte Esterase Negative (Negative) Urine RBC 2-5 A (0-2) Urine WBC 0-2 (0-5) Ur Squamous Epith Cells None (None-Few) Urine Bacteria Few A (None) Urine Opiates Screen POSITIVE A (Negative) Ur Oxycodone Screen Negative (Negative) Urine Methadone Screen Negative (Negative) Ur Barbiturates Screen Negative (Negative) U Tricyclic Antidepress Negative (Negative) Ur Phencyclidine Scrn Negative (Negative) Ur Amphetamines Screen Negative (Negative) U Methamphetamines Scrn Negative (Negative) U Benzodiazepines Scrn POSITIVE A (Negative) Urine Cocaine Screen Negative (Negative) U Marijuana (THC) Screen Negative (Negative) Ur Drug Screen Comment See Note Ethyl Alcohol < 0.01 (0.01-0.03) % SARS-CoV-2 (PCR) Negative SARS-CoV-2 (Negative) Influenza Type A (PCR) Negative PCR FLU A (Negative) Influenza Type B (PCR) Negative PCR FLU B (Negative) RSV (PCR) Negative PCR RSV (Negative) Lab Acknowledgement 07/12/24 07/12/24 07/12/24 Range/Units 17:07 19:55 20:16 WBC (4.50-11.00) K/uL RBC (4.30-5.90) m/uL Hgb (13.5-17.5) gm/dL Hct (37.0-53.0) % MCV (80-100) fL MCH (26-34) pg MCHC (32-36) gm/dL RDW Coeff of Jocy (11.5-15.5) % Plt Count (140-440) K/uL Neut % (Auto) (42.0-72.0) % Lymph % (Auto) (20-44) % Hettinger % (Auto) (0.0-11.0) % Eos % (Auto) (0.0-7.0) % Baso % (Auto) (0.0-3.0) % Neut # (Auto) (1.7-7.0) K/uL Lymph # (Auto) (0.90-2.90) K/uL Hettinger # (Auto) (0.00-0.90) K/UL Eos # (Auto) (0.00-0.50) K/uL Baso # (Auto) (0.00-0.30) K/uL Abs Immat Gran (auto) (0.00-0.30) K/uL Imm/Tot Granulo (auto) % INR (0.91-1.10) APTT (23-33) Seconds VBG pH (7.32-7.43) VBG pCO2 (40-50) mmHG VBG pO2 (25-47) mmHG VBG HCO3 (21-28) mmol/L Sodium (135-149) mmol/L Potassium (3.6-5.1) mmol/L Chloride (96-114) mmol/L Carbon Dioxide (20-32) mmol/L Anion Gap (7-15) mEq/L BUN (7-30) mg/dL Creatinine (0.5-1.5) mg/dL Estimated Creat Clear Estimated GFR ml/min Glucose (60-115) mg/dL Lactate 1.2 (0.5-1.9) mmol/L Calcium (8.4-10.6) mg/dL Magnesium (1.5-2.6) mg/dL Troponin I 0.98 H* (0.01-0.04) ng/mL C-Reactive Protein (0.5-1.0) mg/dL NT-Pro-B Natriuret Pep (See Note) pg/mL Procalcitonin (<0.50) ng/mL Urine Color (Yellow) Urine Appearance (Clear) Urine pH (5.0-8.5) Ur Specific Ravenel (1.000-1.030) Urine Protein (Negative) Urine Glucose (UA) (Negative) Urine Ketones (Negative) Urine Blood (Negative) Urine Nitrite (Negative) Urine Bilirubin (Negative) Urine Urobilinogen (0.2-1.0) Ur Leukocyte Esterase (Negative) Urine RBC (0-2) Urine WBC (0-5) Ur Squamous Epith Cells (None-Few) Urine Bacteria (None) Urine Opiates Screen (Negative) Ur Oxycodone Screen (Negative) Urine Methadone Screen (Negative) Ur Barbiturates Screen (Negative) U Tricyclic Antidepress (Negative) Ur Phencyclidine Scrn (Negative) Ur Amphetamines Screen (Negative) U Methamphetamines Scrn (Negative) U Benzodiazepines Scrn (Negative) Urine Cocaine Screen (Negative) U Marijuana (THC) Screen (Negative) Ur Drug Screen Comment Ethyl Alcohol (0.01-0.03) % SARS-CoV-2 (PCR) (Negative) Influenza Type A (PCR) (Negative) Influenza Type B (PCR) (Negative) RSV (PCR) (Negative) Lab Acknowledgement Test Added <Bharat Hinton MD - Last Filed: 07/15/24 15:53> Lab Results 07/12/24 07/12/24 07/12/24 Range/Units 15:25 15:40 16:45 WBC 15.78 H (4.50-11.00) K/uL RBC 3.87 L (4.30-5.90) m/uL Hgb 11.3 L (13.5-17.5) gm/dL Hct 35.9 L (37.0-53.0) % MCV 93 (80-100) fL MCH 29 (26-34) pg MCHC 32 (32-36) gm/dL RDW Coeff of Jocy 13.8 (11.5-15.5) % Plt Count 239 (140-440) K/uL Neut % (Auto) 60.5 (42.0-72.0) % Lymph % (Auto) 35.6 (20-44) % Hettinger % (Auto) 3.2 (0.0-11.0) % Eos % (Auto) 0.1 (0.0-7.0) % Baso % (Auto) 0.2 (0.0-3.0) % Neut # (Auto) 9.50 H (1.7-7.0) K/uL Lymph # (Auto) 5.60 H (0.90-2.90) K/uL Hettinger # (Auto) 0.50 (0.00-0.90) K/UL Eos # (Auto) 0.00 (0.00-0.50) K/uL Baso # (Auto) 0.00 (0.00-0.30) K/uL Abs Immat Gran (auto) 0.10 (0.00-0.30) K/uL Imm/Tot Granulo (auto) 0.4 % INR 1.34 H (0.91-1.10) APTT 32 (23-33) Seconds VBG pH 7.366 (7.32-7.43) VBG pCO2 49 (40-50) mmHG VBG pO2 < 30.1 (25-47) mmHG VBG HCO3 28 (21-28) mmol/L Sodium 133 L (135-149) mmol/L Potassium 5.0 (3.6-5.1) mmol/L Chloride 95 L (96-114) mmol/L Carbon Dioxide 28 (20-32) mmol/L Anion Gap 10 (7-15) mEq/L BUN 32 H (7-30) mg/dL Creatinine 1.9 H (0.5-1.5) mg/dL Estimated Creat Clear 25.96 Estimated GFR 35 ml/min Glucose 138 H (60-115) mg/dL Lactate 2.6 H (0.5-1.9) mmol/L Calcium 9.1 (8.4-10.6) mg/dL Magnesium 2.8 H (1.5-2.6) mg/dL Troponin I 1.28 H* (0.01-0.04) ng/mL C-Reactive Protein 8.5 H (0.5-1.0) mg/dL NT-Pro-B Natriuret Pep 00341 H (See Note) pg/mL Procalcitonin 2.26 H (<0.50) ng/mL Urine Color Yellow (Yellow) Urine Appearance Clear (Clear) Urine pH 7.0 (5.0-8.5) Ur Specific Ravenel 1.015 (1.000-1.030) Urine Protein 2+ A (Negative) Urine Glucose (UA) Negative (Negative) Urine Ketones Negative (Negative) Urine Blood 1+ A (Negative) Urine Nitrite Negative (Negative) Urine Bilirubin Negative (Negative) Urine Urobilinogen 0.2 (0.2-1.0) Ur Leukocyte Esterase Negative (Negative) Urine RBC 2-5 A (0-2) Urine WBC 0-2 (0-5) Ur Squamous Epith Cells None (None-Few) Urine Bacteria Few A (None) Urine Opiates Screen POSITIVE A (Negative) Ur Oxycodone Screen Negative (Negative) Urine Methadone Screen Negative (Negative) Ur Barbiturates Screen Negative (Negative) U Tricyclic Antidepress Negative (Negative) Ur Phencyclidine Scrn Negative (Negative) Ur Amphetamines Screen Negative (Negative) U Methamphetamines Scrn Negative (Negative) U Benzodiazepines Scrn POSITIVE A (Negative) Urine Cocaine Screen Negative (Negative) U Marijuana (THC) Screen Negative (Negative) Ur Drug Screen Comment See Note Ethyl Alcohol < 0.01 (0.01-0.03) % SARS-CoV-2 (PCR) Negative SARS-CoV-2 (Negative) Influenza Type A (PCR) Negative PCR FLU A (Negative) Influenza Type B (PCR) Negative PCR FLU B (Negative) RSV (PCR) Negative PCR RSV (Negative) Lab Acknowledgement 07/12/24 07/12/24 07/12/24 Range/Units 17:07 19:55 20:16 WBC (4.50-11.00) K/uL RBC (4.30-5.90) m/uL Hgb (13.5-17.5) gm/dL Hct (37.0-53.0) % MCV (80-100) fL MCH (26-34) pg MCHC (32-36) gm/dL RDW Coeff of Jocy (11.5-15.5) % Plt Count (140-440) K/uL Neut % (Auto) (42.0-72.0) % Lymph % (Auto) (20-44) % Hettinger % (Auto) (0.0-11.0) % Eos % (Auto) (0.0-7.0) % Baso % (Auto) (0.0-3.0) % Neut # (Auto) (1.7-7.0) K/uL Lymph # (Auto) (0.90-2.90) K/uL Hettinger # (Auto) (0.00-0.90) K/UL Eos # (Auto) (0.00-0.50) K/uL Baso # (Auto) (0.00-0.30) K/uL Abs Immat Gran (auto) (0.00-0.30) K/uL Imm/Tot Granulo (auto) % INR (0.91-1.10) APTT (23-33) Seconds VBG pH (7.32-7.43) VBG pCO2 (40-50) mmHG VBG pO2 (25-47) mmHG VBG HCO3 (21-28) mmol/L Sodium (135-149) mmol/L Potassium (3.6-5.1) mmol/L Chloride (96-114) mmol/L Carbon Dioxide (20-32) mmol/L Anion Gap (7-15) mEq/L BUN (7-30) mg/dL Creatinine (0.5-1.5) mg/dL Estimated Creat Clear Estimated GFR ml/min Glucose (60-115) mg/dL Lactate 1.2 (0.5-1.9) mmol/L Calcium (8.4-10.6) mg/dL Magnesium (1.5-2.6) mg/dL Troponin I 0.98 H* (0.01-0.04) ng/mL C-Reactive Protein (0.5-1.0) mg/dL NT-Pro-B Natriuret Pep (See Note) pg/mL Procalcitonin (<0.50) ng/mL Urine Color (Yellow) Urine Appearance (Clear) Urine pH (5.0-8.5) Ur Specific Ravenel (1.000-1.030) Urine Protein (Negative) Urine Glucose (UA) (Negative) Urine Ketones (Negative) Urine Blood (Negative) Urine Nitrite (Negative) Urine Bilirubin (Negative) Urine Urobilinogen (0.2-1.0) Ur Leukocyte Esterase (Negative) Urine RBC (0-2) Urine WBC (0-5) Ur Squamous Epith Cells (None-Few) Urine Bacteria (None) Urine Opiates Screen (Negative) Ur Oxycodone Screen (Negative) Urine Methadone Screen (Negative) Ur Barbiturates Screen (Negative) U Tricyclic Antidepress (Negative) Ur Phencyclidine Scrn (Negative) Ur Amphetamines Screen (Negative) U Methamphetamines Scrn (Negative) U Benzodiazepines Scrn (Negative) Urine Cocaine Screen (Negative) U Marijuana (THC) Screen (Negative) Ur Drug Screen Comment Ethyl Alcohol (0.01-0.03) % SARS-CoV-2 (PCR) (Negative) Influenza Type A (PCR) (Negative) Influenza Type B (PCR) (Negative) RSV (PCR) (Negative) Lab Acknowledgement Test Added <Cameron Marshall MD - Last Filed: 07/14/24 13:13> ECG Data Attestation: I personally reviewed and interpreted this ECG as follows: (EKG 1. Showing atrial fibrillation with RVR at 107. EKG 2. Spontaneously converted. Shows normal sinus rhythm at a rate of 73) <Cameron Marshall MD - Last Filed: 07/14/24 13:13> Discharge Plan Discharge Clinical Impression: Respiratory failure, T12 compression fracture, Closed compression fracture of L4 vertebra, Weakness, Acute kidney injury <Bharat Hinton MD - Last Filed: 07/15/24 15:53> Patient Disposition: Admitted As Observation <Bharat Hinton MD - Last Filed: 07/15/24 15:53> Condition: Guarded <Bharat Hinton MD - Last Filed: 07/15/24 15:53> Activity Level: Activity as Tolerated and Use Walker <Bharat Hinton MD - Last Filed: 07/15/24 15:53> Activity as Tolerated and Use Walker <Cameron Marshall MD - Last Filed: 07/14/24 13:13> Discharge Diet: Heart Healthy (2 gm sodium, low fat) <Bharat Hinton MD - Last Filed: 07/15/24 15:53> Heart Healthy (2 gm sodium, low fat) <Cameron Marshall MD - Last Filed: 07/14/24 13:13>
[2024-07-12 15:30] LABS: HCO3 VBG 28 mmol/L (21-28); Lactate* 2.6 mmol/L (0.5-1.9); PCO2 VBG 49 mmHG (40-50); PO2 VBG < 30.1 mmHG (25-47); pH VBG 7.366 (7.32-7.43)
[2024-07-12 15:34] LABS: Basophils Percent Auto 0.2 % (0.0-3.0); Eosinophils Percent Auto 0.1 % (0.0-7.0); Hematocrit 35.9 % (37.0-53.0); Hemoglobin* 11.3 gm/dL (13.5-17.5); Immature Granulocytes Pct Auto 0.4 %; Lymphocytes Percent Auto 35.6 % (20-44); Mean Corpuscular HGB Conc 32 gm/dL (32-36); Mean Corpuscular Hemoglobin 29 pg (26-34); Mean Corpuscular Volume 93 fL (80-100); Monocytes Percent Auto 3.2 % (0.0-11.0); Neutrophils Percent Auto 60.5 % (42.0-72.0); Platelet Count* 239 K/uL (140-440); RDW Coefficient of Variation % 13.8 % (11.5-15.5); Red Blood Count 3.87 m/uL (4.30-5.90); White Blood Count* 15.78 K/uL (4.50-11.00)
[2024-07-12 15:41] LABS: Slide Review Reflex No
[2024-07-12 15:53] LABS: Chloride* 95 mmol/L (96-114); Sodium* 133 mmol/L (135-149)
[2024-07-12 15:56] LABS: Anion Gap 10 mEq/L (7-15); Blood Urea Nitrogen* 32 mg/dL (7-30); Calcium* 9.1 mg/dL (8.4-10.6); Carbon Dioxide* 28 mmol/L (20-32); Creatinine* 1.9 mg/dL (0.5-1.5); Est. Creatinine Clearance* 25.96; Estimated Glomerular Filt Rate 35 ml/min; Glucose* 138 mg/dL (60-115)
[2024-07-12 15:57] LABS: INR 1.34 (0.91-1.10); Prothrombin Time 17.5 Seconds
[2024-07-12 15:58] LABS: Partial Thromboplastin Time* 32 Seconds (23-33)
[2024-07-12 15:59] LABS: C Reactive Protein* 8.5 mg/dL (0.5-1.0)
[2024-07-12 16:20] LABS: NT Pro B Type NatriureticPept* 15600 pg/mL (See Note)
[2024-07-12 16:21] LABS: Ethanol* < 0.01 % (0.01-0.03); Troponin I* 1.28 ng/mL (0.01-0.04)
[2024-07-12 16:34] LABS: PCR FLU A Negative PCR FLU A (Negative); PCR FLU B Negative PCR FLU B (Negative); PCR RSV Negative PCR RSV (Negative); SARS PCR* Negative SARS-CoV-2 (Negative)
[2024-07-12 17:01] LABS: Appearance Urine Clear (Clear); Bilirubin Urine Negative (Negative); Blood Urine 1+ (Negative); Color Urine Yellow (Yellow); Glucose Urine Negative (Negative); Ketones Urine Negative (Negative); Leukocyte Esterase Urine Negative (Negative); Nitrite Urine Negative (Negative); Protein Urine 2+ (Negative); Specific Gravity Urine 1.015 (1.000-1.030); Urobilinogen Urine 0.2 (0.2-1.0)
[2024-07-12 17:06] LABS: Bacteria Urine Few; WBC Urine 0-2 (0-5)
--- NOTE | 2024-07-12 17:42 | CRLHL7_ITS ---
For Patients: As a result of the Century Cures Act, medical imaging exams and procedure reports are released immediately into your electronic medical record. You may view this report before your referring provider. If you have questions, please contact your health care provider. INDICATION: Worsening hypoxia, new AFib. TECHNIQUE: CT chest PE was acquired with 95 cc Isovue 370 IV contrast. COMPARISON: 02/08/2023. FINDINGS: Heart and vasculature: Contrast opacification of the pulmonary arterial tree is adequate. No sign of pulmonary embolism. Heart size is normal. Borderline ectasia of the ascending thoracic aorta measuring up to 4.0 cm. Mildly dilated main pulmonary artery measuring up to 3.5 cm. Atherosclerotic calcifications of the aorta and branches. Coronary artery calcifications. Contrast refluxing down the IVC into the hepatic veins. Lungs and pleura: No definite acute pulmonary infiltrate. No suspicious nodules. Mild subsegmental atelectasis. Calcified granulomas. Moderate right pleural fluid collection with split pleura sign extending from the right lung base to the right apex. Trace left pleural effusion. No pneumothorax. Lymph nodes/mediastinum: No pathologic mediastinal, hilar, or axillary adenopathy. Chest wall: No masses. Upper abdomen: No definite acute findings. Stable thick-walled splenic collection measuring up to 10 cm (4/183). Splenic embolization coils. Bones: Compared to 02/08/2023, new compression fracture of the T12 vertebral body with substantial associated height loss that is favored chronic. IMPRESSION: 1. No evidence of pulmonary embolism. 2. Moderate right-sided pleural fluid collection with features suggestive of empyema. 3. Mildly dilated main pulmonary artery measuring up to 3.5 cm is nonspecific but possibly consistent with chronic pulmonary hypertension. 4. Contrast flushing down the IVC into the hepatic veins is nonspecific but possibly consistent with right heart failure. 5. Borderline ascending aortic ectasia measuring 4.0 cm. 6. Compared to 02/08/2023, new compression fracture of the T12 vertebral body with substantial associated height loss that is favored chronic. Please note that all CT scans at this facility use dose modulation, iterative reconstruction, and/or weight-based dosing when appropriate to reduce radiation dose to as low as reasonably achievable. Dictated by Cameron Espino MD @ 07/12/2024 6:58:11 PM (Electronically Signed)
[2024-07-12 17:43] LABS: Troponin I* 0.98 ng/mL (0.01-0.04)
[2024-07-12] MEDS: 0.9 % SODIUM CHLORIDE 500 ML 500 ML IV (18:20)
[2024-07-12 19:58] LABS: Lactate* 1.2 mmol/L (0.5-1.9)
[2024-07-12 20:34] LABS: Amphetamine Screen Urine Negative (Negative); Barbiturate Screen Urine Negative (Negative); Benzodiazepines Screen Urine POSITIVE (Negative); Cannabinoid Screen Urine Negative (Negative); Cocaine Screen Urine Negative (Negative); Methadone Screen Urine Negative (Negative); Methamphetamines Screen Urine Negative (Negative); Opiate Screen Urine POSITIVE (Negative); Oxycodone Screen Urine Negative (Negative); Phencyclidine Screen Urine Negative (Negative); Tricyclic Antidepressant Urine Negative (Negative)
--- NOTE | 2024-07-12 21:45 | PM.IMHP1 ---
Assessment and Plan Assessment and plan (1) Acute hypoxic respiratory failure: Problem comment: Oxygen saturation 81% on room air. Baseline is low 90s BNP 71201 Troponin 1.28 -> 0.98, no chest pain likely in setting of elevated BNP, NAYELY VBG pH 7.366, pCO2 49, PO2 < 30, HC03 28 Imaging without evidence of acute infectious process Procalcitonin ordered. Magnesium ordered CTA chest negative for PE, shows chronic pleural effusion, chronic pleural fluid collection noted. Possible right heart failure reported Continue oxygen supplementation, weaning as able ECHO ordered RT consult for pulmonary support Status: Acute (2) Hypotension: Problem comment: Suspected in setting of dehydration, misuse of opiates/benzos/muscle relaxants Responding to IVF Will continue small boluses, in setting of acute on chronic fluid overload Discussed possible need for pressors with patient and DIL Hold home antihypertensives Status: Acute (3) Acute kidney injury: Problem comment: Creatinine 1.9, baseline 0.5 Recently prescribed Lasix and torsemide for peripheral edema - hold Also taking celoxib for chronic pain - hold Avoid nephrotoxic medications Recheck creatinine in the morning following IVF hydration Status: Acute (4) Dehydration: Problem comment: Recent use of diuretics BUN 32, creatinine 1.9 Gentle IV hydration in setting of fluid overload Status: Acute (5) Weakness: Problem comment: Acute in setting of above PT/OT consults Status: Acute (6) Pleural effusion: Problem comment: Chronic. Trace left pleural effusion per imaging today Also noted on CTA is Moderate right-sided pleural fluid collection with features suggestive of empyema - this is chronic, patient has had 2 outpatient visits with [facility] - POC is monitoring. Sampling was discussed and deferred given risks Status: Chronic (7) HTN (hypertension): Problem comment: Hold home medications in setting of hypotension Status: Acute (8) Chronic lymphocytic leukemia: Problem comment: Stable leukocytosis Status: Chronic (9) T12 compression fracture: Problem comment: Chronic T12 compression fracture. Per EMR, has been using opiates and most recently prescribed Flexeril Will manage with scheduled Tylenol, lidocaine patch, ice/heat Avoid opiates, muscle relaxers, benzos PT/OT consults Recommended outpatient therapy, consider PM&R Status: Chronic (10) Intentional misuse of medication: Problem comment: Suspected additional cause of conglomeration of symptoms UDS is positive for opiates and benzodiazepines. During initial evaluation, patient denied taking anything other than Flexeril. His DIL questioned him if he was taking his 's hospice medications. We did discuss this, suspects he has been using her morphine, tramadol, Ativan. Had a discussion with patient regarding risks and unfavorable outcomes if he continues to do this, verbalizes understanding Status: Acute (11) Alcohol abuse: Problem comment: Sober since February 2023 following hospitalization Status: Chronic (12) Anxiety: Problem comment: In past, was using alcohol to cope, now using his 's benzos and opiates Outpatient follow up with PCP for further management options Status: Chronic (13) Paroxysmal atrial fibrillation: Problem comment: EKG in the ED shows AFib with RVR, ventricular rate 107 Converted to NSR without chemical or electrical intervention Patient reports palpitations since young adulthood As he has converted to NSR, and in setting of hypotension, will hold beta hugo Fall risk. Discussed anticoagulation and risks. Takes a baby aspirin daily Outpatient follow-up with PCP for further evaluation and management Status: Acute Total Time Spent Total Time Spent: Today I spent 90 minutes seeing the patient, reviewing Expanse and EPIC notes/diagnostics, discussing the care plan with our care time that includes social work, PT/OT, pharmacy, RT, fpc and documenting my impressions and plan in the medical record. Acuity is characterized as high and reflected in: Acute hypoxic respiratory failure with hypotension, NAYELY, fluid overload This patient will require hospital services as outlined in the assessment and plan in order to stabilize and be safely discharged to a lower level of care. Because of the risk and acuity as described above, this patient cannot be managed at a lower level of care. Hospitalist- H&P: HPI History of Present Illness Date Seen: 07/12/24 Chief complaint: Weakness Narrative: Butch Musa is a 84 year old male past medical history significant for CLL, chronic peripheral edema, pleural effusion, hypertension, T12 compression fracture, anxiety, alcohol abuse sober since February 2023 is admitted to critical care from the ED in setting of acute hypoxic respiratory failure, hypotension, dehydration. Patient is seen with Merry DIAMOND, at bedside. Patient reports increasing weakness over the last couple of days. He did fall 2 days ago, landing on his back. He has a T12 compression fracture from February 2023 following a fall. Also an L4 compression fracture. History of recurrent falls. Denies headache or dizziness. Denies chest pain. Does report feeling his heart racing which he tells me occurs intermittently and has done so since young adulthood. Does not necessarily feel short of breath was requiring oxygen. Denies recent fevers or chills. Denies abdominal pain, nausea, vomiting. No change in his stools. No change in urination. Has been taking diuretics but has not had increased urine output. Several recent changes in medication. He had been taking Lasix with no response. Currently taking torsemide. Tells me he has not taken both of them on the same day, having only had 3 doses of Lasix to take. He was recently prescribed Flexeril and celoxib for his chronic back pain. Denies taking other scheduled pain medications with this. Patient lives in his own home with his who is currently on hospice. He is the primary care provider. Reports being sober since February 2023, his last hospitalization. Nonsmoker. PCP is Dr. Joseph though he is changing providers to our clinic. His son, David, is his POA. His DIL, Summer, is his point of contact for this stay. Review of Systems Narrative: REVIEW OF SYSTEMS: Complete review of systems performed and negative unless otherwise stated in HPI or below. Medical Decision Making Medical Decision Making Code Status: Full code Has patient completed a Health Care Directive: No During This Stay, Who Would You Like To Make Decisions For You In The Event You Are Unable To Make Them For Yourself?: Summer, Relevant situational information: Son, David, is POA. Has Parkinson's and under a lot of stress. Communication is done through Summer currently. Legally, aware they will need to address and change this [facility] Medical History Anxiety ?F41.9 - Anxiety disorder, unspecified (ICD-10) Chronic lymphocytic leukemia ?C91.10 - Chronic lymphocytic leukemia of B-cell type not having achieved remission (ICD-10) HTN (hypertension) ?I10 - Essential (primary) hypertension (ICD-10) Alcohol abuse ?F10.10 - Alcohol abuse, uncomplicated (ICD-10) Fall ?W19.XXXA - Unspecified fall, initial encounter (ICD-10) Splenic cyst ?D73.4 - Cyst of spleen (ICD-10) Hyperlipidemia ?E78.5 - Hyperlipidemia, unspecified (ICD-10) GERD (gastroesophageal reflux disease) ?K21.9 - Gastro-esophageal reflux disease without esophagitis (ICD-10) Cataract ?H26.9 - Unspecified cataract (ICD-10) Spleen hematoma ?S36.029A - Unspecified contusion of spleen, initial encounter (ICD-10) Ganglion cyst ?M67.40 - Ganglion, unspecified site (ICD-10) Surgical History History of cataract extraction with lens replacement History of hernia repair ?Z98.890 - Other specified postprocedural states (ICD-10) ?Z87.19 - Personal history of other diseases of the digestive system (ICD-10) Social History What is your current living situation?: I presently have a place to live Problems where you live: no known problems Problems where you live details: NA In the past 12 months, utilities in danger of being shut off: no In past 12 months, lack of transportation kept you from medical appts, meetings, work, or getting things needed for daily living: no In the past 12 mos, have been you worried that your food would run out before you had money to buy more?: never true In the past 12 mos, the food you bought just didn't last and you didn't have money to buy more?: never true Highest level of school completed/degree received: high school graduate Smoking Status: Never smoker Do you use any of these nicotine containing products: None Second hand tobacco smoke exposure: No How many standard drinks containing alcohol do you have on a typical day: 1 or 2 How often do you have six or more drinks on one occasion: Never AUDIT-C Alcohol total score: 0 Non-prescribed substance use: denies use Caffeine: Yes How often does anyone, including family, friends and others, physically hurt you: never How often does anyone, including family, friends and others, insult or talk down to you: never How often does anyone, including family, friends and others, threaten you with harm: never How often does anyone, including family, friends and others, scream or curse at you: never service: No Meds Home Medications and Allergies Home Medications ?Medication ?Instructions ?Recorded ?Confirmed ?Type aspirin 81 mg tablet,delayed 81 mg PO DAILY 11/24/22 07/12/24 History release (Adult Low Dose Aspirin) chlorthalidone 25 mg tablet 25 mg PO DAILY 11/24/22 07/12/24 History latanoprost 0.005 % eye drops 1 drp ophthalmic (eye) QPM 11/24/22 07/12/24 History losartan 50 mg tablet 50 mg PO DAILY 11/24/22 07/12/24 History lovastatin 40 mg tablet 20 mg PO HS 11/24/22 07/12/24 History omeprazole 20 mg capsule,delayed 20 mg PO DAILY 11/24/22 07/12/24 History release metoprolol succinate 100 mg 100 mg PO DAILY 02/08/23 07/12/24 History tablet,extended release 24 hr hydrocodone 5 mg-acetaminophen 325 1 tab PO Q6H PRN pain #10 tabs 06/01/24 07/12/24 Rx mg tablet amlodipine 10 mg tablet 10 mg PO DAILY 07/12/24 07/12/24 History celecoxib 200 mg capsule 200 mg PO DAILY 07/12/24 07/12/24 History cyclobenzaprine 10 mg tablet 10 mg PO QPM PRN muscle spasm 07/12/24 07/12/24 History dorzolamide-timolol (PF) 2 %-0.5 % 1 drp ophthalmic (eye) BID 07/12/24 07/12/24 History eye drops in a dropperette mirtazapine 7.5 mg tablet 7.5 mg PO QPM 07/12/24 07/12/24 History torsemide 20 mg tablet 20 mg PO DAILY 07/12/24 07/12/24 History Allergies Allergy/AdvReac Type Severity Reaction Status Date / Time No Known Drug Allergies Allergy Verified 07/12/24 18:14 Exam Narrative: Exam Narrative: PHYSICAL EXAM General: Pleasant, conversant, appears frail and thin otherwise NAD HEENT: Normocephalic, atraumatic, sclera white, EOMI, oral mucosa dry Cardiovascular: RRR currently. +3 pitting edema bilaterally Pulmonary: Diffusely diminished, no rhonchi, no rales, no expiratory wheezes. No dyspnea on 3 L Abdominal: Soft, nondistended, NTTP Neurological: Alert, answering questions appropriately currently, cranial nerves intact, no focal findings Extremities: No gross joint deformity. AROMI. Neurovascularly intact Skin: Warm, dry. Const: Vital Signs, click to edit/add: Vital Signs - 24 hr 07/12/24 14:48 07/12/24 15:00 07/12/24 15:11 Temperature 97.5 F L Pulse Rate 103 H Pulse Rate [Pulse Oximeter] 106 H Respiratory Rate 22 Blood Pressure Blood Pressure [Ri ght Upper Arm] 91/78 Pulse Oximetry 81 L Oxygen Delivery Me thod Room Air Oxygen Flow Rate 07/12/24 15:30 07/12/24 15:30 07/12/24 15:32 Temperature Pulse Rate 108 H 102 H Pulse Rate [Pulse Oximeter] Respiratory Rate Blood Pressure 83/64 L Blood Pressure [Ri ght Upper Arm] Pulse Oximetry 90 90 90 Oxygen Delivery Me thod Nasal Cannula Oxygen Flow Rate 4 07/12/24 15:45 07/12/24 15:47 07/12/24 16:00 Temperature Pulse Rate 113 H 108 H 114 H Pulse Rate [Pulse Oximeter] Respiratory Rate 20 Blood Pressure 89/76 L Blood Pressure [Ri ght Upper Arm] Pulse Oximetry 90 90 90 Oxygen Delivery Me thod Oxygen Flow Rate 07/12/24 16:01 07/12/24 16:02 07/12/24 16:10 Temperature Pulse Rate 120 H 119 H Pulse Rate [Pulse Oximeter] Respiratory Rate 17 Blood Pressure 83/69 L Blood Pressure [Ri ght Upper Arm] Pulse Oximetry 91 89 94 Oxygen Delivery Me thod Nasal Cannula Oxygen Flow Rate 4 07/12/24 16:33 07/12/24 16:34 07/12/24 16:45 Temperature Pulse Rate 116 H Pulse Rate [Pulse Oximeter] Respiratory Rate 12 21 20 Blood Pressure 108/65 Blood Pressure [Ri ght Upper Arm] Pulse Oximetry 93 Oxygen Delivery Me thod Oxygen Flow Rate 07/12/24 16:47 07/12/24 16:48 07/12/24 17:00 Temperature Pulse Rate 105 H 101 H 117 H Pulse Rate [Pulse Oximeter] Respiratory Rate 23 Blood Pressure 118/94 H Blood Pressure [Ri ght Upper Arm] Pulse Oximetry 93 90 Oxygen Delivery Me thod Nasal Cannula Oxygen Flow Rate 4 07/12/24 17:02 07/12/24 17:15 07/12/24 17:16 Temperature Pulse Rate 113 H 98 97 Pulse Rate [Pulse Oximeter] Respiratory Rate 15 Blood Pressure 92/67 92/68 Blood Pressure [Ri ght Upper Arm] Pulse Oximetry 90 93 92 Oxygen Delivery Me thod Nasal Cannula Oxygen Flow Rate 4 07/12/24 17:17 07/12/24 17:30 07/12/24 17:32 Temperature Pulse Rate 99 109 H 102 H Pulse Rate [Pulse Oximeter] Respiratory Rate 5 L Blood Pressure 85/73 L Blood Pressure [Ri ght Upper Arm] Pulse Oximetry 89 93 92 Oxygen Delivery Me thod Oxygen Flow Rate 07/12/24 17:45 07/12/24 17:46 07/12/24 17:47 Temperature Pulse Rate 96 106 H 102 H Pulse Rate [Pulse Oximeter] Respiratory Rate 18 18 23 Blood Pressure 86/63 L Blood Pressure [Ri ght Upper Arm] Pulse Oximetry 92 91 93 Oxygen Delivery Me thod Oxygen Flow Rate 07/12/24 18:13 07/12/24 18:19 07/12/24 18:24 Temperature Pulse Rate 99 100 Pulse Rate [Pulse Oximeter] Respiratory Rate 16 17 Blood Pressure 78/46 L 77/58 L Blood Pressure [Ri ght Upper Arm] Pulse Oximetry 92 93 Oxygen Delivery Me thod Oxygen Flow Rate 07/12/24 18:30 07/12/24 18:32 07/12/24 18:33 Temperature Pulse Rate 96 95 91 Pulse Rate [Pulse Oximeter] Respiratory Rate 9 L Blood Pressure Blood Pressure [Ri ght Upper Arm] Pulse Oximetry 94 93 93 Oxygen Delivery Me thod Oxygen Flow Rate 07/12/24 18:38 07/12/24 18:38 07/12/24 18:45 Temperature Pulse Rate 93 90 Pulse Rate [Pulse Oximeter] Respiratory Rate 15 Blood Pressure 92/69 Blood Pressure [Ri ght Upper Arm] 92/69 Pulse Oximetry 93 92 Oxygen Delivery Me thod Oxygen Flow Rate 07/12/24 18:46 07/12/24 18:47 07/12/24 19:00 Temperature Pulse Rate 97 94 94 Pulse Rate [Pulse Oximeter] Respiratory Rate 18 19 16 Blood Pressure 87/63 L Blood Pressure [Ri ght Upper Arm] Pulse Oximetry 93 93 92 Oxygen Delivery Me thod Oxygen Flow Rate 07/12/24 19:01 07/12/24 19:15 07/12/24 19:16 Temperature Pulse Rate 90 89 98 Pulse Rate [Pulse Oximeter] Respiratory Rate 18 Blood Pressure 89/66 L 88/58 L Blood Pressure [Ri ght Upper Arm] Pulse Oximetry 93 91 93 Oxygen Delivery Me thod Oxygen Flow Rate 07/12/24 19:30 07/12/24 19:32 07/12/24 19:33 Temperature Pulse Rate 71 69 69 Pulse Rate [Pulse Oximeter] Respiratory Rate 25 H 22 Blood Pressure 102/66 Blood Pressure [Ri ght Upper Arm] Pulse Oximetry 91 93 92 Oxygen Delivery Me thod Oxygen Flow Rate 07/12/24 19:47 07/12/24 20:02 07/12/24 20:15 Temperature Pulse Rate 73 Pulse Rate [Pulse Oximeter] Respiratory Rate 14 18 20 Blood Pressure 87/72 L 119/68 Blood Pressure [Ri ght Upper Arm] Pulse Oximetry 92 Oxygen Delivery Me thod Oxygen Flow Rate 07/12/24 20:17 07/12/24 20:32 07/12/24 20:45 Temperature Pulse Rate 73 Pulse Rate [Pulse Oximeter] Respiratory Rate 25 H 17 21 Blood Pressure 91/63 96/67 Blood Pressure [Ri ght Upper Arm] Pulse Oximetry 83 L Oxygen Delivery Me thod Oxygen Flow Rate 07/12/24 20:47 Temperature Pulse Rate Pulse Rate [Pulse Oximeter] Respiratory Rate 22 Blood Pressure 91/66 Blood Pressure [Ri ght Upper Arm] Pulse Oximetry Oxygen Delivery Me thod Oxygen Flow Rate Hospitalist - H&P: Result Labs Labs: Short CBC 07/12/24 Range/Units 15:25 WBC 15.78 H (4.50-11.00) K/uL Hgb 11.3 L (13.5-17.5) gm/dL Hct 35.9 L (37.0-53.0) % Plt Count 239 (140-440) K/uL BMP 07/12/24 15:25 Sodium 133 L Potassium 5.0 Chloride 95 L Carbon Dioxide 28 BUN 32 H Creatinine 1.9 H Glucose 138 H Calcium 9.1 Cardiac Enzymes 07/12/24 07/12/24 Range/Units 15:25 17:07 Troponin I 1.28 H* 0.98 H* (0.01-0.04) ng/mL Urine 07/12/24 Range/Units 16:45 Urine Color Yellow (Yellow) Urine Appearance Clear (Clear) Urine pH 7.0 (5.0-8.5) Ur Specific [place] 1.015 (1.000-1.030) Urine Protein 2+ A (Negative) Urine Glucose (UA) Negative (Negative) Imaging CTA chest: Attestation: I have reviewed the pertinent imaging results. Radiologist's impression: Heart and vasculature: Contrast opacification of the pulmonary arterial tree is adequate. No sign of pulmonary embolism. Heart size is normal. Borderline ectasia of the ascending thoracic aorta measuring up to 4.0 cm. Mildly dilated main pulmonary artery measuring up to 3.5 cm. Atherosclerotic calcifications of the aorta and branches. Coronary artery calcifications. Contrast refluxing down the IVC into the hepatic veins. Lungs and pleura: No definite acute pulmonary infiltrate. No suspicious nodules. Mild subsegmental atelectasis. Calcified granulomas. Moderate right pleural fluid collection with split pleura sign extending from the right lung base to the right apex. Trace left pleural effusion. No pneumothorax. Lymph nodes/mediastinum: No pathologic mediastinal, hilar, or axillary adenopathy. Chest wall: No masses. Upper abdomen: No definite acute findings. Stable thick-walled splenic collection measuring up to 10 cm (4/183). Splenic embolization coils. Bones: Compared to 02/08/2023, new compression fracture of the T12 vertebral body with substantial associated height loss that is favored chronic. IMPRESSION: 1. No evidence of pulmonary embolism. 2. Moderate right-sided pleural fluid collection with features suggestive of empyema. 3. Mildly dilated main pulmonary artery measuring up to 3.5 cm is nonspecific but possibly consistent with chronic pulmonary hypertension. 4. Contrast flushing down the IVC into the hepatic veins is nonspecific but possibly consistent with right heart failure. 5. Borderline ascending aortic ectasia measuring 4.0 cm. 6. Compared to 02/08/2023, new compression fracture of the T12 vertebral body with substantial associated height loss that is favored chronic. lumbar spine: Attestation: I have reviewed the pertinent imaging results. Radiologist's impression: Bone demineralization. Compression fractures of the T12 and L4 vertebra with associated loss of vertebral body height has not significantly changed. No radiographic evidence of acute lumbar spine fracture. Multilevel degenerative changes, as before. Coil embolization material in the left abdomen, as before. Surgical clips in the left pelvis. IMPRESSION: T12 and L4 compression fractures appear unchanged. Chest x-ray: Attestation: I have reviewed the pertinent imaging results. Radiologist's impression: Cardiomegaly. Medial right lung apex opacity and right mid to lower lung zone opacity, favored to represent loculated pleural effusion as seen on prior CT exam. The left lung is clear. No pneumothorax. No displaced fractures. CT abdomen/pelvis: Attestation: I have reviewed the pertinent imaging results. Radiologist's impression: Lower chest: Loculated right-sided pleural effusion, stable from prior. Liver: Punctate enhancement in the right hepatic lobe (2/30), may be flash filling hemangioma. Otherwise, no suspicious hepatic lesions identified. Gallbladder and bile ducts: Unremarkable. No stones or inflammation. No biliary dilatation. Pancreas: Unremarkable. No mass or inflammation. Spleen: Stable thick-walled splenic collection, unchanged. Otherwise, spleen is unremarkable. Splenic embolization coils are noted. Adrenal glands: Unremarkable. No nodules. Kidneys: Unremarkable. No suspicious masses, stones, or hydronephrosis. GI tract: Large stool burden. No bowel obstruction. Appendix is not visualized. Vasculature: Abdominal aorta is normal in caliber. Mesenteric arteries are patent. Lymph nodes: No lymphadenopathy. Peritoneum/Abdominal Wall: Postsurgical changes in the left anterior abdominal wall in the region of the pelvis. No sign of mass or infiltration. No free air or significant free fluid. Pelvis: Unremarkable. Bones: Stable near complete compression of the T12 vertebral body. L4 vertebral body demonstrates increased compression compared to the prior exam from June 01 now with mid vertebral height of approximately 1 centimeter, previously 1.6 centimeters. Diffuse demineralization of the visualized bones. Minimal increased retropulsion of the fracture fragment into the spinal canal. IMPRESSION: 1. Interval increase in height loss at the L4 vertebral body now measuring approximately 1 centimeter, previously 1.6 centimeter. Stable T12 compression fracture. 2. Redemonstrated elevated stool burden. 3. Other stable chronic findings.
[2024-07-12 22:45] LABS: Magnesium* 2.8 mg/dL (1.5-2.6)
[2024-07-12 23:02] LABS: Procalcitonin* 2.26 ng/mL (<0.50)
[2024-07-13] VITALS (18 sets, daily range): BP systolic 85–126; BP diastolic 50–82; PULSE 68–86; RESP 16–20; TEMP 36–36.8; O2SAT 90–99
[2024-07-13] MEDS: ACETAMINOPHEN 325 MG TABLET 975 MG PO ×4 (02:16→22:38)
[2024-07-13] MEDS: LIDOCAINE 5% PATCH 1 PATCH TRANSDERMA ×2 (02:16→22:40)
[2024-07-13 06:42] LABS: Hematocrit 32.8 % (37.0-53.0); Hemoglobin* 10.2 gm/dL (13.5-17.5); Mean Corpuscular HGB Conc 31 gm/dL (32-36); Mean Corpuscular Hemoglobin 29 pg (26-34); Mean Corpuscular Volume 94 fL (80-100); Platelet Count* 202 K/uL (140-440); Slide Review Reflex No; White Blood Count* 13.65 K/uL (4.50-11.00)
[2024-07-13 06:52] LABS: Chloride* 97 mmol/L (96-114)
[2024-07-13 06:53] LABS: Potassium* 4.4 mmol/L (3.6-5.1); Sodium* 134 mmol/L (135-149)
[2024-07-13 06:56] LABS: Anion Gap 5 mEq/L (7-15); Blood Urea Nitrogen* 37 mg/dL (7-30); Calcium* 8.4 mg/dL (8.4-10.6); Carbon Dioxide* 32 mmol/L (20-32); Creatinine* 1.5 mg/dL (0.5-1.5); Est. Creatinine Clearance* 35.32; Estimated Glomerular Filt Rate 46 ml/min; Glucose* 108 mg/dL (60-115)
[2024-07-13 07:16] LABS: C Reactive Protein* 11.9 mg/dL (0.5-1.0)
[2024-07-13] MEDS: OMEPRAZOLE 20 MG CAPSULE DR PO (09:02)
[2024-07-13] MEDS: SODIUM CHLORIDE 0.9 % (FLUSH) 10 ML SYRINGE 5 ML IVF ×2 (09:02→21:22)
[2024-07-13] MEDS: ASPIRIN 81 MG TABLET EC PO (09:02)
[2024-07-13] MEDS: DORZOLAMIDE/TIMOLOL 2-0.5% OPHTH 1 DROP EYE-BOTH ×2 (09:02→20:54)
[2024-07-13 10:10] LABS: Troponin I* 0.44 ng/mL (0.01-0.04)
--- NOTE | 2024-07-13 13:31 | PM.IMPN1 ---
Assessment and Plan Assessment and plan (1) Acute hypoxic respiratory failure: Problem comment: Improving Oxygen saturation 81% on room air. Baseline is low 90s BNP 79128 Troponin 1.28 -> 0.98, no chest pain likely in setting of elevated BNP, NAYELY VBG pH 7.366, pCO2 49, PO2 < 30, HC03 28 Imaging without evidence of acute infectious process Procalcitonin ordered. Magnesium ordered CTA chest negative for PE, shows chronic pleural effusion, chronic pleural fluid collection noted. Possible right heart failure reported Continue oxygen supplementation, weaning as able ECHO 07/13, EF 60-65%. mod-severe TR. RT consult for pulmonary support 07/13: Pt's blood pressure was within normal he is not hypotensive anymore, his oxygen requirements went down from 4 to 1 liter/minute this a.m.. He was able to walk around with physical therapist without being short of breath while he was on 1-2 liters/minute. He states that he used some pain killers/opioids and Ativan from his 's medications and this might have caused his hypoxia and hypotension overnight. Status: Acute (2) Hypotension: Problem comment: Suspected in setting of dehydration, misuse of opiates/benzos/muscle relaxants Responding to IVF Will continue small boluses, in setting of acute on chronic fluid overload Discussed possible need for pressors with patient and DIL Hold home antihypertensives 07/13: Pt's blood pressure was within normal he is not hypotensive anymore, his oxygen requirements went down from 4 to 1 liter/minute this a.m.. He was able to walk around with physical therapist without being short of breath while he was on 1-2 liters/minute. He states that he used some pain killers/opioids and Ativan from his 's medications and this might have caused his hypoxia and hypotension overnight. Status: Acute (3) Acute kidney injury: Problem comment: NAYELY improving Creatinine 1.9 on admission history of CKD stage 3 Recently prescribed Lasix and torsemide for peripheral edema - hold Also taking celoxib for chronic pain - hold Avoid nephrotoxic medications Recheck creatinine in the morning following IVF hydration Status: Acute (4) CKD stage 3a, GFR 45-59 ml/min: Status: Acute (5) Dehydration: Problem comment: Recent use of diuretics BUN 32, creatinine 1.9 Gentle IV hydration in setting of fluid overload Status: Acute (6) Weakness: Problem comment: Acute in setting of above PT/OT consults Status: Acute (7) Pleural effusion: Problem comment: Chronic. Trace left pleural effusion per imaging today Also noted on CTA is Moderate right-sided pleural fluid collection with features suggestive of empyema - this is chronic, patient has had 2 outpatient visits with [facility] - POC is monitoring. Sampling was discussed and deferred given risks -reviewing his assistant product manager note at [facility] in July 2023, this is what they think about his pleural effusion: I think this is all a sequelae of a hemothorax, with persistent trapped lung and chronic organized effusion. I think the chance of this being malignancy is extremely low, given the very strong clinical history of fall, ecchymoses, discovery of the effusion, and no change in the effusion for 6 months' time. We discussed potential for followup versus no followup. I am comfortable with no further testing. He is also comfortable with that. We would not otherwise consider decortication. If in the ensuing days or weeks, he decides he would like to have one more followup, I think that is fine. Tyson Garner M.D. at 07/21/2023 Status: Chronic (8) HTN (hypertension): Problem comment: Hold home medications in setting of hypotension Status: Acute (9) Chronic lymphocytic leukemia: Problem comment: History of CLL in remission per [facility] chart Status: Chronic (10) T12 compression fracture: Problem comment: Chronic T12 compression fracture. Per EMR, has been using opiates and most recently prescribed Flexeril Will manage with scheduled Tylenol, lidocaine patch, ice/heat Avoid opiates, muscle relaxers, benzos PT/OT consults Recommended outpatient therapy, consider PM&R Status: Chronic (11) Intentional misuse of medication: Problem comment: Suspected additional cause of conglomeration of symptoms UDS is positive for opiates and benzodiazepines. During initial evaluation, patient denied taking anything other than Flexeril. His DIL questioned him if he was taking his 's hospice medications. We did discuss this, suspects he has been using her morphine, tramadol, Ativan. Had a discussion with patient regarding risks and unfavorable outcomes if he continues to do this, verbalizes understanding Status: Acute (12) Alcohol abuse: Problem comment: Sober since February 2023 following hospitalization Status: Chronic (13) Anxiety: Problem comment: In past, was using alcohol to cope, now using his 's benzos and opiates Outpatient follow up with PCP for further management options Status: Chronic (14) Paroxysmal atrial fibrillation: Problem comment: EKG in the ED shows AFib with RVR, ventricular rate 107 Converted to NSR without chemical or electrical intervention Patient reports palpitations since young adulthood As he has converted to NSR, and in setting of hypotension, will hold beta hugo Fall risk. Discussed anticoagulation and risks. Takes a baby aspirin daily Outpatient follow-up with PCP for further evaluation and management Status: Acute Total Time Spent Total Time Spent: Today I spent 50 minutes seeing the patient, reviewing Expanse and EPIC notes/diagnostics, discussing the care plan with our care time that includes social work, PT/OT, pharmacy, RT, long term and documenting my impressions and plan in the medical record. Subjective Date Seen: 07/13/24 Interval history: Patient was seen and examined at bedside today, he states that he is doing much better today. This morning Verma blood pressure was within normal he is not hypotensive anymore, his oxygen requirements went down from 4 to 1 liter/minute this a.m.. He was able to walk around with physical therapist without being short of breath while he was on 1-2 liters/minute. He states that he used some pain killers/opioids and Ativan from his 's medications and this might have caused his hypoxia and hypotension overnight. Exam Narrative: Exam Narrative: Physical exam GENERAL: Comfortable, no acute distress. Satting 92% on 1 liter/minute oxygen nasal cannula. HEAD AND NECK: Atraumatic, normocephalic CARDIOVASCULAR: RRR. Normal S1, S2. Positive bilateral lower extremity edema. RESPIRATORY: Clear to auscultation B/L. Good air entry B/L. GASTROINTESTINAL: Not distended, not tender to palpation. NEUROLOGY: Alert, awake, oriented X 3. Normal speech. PSYCH: Normal mood, normal affect. Const: Vital Signs, click to edit/add: Vital Signs - 24 hr 07/12/24 14:48 07/12/24 15:00 07/12/24 15:11 Temperature 97.5 F L Pulse Rate 103 H Pulse Rate [Pulse Oximeter] 106 H Respiratory Rate 22 Blood Pressure Blood Pressure [Le ft Arm] Blood Pressure [Ri ght Upper Arm] 91/78 Pulse Oximetry 81 L Oxygen Delivery Me thod Room Air Oxygen Flow Rate 07/12/24 15:30 07/12/24 15:30 07/12/24 15:32 Temperature Pulse Rate 108 H 102 H Pulse Rate [Pulse Oximeter] Respiratory Rate Blood Pressure 83/64 L Blood Pressure [Le ft Arm] Blood Pressure [Ri ght Upper Arm] Pulse Oximetry 90 90 90 Oxygen Delivery Me thod Nasal Cannula Oxygen Flow Rate 4 07/12/24 15:45 07/12/24 15:47 07/12/24 16:00 Temperature Pulse Rate 113 H 108 H 114 H Pulse Rate [Pulse Oximeter] Respiratory Rate 20 Blood Pressure 89/76 L Blood Pressure [Le ft Arm] Blood Pressure [Ri ght Upper Arm] Pulse Oximetry 90 90 90 Oxygen Delivery Me thod Oxygen Flow Rate 07/12/24 16:01 07/12/24 16:02 07/12/24 16:10 Temperature Pulse Rate 120 H 119 H Pulse Rate [Pulse Oximeter] Respiratory Rate 17 Blood Pressure 83/69 L Blood Pressure [Le ft Arm] Blood Pressure [Ri ght Upper Arm] Pulse Oximetry 91 89 94 Oxygen Delivery Me thod Nasal Cannula Oxygen Flow Rate 4 07/12/24 16:33 07/12/24 16:34 07/12/24 16:45 Temperature Pulse Rate 116 H Pulse Rate [Pulse Oximeter] Respiratory Rate 12 21 20 Blood Pressure 108/65 Blood Pressure [Le ft Arm] Blood Pressure [Ri ght Upper Arm] Pulse Oximetry 93 Oxygen Delivery Me thod Oxygen Flow Rate 07/12/24 16:47 07/12/24 16:48 07/12/24 17:00 Temperature Pulse Rate 105 H 101 H 117 H Pulse Rate [Pulse Oximeter] Respiratory Rate 23 Blood Pressure 118/94 H Blood Pressure [Le ft Arm] Blood Pressure [Ri ght Upper Arm] Pulse Oximetry 93 90 Oxygen Delivery Me thod Nasal Cannula Oxygen Flow Rate 4 07/12/24 17:02 07/12/24 17:15 07/12/24 17:16 Temperature Pulse Rate 113 H 98 97 Pulse Rate [Pulse Oximeter] Respiratory Rate 15 Blood Pressure 92/67 92/68 Blood Pressure [Le ft Arm] Blood Pressure [Ri ght Upper Arm] Pulse Oximetry 90 93 92 Oxygen Delivery Me thod Nasal Cannula Oxygen Flow Rate 4 07/12/24 17:17 07/12/24 17:30 07/12/24 17:32 Temperature Pulse Rate 99 109 H 102 H Pulse Rate [Pulse Oximeter] Respiratory Rate 5 L Blood Pressure 85/73 L Blood Pressure [Le ft Arm] Blood Pressure [Ri ght Upper Arm] Pulse Oximetry 89 93 92 Oxygen Delivery Me thod Oxygen Flow Rate 07/12/24 17:45 07/12/24 17:46 07/12/24 17:47 Temperature Pulse Rate 96 106 H 102 H Pulse Rate [Pulse Oximeter] Respiratory Rate 18 18 23 Blood Pressure 86/63 L Blood Pressure [Le ft Arm] Blood Pressure [Ri ght Upper Arm] Pulse Oximetry 92 91 93 Oxygen Delivery Me thod Oxygen Flow Rate 07/12/24 18:13 07/12/24 18:19 07/12/24 18:24 Temperature Pulse Rate 99 100 Pulse Rate [Pulse Oximeter] Respiratory Rate 16 17 Blood Pressure 78/46 L 77/58 L Blood Pressure [Le ft Arm] Blood Pressure [Ri ght Upper Arm] Pulse Oximetry 92 93 Oxygen Delivery Me thod Oxygen Flow Rate 07/12/24 18:30 07/12/24 18:32 07/12/24 18:33 Temperature Pulse Rate 96 95 91 Pulse Rate [Pulse Oximeter] Respiratory Rate 9 L Blood Pressure Blood Pressure [Le ft Arm] Blood Pressure [Ri ght Upper Arm] Pulse Oximetry 94 93 93 Oxygen Delivery Me thod Oxygen Flow Rate 07/12/24 18:38 07/12/24 18:38 07/12/24 18:45 Temperature Pulse Rate 93 90 Pulse Rate [Pulse Oximeter] Respiratory Rate 15 Blood Pressure 92/69 Blood Pressure [Le ft Arm] Blood Pressure [Ri ght Upper Arm] 92/69 Pulse Oximetry 93 92 Oxygen Delivery Me thod Oxygen Flow Rate 07/12/24 18:46 07/12/24 18:47 07/12/24 19:00 Temperature Pulse Rate 97 94 94 Pulse Rate [Pulse Oximeter] Respiratory Rate 18 19 16 Blood Pressure 87/63 L Blood Pressure [Le ft Arm] Blood Pressure [Ri ght Upper Arm] Pulse Oximetry 93 93 92 Oxygen Delivery Me thod Oxygen Flow Rate 07/12/24 19:01 07/12/24 19:15 07/12/24 19:16 Temperature Pulse Rate 90 89 98 Pulse Rate [Pulse Oximeter] Respiratory Rate 18 Blood Pressure 89/66 L 88/58 L Blood Pressure [Le ft Arm] Blood Pressure [Ri ght Upper Arm] Pulse Oximetry 93 91 93 Oxygen Delivery Me thod Oxygen Flow Rate 07/12/24 19:30 07/12/24 19:32 07/12/24 19:33 Temperature Pulse Rate 71 69 69 Pulse Rate [Pulse Oximeter] Respiratory Rate 25 H 22 Blood Pressure 102/66 Blood Pressure [Le ft Arm] Blood Pressure [Ri ght Upper Arm] Pulse Oximetry 91 93 92 Oxygen Delivery Me thod Oxygen Flow Rate 07/12/24 19:47 07/12/24 20:02 07/12/24 20:15 Temperature Pulse Rate 73 Pulse Rate [Pulse Oximeter] Respiratory Rate 14 18 20 Blood Pressure 87/72 L 119/68 Blood Pressure [Le ft Arm] Blood Pressure [Ri ght Upper Arm] Pulse Oximetry 92 Oxygen Delivery Me thod Oxygen Flow Rate 07/12/24 20:17 07/12/24 20:32 07/12/24 20:45 Temperature Pulse Rate 73 Pulse Rate [Pulse Oximeter] Respiratory Rate 25 H 17 21 Blood Pressure 91/63 96/67 Blood Pressure [Le ft Arm] Blood Pressure [Ri ght Upper Arm] Pulse Oximetry 83 L Oxygen Delivery Me thod Oxygen Flow Rate 07/12/24 20:47 07/12/24 21:47 07/12/24 22:07 Temperature 97.4 F L Pulse Rate Pulse Rate [Pulse Oximeter] 69 Respiratory Rate 22 16 16 Blood Pressure 91/66 Blood Pressure [Le ft Arm] 98/63 Blood Pressure [Ri ght Upper Arm] Pulse Oximetry 92 92 Oxygen Delivery Me thod Nasal Cannula Nasal Cannula Oxygen Flow Rate 4 4 07/13/24 00:00 07/13/24 01:05 07/13/24 01:59 Temperature 98 F Pulse Rate 71 Pulse Rate [Pulse Oximeter] 71 Respiratory Rate 20 Blood Pressure Blood Pressure [Le ft Arm] 91/61 Blood Pressure [Ri ght Upper Arm] Pulse Oximetry 97 97 Oxygen Delivery Me thod Nasal Cannula Oxygen Flow Rate 4 07/13/24 01:59 07/13/24 02:30 07/13/24 04:15 Temperature 97.4 F L 96.8 F L Pulse Rate Pulse Rate [Pulse Oximeter] 78 70 Respiratory Rate 20 18 18 Blood Pressure Blood Pressure [Le ft Arm] 85/54 L 97/56 L Blood Pressure [Ri ght Upper Arm] Pulse Oximetry 97 97 96 Oxygen Delivery Me thod Nasal Cannula Nasal Cannula Nasal Cannula Oxygen Flow Rate 4 4 4 07/13/24 06:00 07/13/24 06:39 07/13/24 06:39 Temperature 97.4 F L 97.6 F Pulse Rate 69 Pulse Rate [Pulse Oximeter] 68 69 Respiratory Rate 18 18 Blood Pressure Blood Pressure [Le ft Arm] 92/56 L 92/56 L Blood Pressure [Ri ght Upper Arm] Pulse Oximetry 97 95 Oxygen Delivery Me thod Nasal Cannula Nasal Cannula Oxygen Flow Rate 4 4 07/13/24 07:27 07/13/24 07:55 07/13/24 07:55 Temperature 97.6 F Pulse Rate 69 Pulse Rate [Pulse Oximeter] 73 Respiratory Rate 16 Blood Pressure Blood Pressure [Le ft Arm] 85/50 L Blood Pressure [Ri ght Upper Arm] Pulse Oximetry 99 99 Oxygen Delivery Me thod Nasal Cannula Oxygen Flow Rate 4 07/13/24 07:55 07/13/24 08:05 07/13/24 08:15 Temperature Pulse Rate Pulse Rate [Pulse Oximeter] Respiratory Rate 16 Blood Pressure Blood Pressure [Le ft Arm] Blood Pressure [Ri ght Upper Arm] Pulse Oximetry 99 98 96 Oxygen Delivery Me thod Nasal Cannula Nasal Cannula Nasal Cannula Oxygen Flow Rate 4 3 2 07/13/24 09:04 07/13/24 10:20 07/13/24 10:45 Temperature 97.8 F Pulse Rate Pulse Rate [Pulse Oximeter] 73 74 Respiratory Rate 16 16 Blood Pressure Blood Pressure [Le ft Arm] 92/60 108/73 Blood Pressure [Ri ght Upper Arm] Pulse Oximetry 94 90 92 Oxygen Delivery Me thod Nasal Cannula Nasal Cannula Nasal Cannula Oxygen Flow Rate 2 1 1 07/13/24 12:05 Temperature Pulse Rate Pulse Rate [Pulse Oximeter] 72 Respiratory Rate 16 Blood Pressure Blood Pressure [Le ft Arm] 126/74 Blood Pressure [Ri ght Upper Arm] Pulse Oximetry 92 Oxygen Delivery Me thod Nasal Cannula Oxygen Flow Rate 1 Labs Labs: Laboratory Results - last 24 hr 07/12/24 07/12/24 07/12/24 15:25 15:40 16:45 WBC 15.78 H RBC 3.87 L Hgb 11.3 L Hct 35.9 L MCV 93 MCH 29 MCHC 32 RDW Coeff of Jocy 13.8 Plt Count 239 Neut % (Auto) 60.5 Lymph % (Auto) 35.6 [place] % (Auto) 3.2 Eos % (Auto) 0.1 Baso % (Auto) 0.2 Neut # (Auto) 9.50 H Lymph # (Auto) 5.60 H [place] # (Auto) 0.50 Eos # (Auto) 0.00 Baso # (Auto) 0.00 Abs Immat Gran (auto) 0.10 Imm/Tot Granulo (auto) 0.4 INR 1.34 H APTT 32 VBG pH 7.366 VBG pCO2 49 VBG pO2 < 30.1 VBG HCO3 28 Sodium 133 L Potassium 5.0 Chloride 95 L Carbon Dioxide 28 Anion Gap 10 BUN 32 H Creatinine 1.9 H Estimated Creat Clear 25.96 Estimated GFR 35 Glucose 138 H Lactate 2.6 H Calcium 9.1 Magnesium 2.8 H Troponin I 1.28 H* C-Reactive Protein 8.5 H NT-Pro-B Natriuret Pep 22244 H Procalcitonin 2.26 H Urine Color Yellow Urine Appearance Clear Urine pH 7.0 Ur Specific Hill[place] 1.015 Urine Protein 2+ A Urine Glucose (UA) Negative Urine Ketones Negative Urine Blood 1+ A Urine Nitrite Negative Urine Bilirubin Negative Urine Urobilinogen 0.2 Ur Leukocyte Esterase Negative Urine RBC 2-5 A Urine WBC 0-2 Ur Squamous Epith Cells None Urine Bacteria Few A Urine Opiates Screen POSITIVE A Ur Oxycodone Screen Negative Urine Methadone Screen Negative Ur Barbiturates Screen Negative U Tricyclic Antidepress Negative Ur Phencyclidine Scrn Negative Ur Amphetamines Screen Negative U Methamphetamines Scrn Negative U Benzodiazepines Scrn POSITIVE A Urine Cocaine Screen Negative U Marijuana (THC) Screen Negative Ur Drug Screen Comment See Note Ethyl Alcohol < 0.01 SARS-CoV-2 (PCR) Negative SARS-CoV-2 Influenza Type A (PCR) Negative PCR FLU A Influenza Type B (PCR) Negative PCR FLU B RSV (PCR) Negative PCR RSV Lab Acknowledgement 07/12/24 07/12/24 07/12/24 17:07 19:55 20:16 WBC RBC Hgb Hct MCV MCH MCHC RDW Coeff of Jocy Plt Count Neut % (Auto) Lymph % (Auto) [place] % (Auto) Eos % (Auto) Baso % (Auto) Neut # (Auto) Lymph # (Auto) [place] # (Auto) Eos # (Auto) Baso # (Auto) Abs Immat Gran (auto) Imm/Tot Granulo (auto) INR APTT VBG pH VBG pCO2 VBG pO2 VBG HCO3 Sodium Potassium Chloride Carbon Dioxide Anion Gap BUN Creatinine Estimated Creat Clear Estimated GFR Glucose Lactate 1.2 Calcium Magnesium Troponin I 0.98 H* C-Reactive Protein NT-Pro-B Natriuret Pep Procalcitonin Urine Color Urine Appearance Urine pH Ur Specific [place] Urine Protein Urine Glucose (UA) Urine Ketones Urine Blood Urine Nitrite Urine Bilirubin Urine Urobilinogen Ur Leukocyte Esterase Urine RBC Urine WBC Ur Squamous Epith Cells Urine Bacteria Urine Opiates Screen Ur Oxycodone Screen Urine Methadone Screen Ur Barbiturates Screen U Tricyclic Antidepress Ur Phencyclidine Scrn Ur Amphetamines Screen U Methamphetamines Scrn U Benzodiazepines Scrn Urine Cocaine Screen U Marijuana (THC) Screen Ur Drug Screen Comment Ethyl Alcohol SARS-CoV-2 (PCR) Influenza Type A (PCR) Influenza Type B (PCR) RSV (PCR) Lab Acknowledgement Test Added 07/12/24 07/13/24 07/13/24 22:25 06:25 09:36 WBC 13.65 H RBC 3.50 L Hgb 10.2 L Hct 32.8 L MCV 94 MCH 29 MCHC 31 L RDW Coeff of Jocy Plt Count 202 Neut % (Auto) Lymph % (Auto) [place] % (Auto) Eos % (Auto) Baso % (Auto) Neut # (Auto) Lymph # (Auto) [place] # (Auto) Eos # (Auto) Baso # (Auto) Abs Immat Gran (auto) Imm/Tot Granulo (auto) INR APTT VBG pH VBG pCO2 VBG pO2 VBG HCO3 Sodium 134 L Potassium 4.4 Chloride 97 Carbon Dioxide 32 Anion Gap 5 L BUN 37 H Creatinine 1.5 Estimated Creat Clear 35.32 Estimated GFR 46 Glucose 108 Lactate Calcium 8.4 Magnesium Troponin I 0.44 H* C-Reactive Protein 11.9 H NT-Pro-B Natriuret Pep Procalcitonin Urine Color Urine Appearance Urine pH Ur Specific [place] Urine Protein Urine Glucose (UA) Urine Ketones Urine Blood Urine Nitrite Urine Bilirubin Urine Urobilinogen Ur Leukocyte Esterase Urine RBC Urine WBC Ur Squamous Epith Cells Urine Bacteria Urine Opiates Screen Ur Oxycodone Screen Urine Methadone Screen Ur Barbiturates Screen U Tricyclic Antidepress Ur Phencyclidine Scrn Ur Amphetamines Screen U Methamphetamines Scrn U Benzodiazepines Scrn Urine Cocaine Screen U Marijuana (THC) Screen Ur Drug Screen Comment Ethyl Alcohol SARS-CoV-2 (PCR) Influenza Type A (PCR) Influenza Type B (PCR) RSV (PCR) Lab Acknowledgement Test Added Test Added
[2024-07-13] MEDS: polyethylene glycoL 3350 17 GM PACK PO (13:37)
[2024-07-13] MEDS: SENNOSIDES/DOCUSATE TABLET 1 TAB PO (13:38)
--- NOTE | 2024-07-13 15:11 | RESP.RT ---
Pt down to 1L at this time, maintaining adequate saturations. He does become hypoxic off of oxygen and with activity into low 80s. Will follow tomorrow to see if there is any improvement, otherwise we will consider qualifying for home oxygen. BBS decreased but clear. Encourage ambulation and sitting in chair.
[2024-07-13] MEDS: LOVASTATIN 20 MG TABLET PO (20:50)
[2024-07-13] MEDS: MIRTAZAPINE 15 MG TABLET 7.5 MG PO (20:51)
[2024-07-13] MEDS: LATANOPROST 0.005% OPHTH 1 DROP EYE-BOTH (20:54)
[2024-07-13] MEDS: ENOXAPARIN 40 MG/0.4 ML INJ SUBCUT (20:54)
--- NOTE | 2024-07-13 22:43 | PC.NURSE ---
Shift Note 15-23: Pt friendly and cooperative, able to verbalize his needs. VS WNL and LS COA. ECHO today unremarkable. [id number] Summer updated via telephone. Pt verbalizes his low back pain has been much improved but also began c/o increased low back and abdominal discomfort near HS. Pt encouraged to ambulate and reluctantly walked with SBA from his room in CCU1 around the nurses station back to his room about 200ft. Pt showed signs of increased work of breathing and dyspnea upon return and SpO2= 78%. Pt O2 increased to 3L via NC for several minutes until he recovered to 93%. At rest he requires 1L/O2 via NC. Pt drank 125mls of a chocolate ensure mixed with vanilla icecream at HS. Lidocaine patch applied at 2230 to right lower back. Pt denies ice or heat at this time.
[2024-07-14] VITALS (9 sets, daily range): BP systolic 116–144; BP diastolic 76–88; PULSE 70–90; RESP 16–20; TEMP 36.6–36.8; O2SAT 92–95
[2024-07-14] MEDS: ACETAMINOPHEN 325 MG TABLET 975 MG PO ×3 (04:11→22:18)
--- NOTE | 2024-07-14 06:01 | PC.NURSE ---
End of shift report [id number]: VSS. Pt was on 1 L O2 overnight via NC to keep O2 sats above 90% per MD order. Afebrile. Rates back pain a?04/17. Lidocaine patch is present on right lower back. Bed alarm on, call light within reach.?
[2024-07-14 06:50] LABS: Chloride* 100 mmol/L (96-114); Potassium* 3.8 mmol/L (3.6-5.1); Sodium* 136 mmol/L (135-149)
[2024-07-14 06:53] LABS: Anion Gap 4 mEq/L (7-15); Blood Urea Nitrogen* 26 mg/dL (7-30); Carbon Dioxide* 32 mmol/L (20-32); Creatinine* 0.8 mg/dL (0.5-1.5); Est. Creatinine Clearance* 52.34; Estimated Glomerular Filt Rate 88 ml/min
[2024-07-14 06:54] LABS: Calcium* 8.2 mg/dL (8.4-10.6); Glucose* 98 mg/dL (60-115)
[2024-07-14 06:58] LABS: Hematocrit 31.7 % (37.0-53.0); Hemoglobin* 10.1 gm/dL (13.5-17.5); Mean Corpuscular HGB Conc 32 gm/dL (32-36); Mean Corpuscular Hemoglobin 30 pg (26-34); Mean Corpuscular Volume 93 fL (80-100); Platelet Count* 197 K/uL (140-440); White Blood Count* 10.68 K/uL (4.50-11.00)
[2024-07-14 07:02] LABS: Slide Review Reflex No
[2024-07-14] MEDS: SODIUM CHLORIDE 0.9 % (FLUSH) 10 ML SYRINGE 5 ML IVF ×2 (09:18→21:32)
[2024-07-14] MEDS: ASPIRIN 81 MG TABLET EC PO (09:18)
[2024-07-14] MEDS: DORZOLAMIDE/TIMOLOL 2-0.5% OPHTH 1 DROP EYE-BOTH ×4 (09:18→21:39)
[2024-07-14] MEDS: OMEPRAZOLE 20 MG CAPSULE DR PO (09:18)
[2024-07-14] MEDS: LOSARTAN POTASSIUM 50 MG TABLET PO (11:04)
[2024-07-14] MEDS: TORSEMIDE 20 MG TABLET PO (11:05)
--- NOTE | 2024-07-14 13:39 | PM.IMPN1 ---
Assessment and Plan Assessment and plan (1) Acute hypoxic respiratory failure: Problem comment: Patient is had hypoxia with O2 sat of 81% on room air. On supplemental oxygen, 1 L per nasal cannula, he remains in the low 90s. He desaturates into the 80s with activity even with supplemental oxygen. Cause for the hypoxia is unclear. He is not particularly dyspneic suggesting chronicity to this. He has a moderate pleural effusion in the right upper and lower lobes which has been chronic. He has pulmonary hypertension and moderate to severe tricuspid regurgitation. No evidence for COPD. No obvious pulmonary edema. Likely will need chronic oxygen supplementation. Status: Acute (2) Pleural effusion: Problem comment: Chronic. Trace left pleural effusion per imaging today Also noted on CTA is Moderate right-sided pleural fluid collection with features suggestive of empyema - this is chronic, patient has had 2 outpatient visits with [facility] - POC is monitoring. Sampling was discussed and deferred given risks -reviewing his cutter inspector note at [facility] in July 2023, this is what they think about his pleural effusion: I think this is all a sequelae of a hemothorax, with persistent trapped lung and chronic organized effusion. I think the chance of this being malignancy is extremely low, given the very strong clinical history of fall, ecchymoses, discovery of the effusion, and no change in the effusion for 6 months' time. We discussed potential for followup versus no followup. I am comfortable with no further testing. He is also comfortable with that. We would not otherwise consider decortication. If in the ensuing days or weeks, he decides he would like to have one more followup, I think that is fine. Tyson Garner M.D. at 07/21/2023 Status: Chronic (3) Acute kidney injury: Problem comment: NAYELY improving Creatinine 1.9 on admission history of CKD stage 3. On July 14 creatinine is 0.8. Also taking celoxib for chronic pain - hold Avoid nephrotoxic medications Recheck creatinine in the morning following IVF hydration Status: Acute (4) Hypotension: Problem comment: Concern for sepsis in the setting of elevated lactate, elevated white count, tachycardia. Resolved with fluid resuscitation and holding blood pressure medicines. Resume blood pressure medications. Status: Acute (5) Chronic lymphocytic leukemia: Problem comment: History of CLL in remission per [facility] chart Status: Chronic (6) Anxiety: Problem comment: In past, was using alcohol to cope, now using his 's benzos and opiates. Outpatient follow up with PCP for further management options. Recommend starting trial of Lexapro. Status: Chronic (7) Intentional misuse of medication: Problem comment: Patient acknowledges recently taking his 's morphine an alprazolam for management of his pain and anxiety. He understands that he should not be doing this and in his case these medications are likely causing more harm than good. Status: Acute (8) Non-STEMI (non-ST elevated myocardial infarction): Problem comment: Elevated troponin of 1.28 on admission now trending down to 0.44. Nondiagnostic T-wave flattening. No definite ischemic changes on EKG. Possibly type 2 stressed induced myocardial ischemia. Echo as noted. Status: Acute (9) Elevated lactic acid level: Problem comment: Resolved with fluid resuscitation. No antibiotics Status: Acute (10) Elevated white blood cell count: Problem comment: Improved Status: Acute (11) Tachycardia: Problem comment: Concern for sepsis in the setting of hypotension, elevated lactate elevated white count. No definite site of infection. Resolved with fluid resuscitation Status: Acute (12) Pulmonary hypertension: Problem comment: Echocardiogram on 07/13/2024 shows right ventricular pressure of 36 mmHg plus right atrial pressure. Also has moderate to severe tricuspid regurgitation. Status: Acute (13) Tricuspid regurgitation: Problem comment: Moderate to severe on echocardiogram from 07/13/2024. Right ventricular pressure of 36 mmHg plus right atrial pressure. Status: Acute (14) T12 compression fracture: Problem comment: Chronic T12 compression fracture. Per EMR, has been using opiates and most recently prescribed Flexeril Will manage with scheduled Tylenol, lidocaine patch, ice/heat Avoid opiates, muscle relaxers, benzos PT/OT consults Status: Chronic (15) Lower extremity edema: Problem comment: Suspects this is due to right heart failure. Also on amlodipine which is likely contributing. Stop amlodipine. Continue diuretic. Lower extremity compression. Status: Acute (16) Anemia: Problem comment: Chronic, unknown cause Status: Acute (17) Discharge planning issues: Problem comment: Patient lives independently with his who has dementia and is in hospice. He is the caregiver for her. He has been struggling in this role recently. They have hired in-home caregivers to help out temporarily. Status: Acute (18) Weakness: Problem comment: Acute on chronic. PT/OT consults Status: Acute Plan Continue in hospital for evaluation management of hypoxic respiratory failure, non-STEMI, NAYELY, disabilities. Total Time Spent Total Time Spent: Total time spent today is 60 minutes in coordination of care, discussion with patient, son and [id number] about ongoing evaluation and management of above medical problems and discharge planning Subjective Date Seen: 07/14/24 Interval history: Butch Musa is a 84 year old male past medical history significant for CLL, chronic peripheral edema, pleural effusion, hypertension, T12 compression fracture, anxiety, alcohol abuse sober since February 2023 is admitted to critical care from the ED in setting of acute hypoxic respiratory failure, hypotension, dehydration. Patient is seen with his daughter in-law, Summer, at bedside. Patient reports increasing weakness over the last couple of days. He did fall 2 days ago, landing on his back. He has a T12 compression fracture from February 2023 following a fall. Also an L4 compression fracture. History of recurrent falls. He has a walker at home that he does not regularly use. Denies headache or dizziness. Denies chest pain. Does report feeling his heart racing which he tells me occurs intermittently and has done so since young adulthood. Does not necessarily feel short of breath. He does get dyspnea with activity and also gets dyspnea when he is anxious. Denies recent fevers or chills. Denies abdominal pain, nausea, vomiting. No change in his stools. No change in urination. Has been taking diuretics but has not had increased urine output. No history of heart disease. He has a very remote history of minimal smoking without a diagnosis of COPD, asthma or other chronic lung disease. He was identified with small right upper and lower lobe pleural effusions after a fall in February 2023. These were thought to be possibly an empyema. 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 He has been followed up by [facility] for these findings and he tells me that they have recommended against drainage or biopsy. Several recent changes in medication. He had been taking Lasix with no response. Currently taking torsemide. Tells me he has not taken both of them on the same day, having only had 3 doses of Lasix to take. He was recently prescribed Flexeril and celoxib for his chronic back pain. On admission he denied taking other medications for his pain but then acknowledges that he has taken some of his 's Xanax and morphine for his pain and anxiety. Patient lives in his own home with his who is currently on hospice. He is the primary care provider. While he is in the hospital the family has arranged for outpatient home health support for his . Reports being sober since February 2023, his last hospitalization. Nonsmoker. PCP is Dr. Joseph though he is changing providers to Dr. Pollock at [facility]. His son, David, is his POA. His DIL, Summer, is his point of contact for this stay. He underwent echocardiogram on July 13 showing normal LV size and function, moderate right ventricular enlargement with preserved function, moderate to severe tricuspid regurgitation and a dilated inferior vena cava with decreased respiratory size variation. He continues to require 1 L of oxygen per nasal cannula at rest and even on 3 L he would desaturate into the 80s with activity. Exam Narrative: Exam Narrative: He is alert and appears in no distress. He gives his own history. He is oriented to his circumstances. He has fairly good details of recent events. Respirations with diminished breath sounds throughout. A little more prominent at the right base than the left. No marked wheezing. Occasional crackles. Cardiovascular: S1, S2, regular rate and rhythm. Abdomen: Bowel sounds active. Abdomen is soft without tenderness or mass. Extremities with trace edema. Const: Vital Signs, click to edit/add: Vital Signs - 24 hr 07/13/24 15:00 07/13/24 15:07/13/24 20:38 Temperature 98.3 F Pulse Rate 80 Pulse Rate [Apical ] Pulse Rate [Pulse Oximeter] 86 86 Respiratory Rate 18 18 Blood Pressure [Le ft Arm] 123/82 Pulse Oximetry 91 Oxygen Delivery Me thod Nasal Cannula Oxygen Flow Rate 1 07/13/24 23:00 07/13/24 23:00 07/14/24 02:00 Temperature 97.8 F Pulse Rate 70 Pulse Rate [Apical ] Pulse Rate [Pulse Oximeter] 76 76 Respiratory Rate 16 16 Blood Pressure [Le ft Arm] 121/70 Pulse Oximetry 92 Oxygen Delivery Me thod Nasal Cannula Oxygen Flow Rate 1 07/14/24 03:00 07/14/24 07:26 07/14/24 08:01 Temperature 98.2 F Pulse Rate 77 Pulse Rate [Apical ] Pulse Rate [Pulse Oximeter] 77 Respiratory Rate 18 Blood Pressure [Le ft Arm] 116/76 Pulse Oximetry 94 93 Oxygen Delivery Me thod Nasal Cannula Oxygen Flow Rate 1 07/14/24 08:01 07/14/24 08:01 07/14/24 11:00 Temperature 98.1 F 97.8 F Pulse Rate Pulse Rate [Apical ] 88 81 Pulse Rate [Pulse Oximeter] Respiratory Rate 18 18 16 Blood Pressure [Le ft Arm] 144/88 H 128/84 Pulse Oximetry 93 93 95 Oxygen Delivery Me thod Nasal Cannula Nasal Cannula Nasal Cannula Oxygen Flow Rate 1 1 1 Documenting provider has reviewed patient's vital signs: yes Labs Labs: Laboratory Results - last 24 hr 07/14/24 06:00 WBC 10.68 RBC 3.40 L Hgb 10.1 L Hct 31.7 L MCV 93 MCH 30 MCHC 32 Plt Count 197 Sodium 136 Potassium 3.8 Chloride 100 Carbon Dioxide 32 Anion Gap 4 L BUN 26 Creatinine 0.8 Estimated Creat Clear 52.34 Estimated GFR 88 Glucose 98 Calcium 8.2 L
[2024-07-14] MEDS: ESCITALOPRAM 10 MG TABLET PO (15:32)
--- NOTE | 2024-07-14 16:49 | PC.SOCIAL ---
Addendum entered by CAROL Conde 07/21/24 10:00: Discharge planning/late entry: [facility] confirmation of submission report number #[id number]. Social work to follow-up as needed. Original Note: Discharge planning: painting trades worker met with pt today several times and spoke to pt's [id number], Merry, via phone. Pt was initially recommended for short-term rehab by PT, but does not want to do that. painting trades worker talked to the pt about short-term rehab and he reiterated that he did not want to do short-term rehab and would rather return home with his and have home care PT. Pt will be staying in the hospital again tonight. When this worker spoke to pt's [id number] via phone she shared that pt's is on hospice with [facility] and that the pt has been his 's main stone banker. Merry stated that she has hired 31/08 sales expert home theater care through [facility] to care for the pt's . Pt's [id number] stated that she wasn't sure if [facility] would be able to also provide care for the pt if needed or if it would cost extra. Merry said she could ask the agency this weekend when she talks to them and let this worker know. Pt may be fine with just home care services, but it doesn't hurt for the [id number] to inquire with [facility]. Pt also admitted to several providers at [facility] earlier this week that he took his 's hospice medication which reflected in his urine/toxicology report here at the hospital. Due to this child welfare social worker being a mandated neon light installer, this worker did file a [facility] report with [facility] for the pt's due to this and also notified Bhavya at [facility] out of [place] #[phone]. Social work to follow-up as needed.
[2024-07-14] MEDS: MIRTAZAPINE 15 MG TABLET 7.5 MG PO (17:40)
[2024-07-14] MEDS: ENOXAPARIN 40 MG/0.4 ML INJ SUBCUT (21:32)
[2024-07-14] MEDS: LOVASTATIN 20 MG TABLET PO (21:33)
[2024-07-14] MEDS: LATANOPROST 0.005% OPHTH 1 DROP EYE-BOTH (21:35)
[2024-07-14] MEDS: LIDOCAINE 5% PATCH 1 PATCH TRANSDERMA (22:19)
[2024-07-15] VITALS (8 sets, daily range): BP systolic 143–151; BP diastolic 86–91; PULSE 63–89; RESP 18; TEMP 36.6–36.9; O2SAT 90–98
[2024-07-15] MEDS: ACETAMINOPHEN 325 MG TABLET 975 MG PO (04:17)
--- NOTE | 2024-07-15 06:32 | PC.NURSE ---
End of shift report [id number]: VSS. Pt is on 1 L O2 via nasal cannula to maintain O2 sats above 90% per MD orders. Afebrile. Rates pain from a 2-3/10, pt verbalizes pain is tolerable; blurb writer encouraged relaxation strategies. Pt ambulates SBA with gait belt and walker. Lidocaine patch is present on left lower back. Pt had 2 BMs this shift. Bed alarm on, call light within reach.?
[2024-07-15 06:39] LABS: Hematocrit 36.6 % (37.0-53.0); Hemoglobin* 11.7 gm/dL (13.5-17.5); Mean Corpuscular HGB Conc 32 gm/dL (32-36); Mean Corpuscular Hemoglobin 30 pg (26-34); Mean Corpuscular Volume 93 fL (80-100); Platelet Count* 236 K/uL (140-440); Red Blood Count 3.95 m/uL (4.30-5.90); White Blood Count* 10.68 K/uL (4.50-11.00)
[2024-07-15 06:40] LABS: Slide Review Reflex No
[2024-07-15 06:49] LABS: Chloride* 99 mmol/L (96-114); Potassium* 3.8 mmol/L (3.6-5.1); Sodium* 136 mmol/L (135-149)
[2024-07-15 06:52] LABS: Blood Urea Nitrogen* 21 mg/dL (7-30); Creatinine* 0.8 mg/dL (0.5-1.5); Est. Creatinine Clearance* 49.44; Estimated Glomerular Filt Rate 88 ml/min
[2024-07-15 06:53] LABS: Anion Gap 5 mEq/L (7-15); Calcium* 8.3 mg/dL (8.4-10.6); Carbon Dioxide* 32 mmol/L (20-32); Glucose* 96 mg/dL (60-115)
[2024-07-15 06:55] LABS: C Reactive Protein* 3.1 mg/dL (0.5-1.0)
[2024-07-15] MEDS: TORSEMIDE 20 MG TABLET PO (07:34)
[2024-07-15] MEDS: OMEPRAZOLE 20 MG CAPSULE DR PO (07:34)
[2024-07-15] MEDS: LOSARTAN POTASSIUM 50 MG TABLET PO (09:37)
[2024-07-15] MEDS: ESCITALOPRAM 10 MG TABLET PO (09:38)
[2024-07-15] MEDS: ASPIRIN 81 MG TABLET EC PO (09:38)
[2024-07-15] MEDS: SODIUM CHLORIDE 0.9 % (FLUSH) 10 ML SYRINGE 5 ML IVF (09:39)
--- NOTE | 2024-07-15 12:09 | RESP.RT ---
Pt seen for possible home oxygen qualification. Sitting in bed on RA, SPO2 94-96% PT desaturates to 90% with activity. However he immediately recovers back to 92%. Pt with strong dry cough on demand. BBS clear, and diminished in bases. Nursing notified that pt does not qualify for oxygen at this time.
--- NOTE | 2024-07-15 14:43 | PC.NURSE ---
Addendum entered by Natalee Arias RN 07/15/24 14:56: DC to home @ 1420. Original Note: Pt cooperative with cares. Up with SBA due to morning O2 needs. Pt up in chair and sats warranted trial of RA, able to tolerate O2 above 90%. RT assessed ambulation & O2 and to determine if O2 was needed at DC. RT states pt does not meet parameters for home O2. IV DC'd x2, cath tips intact. DC instructions given to family member and pt verbally and in writing. DC to home @1440.
--- NOTE | 2024-07-15 16:24 | P.DS_ITS ---
DS: Providers Provider Date Seen: 07/15/24 Date of admission: 07/12/24 22:25 Primary care physician: Sebastien Pollock MD Admitting Clinician: Renee Nunez MD Attending Physician on discharge: Ralf Hawikns MD Date of Discharge: 07/15/24 DS: Diagnosis Discharge Diagnosis (1) Acute hypoxic respiratory failure: Status: Acute Problem details: Patient is had hypoxia with O2 sat of 81% on room air. On supplemental oxygen, 1 L per nasal cannula, he remains in the low 90s. He desaturates into the 80s with activity even with supplemental oxygen. Cause for the hypoxia is unclear. He is not particularly dyspneic suggesting chronicity to this. He has a moderate pleural effusion in the right upper and lower lobes which has been chronic. He has pulmonary hypertension and moderate to severe tricuspid regurgitation. No evidence for COPD. No obvious pulmonary edema. On the day of discharge evaluation showed that he did not require supplemental oxygen. On the day of discharge his O2 sats were in the low 90s at rest and did drop to 88% briefly when he was walking. He was not dyspneic and as previously discussed he did not 1 oxygen at home and was felt that it would be a risk for him with impaired mobility to manage his oxygen at home. (2) Pulmonary hypertension: Status: Acute Problem details: Echocardiogram on 07/13/2024 shows right ventricular pressure of 36 mmHg plus right atrial pressure. Also has moderate to severe tricuspid regurgitation. (3) Non-STEMI (non-ST elevated myocardial infarction): Status: Acute Problem details: Elevated troponin of 1.28 on admission now trending down to 0.44. Nondiagnostic T-wave flattening. No definite ischemic changes on EKG. It is unclear whether his elevated troponins were due primarily to an acute coronary event verses stress-induced ischemia from another medical condition which also caused his hypotension and tachycardia and elevated lactate and acute kidney injury. All of those problems improved and resolved during his hospital stay. Optimize management of heart disease, consider cardiology referral, depending on symptoms and clinical course consider ischemic testing. (4) Paroxysmal atrial fibrillation: Status: Acute Problem details: EKG in the ED shows AFib with RVR, ventricular rate 107 Converted to NSR without chemical or electrical intervention Patient reports palpitations since young adulthood As he has converted to NSR, and in setting of hypotension, metoprolol was initially held and then reduced by 50% at discharge. Fall risk. Discussed anticoagulation and risks. Takes a baby aspirin daily Outpatient follow-up with PCP for further evaluation and management (5) Anxiety: Status: Chronic Problem details: In past, was using alcohol to cope, now using his 's benzos and opiates. Outpatient follow up with PCP for further management options. Recommend starting trial of Lexapro. (6) Weakness: Status: Acute Problem details: Acute on chronic. PT/OT consults (7) Closed compression fracture of L4 vertebra: Status: Acute Problem details: Progression of his L4 compression fracture from imaging in June 01 2024 to this admission. Outpatient discussion about pain management and treatment of osteoporosis recommended (8) T12 compression fracture: Status: Chronic Problem details: Chronic T12 compression fracture. Per EMR, has been using opiates and most recently prescribed Flexeril Will manage with scheduled Tylenol, lidocaine patch, ice/heat Avoid opiates, muscle relaxers, benzos PT/OT consults As with L4 compression fracture consider treatment for osteoporosis (9) Osteoporosis: Status: Acute Problem details: Clinically as osteoporosis based on T12 and L4 compression fractures. Consider outpatient evaluation and treatment. (10) Pleural effusion: Status: Chronic Problem details: Chronic. Trace left pleural effusion per imaging today Also noted on CTA is Moderate right-sided pleural fluid collection with features suggestive of empyema - this is chronic, patient has had 2 outpatient visits with [facility] - POC is monitoring. Sampling was discussed and deferred gi saloni risks -reviewing his religious healer note at [facility] in July 2023, this is what they think about his pleural effusion: I think this is all a sequelae of a hemothorax, with persistent trapped lung and chronic organized effusion. I think the chance of this being malignancy is extremely low, given the very strong clinical history of fall, ecchymoses, discovery of the effusion, and no change in the effusion for 6 months' time. We discussed potential for followup versus no followup. I am comfortable with no further testing. He is also comfortable with that. We would not otherwise consider decortication. If in the ensuing days or weeks, he decides he would like to have one more followup, I think that is fine. Tyson Garner M.D. at 07/21/2023 (11) Acute kidney injury: Status: Acute Problem details: NAYELY improving Creatinine 1.9 on admission history of CKD stage 3. On July 14 creatinine is 0.8. Also taking celoxib for chronic pain - hold Avoid nephrotoxic medications Recheck creatinine in the morning following IVF hydration (12) Hypotension: Status: Acute Problem details: Concern for sepsis in the setting of elevated lactate, elevated white count, tachycardia. Resolved with fluid resuscitation and holding blood pressure medicines. Resume blood pressure medications as tolerated. (13) Elevated lactic acid level: Status: Acute Problem details: Resolved with fluid resuscitation. No antibiotics (14) Anemia: Status: Acute Problem details: Chronic, unknown cause. (15) Lower extremity edema: Status: Acute Problem details: Suspects this is due to right heart failure. Also on amlodipine which is likely contributing. Stop amlodipine. Continue diuretic. Lower extremity compression stockings. (16) Tricuspid regurgitation: Status: Acute Problem details: Moderate to severe on echocardiogram from 07/13/2024. Right ventricular pressure of 36 mmHg plus right atrial pressure. (17) Tachycardia: Status: Acute Problem details: Concern for sepsis in the setting of hypotension, elevated lactate elevated white count. No definite site of infection. Resolved with fluid resuscitation (18) Intentional misuse of medication: Status: Acute Problem details: Patient acknowledges recently taking his 's morphine an alprazolam for management of his pain and anxiety. He understands that he should not be doing this and in his case these medications are likely causing more harm than good. (19) Chronic lymphocytic leukemia: Status: Chronic Problem details: History of CLL in remission per [facility] chart (20) Discharge planning issues: Status: Acute Problem details: Patient lives independently with his who has dementia and is in hospice. He is the caregiver for her. He has been struggling in this role recently. They have hired in-home caregivers to help out temporarily. We have recommended that he look into assisted living for himself and for his going forward DS: Summary Hospital Course Hospital Course: Butch Musa is a 84 year old male past medical history significant for CLL, chronic peripheral edema, pleural effusion, hypertension, T12 compression fracture, anxiety, alcohol abuse sober since February 2023 is admitted to critical care from the ED in setting of acute hypoxic respiratory failure, hypotension, dehydration. Patient is seen with his daughter in-law, Merry, at bedside. Patient reports increasing weakness over the last couple of days. He did fall 2 days ago, landing on his back. He has a T12 compression fracture from February 2023 following a fall. Also an L4 compression fracture. History of recurrent falls. He has a walker at home that he does not regularly use. Denies headache or dizziness. Denies chest pain. Does report feeling his heart racing which he tells me occurs intermittently and has done so since young adulthood. Does not necessarily feel short of breath. He does get dyspnea with activity and also gets dyspnea when he is anxious. Denies recent fevers or chills. Denies abdominal pain, nausea, vomiting. No change in his stools. No change in urination. Has been taking diuretics but has not had increased urine output. No history of heart disease. He has a very remote history of minimal smoking without a diagnosis of COPD, asthma or other chronic lung disease. He was identified with small right upper and lower lobe pleural effusions after a fall in February 2023. These were thought to be possibly an empyema. 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 He has been followed up by [facility] for these findings and he tells me that they have recommended against drainage or biopsy. Several recent changes in medication. He had been taking Lasix with no response. Currently taking torsemide. Tells me he has not taken both of them on the same day, having only had 3 doses of Lasix to take. He was recently prescribed Flexeril and celoxib for his chronic back pain. On admission he denied taking other medications for his pain but then acknowledges that he has taken some of his 's Xanax and morphine for his pain and anxiety. Patient lives in his own home with his who is currently on hospice. He is the primary care provider. While he is in the hospital the family has arranged for outpatient home health support for his . Reports being sober since February 2023, his last hospitalization. Nonsmoker. PCP is Dr. Joseph though he is changing providers to Dr. Pollock at [facility]. His son, David, is his POA. His DIL, Summer, is his point of contact for this stay. He underwent echocardiogram on July 13 showing normal LV size and function, moderate right ventricular enlargement with preserved function, moderate to severe tricuspid regurgitation and a dilated inferior vena cava with decreased respiratory size variation. 07/15/2024. Patient is been able to wean off of oxygen. He is otherwise doing well. He reports significant anxiety about going home and being independent with his . No other concerns today. Again discussed with the patient and his [id number] that we strongly recommend they consider moving into an assisted living environment where there is more help and supervision. Time Spent with Patient Time attestation: Total time spent providing and/or coordinating discharge services: 50 minutes Time spent: Greater than 30 minutes Exam Narrative: Exam Narrative: He is alert and appears in no distress. Breathing is unlabored on room air. Breath sounds are clear to auscultation. Cardiovascular: S1, S2, regular rate and rhythm. Abdomen is soft without tenderness or mass. Extremities without significant edema. Const: Vital Signs, click to edit/add: Vital Signs - 24 hr 07/14/24 19:00 07/14/24 23:00 07/15/24 01:42 Temperature 98.2 F 97.8 F Pulse Rate 63 Pulse Rate [Pulse Oximeter] 86 80 Respiratory Rate 20 18 Blood Pressure [Le ft Arm] 140/88 H 126/78 Pulse Oximetry 92 92 Oxygen Delivery Me thod Nasal Cannula Nasal Cannula Oxygen Flow Rate 1 1 07/15/24 03:00 07/15/24 07:00 07/15/24 07:35 Temperature 98 F Pulse Rate 70 Pulse Rate [Pulse Oximeter] 84 85 Respiratory Rate 18 Blood Pressure [Le ft Arm] 150/91 H Pulse Oximetry 90 Oxygen Delivery Me thod Nasal Cannula Oxygen Flow Rate 1 07/15/24 07:35 07/15/24 11:00 07/15/24 11:15 Temperature 98.4 F Pulse Rate Pulse Rate [Pulse Oximeter] 85 Respiratory Rate 18 Blood Pressure [Le ft Arm] 151/89 H Pulse Oximetry 92 98 92 Oxygen Delivery Me thod Nasal Cannula Nasal Cannula Room Air Oxygen Flow Rate 1 1 07/15/24 13:00 07/15/24 14:00 Temperature 98.3 F Pulse Rate Pulse Rate [Pulse Oximeter] 89 Respiratory Rate 18 Blood Pressure [Le ft Arm] 143/86 H Pulse Oximetry 94 94 Oxygen Delivery Me thod Room Air Oxygen Flow Rate DS: Data Data Completed and Pending Completed studies during hospitalization: Procedures Detoxification Services for Substance Abuse Treatment (02/08/23) Labs on day of discharge: Labs from last 24 hours 07/15/24 06:12 WBC 10.68 RBC 3.95 L Hgb 11.7 L Hct 36.6 L MCV 93 MCH 30 MCHC 32 Plt Count 236 Sodium 136 Potassium 3.8 Chloride 99 Carbon Dioxide 32 Anion Gap 5 L BUN 21 Creatinine 0.8 Estimated Creat Clear 49.44 Estimated GFR 88 Glucose 96 Calcium 8.3 L Magnesium 2.0 Troponin I 0.20 H* C-Reactive Protein 3.1 H Preliminary micro results at discharge 07/12/24 17:58 Blood Culture - Preliminary Blood NO GROWTH AFTER 48 HOURS 07/12/24 17:58 Blood Culture - Preliminary Blood NO GROWTH AFTER 48 HOURS Discharge Plan Discharge Disposition: Home, Self-Care Date of Admission: 07/12/24 22:25 Attending Provider on Discharge: Tulio Hawkins Primary Care Provider: Sebastien Pollock Condition: Guarded Anticipated Discharge Date/Time: 07/15/24 11:14 Discharge Medications: New escitalopram oxalate 10 mg Tablet 10 mg PO DAILY Qty: 30 0RF Continued losartan 50 mg tablet 50 mg PO DAILY aspirin [Adult Low Dose Aspirin] 81 mg tablet,delayed release (DR/EC) 81 mg PO DAILY omeprazole 20 mg capsule,delayed release(DR/EC) 20 mg PO DAILY latanoprost 0.005 % drops 1 drp ophthalmic (eye) QPM lovastatin 40 mg tablet 20 mg PO HS hydrocodone-acetaminophen 5-325 mg tablet 1 tab PO Q6H PRN (Reason: pain) Qty: 10 0RF cyclobenzaprine 10 mg tablet 10 mg PO QPM PRN (Reason: muscle spasm) torsemide 20 mg tablet 20 mg PO DAILY mirtazapine 7.5 mg tablet 7.5 mg PO QPM dorzolamide-timolol (PF) 2-0.5 % dropperette 1 drp ophthalmic (eye) BID Changed metoprolol succinate 100 mg tablet extended release 24 hr 50 mg PO DAILY Qty: 30 0RF Discontinued chlorthalidone 25 mg tablet 25 mg PO DAILY celecoxib 200 mg capsule 200 mg PO DAILY amlodipine 10 mg tablet 10 mg PO DAILY Discharge Orders: Discharge Order (Routine); Ordered 07/15/24 Ordered By: Tulio Hawkins Patient Education: Escitalopram (By mouth), Heart Failure (DC) Additional Instructions: Weigh yourself every morning when you wake up. Record your weight every day. Bring the record of your weight to your doctor's appointments. If you are gaining weight this may indicate a problem with fluid retention and heart failure. 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 Be as active as you can tolerate as often as you can tolerate every day. Activity Level: Activity as Tolerated and Use Walker Discharge Diet: Heart Healthy (2 gm sodium, low fat) Follow Up Appointments: Sebastien Pollock MD [Primary Care Provider, Family Practice] - 07/17/24 2:30 pm Referral Note: Follow-up at appointment scheduled this week. Check basic metabolic panel at that appointment Forms: [employer] Info Instructions
== END 2024-07-15 14:20 | disposition home or self-care (01) | DRG 189 ==
LOC: ED 20:31 → MEDSURG 21:21
PROVIDERS: Family Medicine; Student in an Organized Health Care Education/Training Program; Admitting Provider Physician Assistant; Emergency Provider Family Medicine; PCP Family Medicine; Visit Provider Family Medicine
DX: J96.01 Acute respiratory failure with hypoxia (principal); I21.4 Non-ST elevation (NSTEMI) myocardial infarction; J86.9 Pyothorax without fistula; N17.9 Acute kidney failure, unspecified; C91.11 Chronic lymphocytic leukemia of B-cell type in remission; I13.0 Hypertensive heart and chronic kidney disease with heart failure and stage 1 through stage 4 chronic kidney disease, or unspecified chronic kidney disease; J90 Pleural effusion, not elsewhere classified; I27.20 Pulmonary hypertension, unspecified; I07.1 Rheumatic tricuspid insufficiency; I48.0 Paroxysmal atrial fibrillation; I95.9 Hypotension, unspecified; E86.0 Dehydration; N18.31 Chronic kidney disease, stage 3a; I50.810 Right heart failure, unspecified; M80.88XD Other osteoporosis with current pathological fracture, vertebra(e), subsequent encounter for fracture with routine healing; F11.90 Opioid use, unspecified, uncomplicated; F13.10 Sedative, hypnotic or anxiolytic abuse, uncomplicated; F41.9 Anxiety disorder, unspecified; D64.9 Anemia, unspecified; F10.11 Alcohol abuse, in remission; Z79.82 Long term (current) use of aspirin
CPT/HCPCS: 36415; 51798; 71045; 71275; 72100; 74177; 80048; 80306; 81001; 82077; 82803; 83605; 83735; 83880; 84145; 84484; 85025; 85027; 85610; 85730; 86140; 87040; 87086; 87631; 93005; 93306; 94761; 97110; 97116; 97161; 97165; 97530; 97535; 99285; A9270; J1650; J7030; Q9967